=== PATIENT | male | born 1950 | race Caucasian/White ===

== ENCOUNTER 2023-04-26 09:21 | Outpatient (CLI) | payer MEDICARE, SELFPAY ==
--- NOTE | 2023-05-08 19:36 | WPDSLEEPSTUD ---
Sleep Study Date of Study: 04/26/23 Ordering Provider: Daisy Christine APRN Interpreting Physician: Treasure Bain DO Sleep Study Type: Split Polysomnogram Height: 1.7 m Weight: 102.058 kg Body Mass Index: 35.2 Neck Circumference (inches): 17 [place]: 4 Reason for Sleep Study Daytime hypersomnia Sleep History The patient is a 73-year-old male with anxiety, type 2 diabetes, hyperlipidemia, hypertension and history of tobacco use that had a sleep study by his primary care for evaluation sleep apnea. The patient denies awakening from sleep short of breath. He denies awakening at night with heartburn, belching or cough. He denies snoring. He occasionally has trouble sleeping when he has a cold. He occasionally wakes up gasping for air throughout the night. He denies having breathing problems at night observed by himself or others. He denies sweating excessively at night. He denies having heart palpitations or irregular heartbeats during the night. He occasionally falls asleep during the day but never while driving. He occasionally experiences loss of muscle tone when extremely emotional. He denies having trouble at school or work due to sleepiness. He denies sleep paralysis and hypnagogic/ hypnopompic hallucinations. He denies feeling afraid of going to sleep. He denies having nightmares. He occasionally remembers his dreams. He denies having thoughts racing through his mind. He denies feeling sad, depressed or anxious. He denies having muscular tension. He occasionally notices parts of his body jerk. He denies kicking during the night. He occasionally has crawling and aching feelings in his legs and occasionally has leg pain during the night. He occasionally grinds his teeth during sleep and occasionally awakens with morning jaw pain. He occasionally is bothered by pain during the day and occasionally awakened by pain during the night. He occasionally wakes up feeling stiff in morning. He occasionally wakes up with sore or achy muscles. He occasionally wakes up with pain in the neck, spine and other joints. He goes to bed at 9:00 p.m. on weekdays and at 10:00 p.m. on the weekends. He is able to fall asleep immediately. He wakes up 3-4 times throughout the night for unknown reasons. He wakes up at 7:00 a.m. on weekdays. He typically gets 8 hours of sleep per night. He will stay in bed for 5-10 minutes after waking up in the morning. He currently lives with his . He denies consuming caffeinated beverages within 2 hours of bedtime. He will engage in physical exercise before bedtime. He denies reading and watching television before falling asleep. He will take naps in the afternoon or the evening but they are not refreshing. He denies consuming caffeinated beverages throughout the day. He is a former smoker. He denies alcohol and recreational drug use. [facility] Past Medical History Medical History Anxiety disorder Diabetes mellitus type 2 in nonobese Hyperlipidemia Hypertension Impaired glucose tolerance (oral) Family History Family History Father Patient's father is in good health, Onset Age: 89 Mother Acute myocardial infarction, Onset Age: 67 Family history of diabetes mellitus in first degree relative Patient's mother is Other Family history of elevated blood lipids Social History Social History Smoking packs per day: 1.5 Smoking cigarettes per day: 30.0 Years smoked: 55 Smoking pack-years: 82.50 Smoking status: Former smoker Tobacco type: cigarettes Second hand tobacco smoke exposure: No Smoking end date: 04/03/10 Alcohol intake: current Alcohol use details: Social Substance use: never Substance use type: does not use Medications Home Medications Medication Instru
[2023-05-08 19:41] VITALS: BMI 35.2
== END 2023-04-27 07:06 | disposition home or self-care (01) ==
LOC: ANHCSM 09:22
PROVIDERS: PCP Nurse Practitioner Family; Visit Provider Nurse Practitioner Family
DX: G47.00 Insomnia, unspecified (principal); E66.9 Obesity, unspecified; G47.33 Obstructive sleep apnea (adult) (pediatric); G47.61 Periodic limb movement disorder
CPT/HCPCS: 95811

== ENCOUNTER 2023-11-22 01:28 | Day surgery (SDC) | payer MEDICARE, SELFPAY ==
[2023-11-01 14:59] VITALS: BMI 33.5
[2023-11-22 13:40] VITALS: BP 117/60; PULSE 83; RESP 14; TEMP 36.4; O2SAT 96; BMI 31.3
[2023-11-22 14:04] LABS: Glucose Point of Care 94 mg/dl (65-105)
--- NOTE | 2023-11-22 14:08 | WPDANESEPPF ---
Anes - Initial Pre Proc Eval Procedure: Operation Date: 11/22/23 15:00 Proposed Procedures p Esophagogastroduodenoscopy - Maxime Sandoval MD Date/Time: 11/22/23 14:08 Surgeon: Maxime Sandoval MD Pre Op Diagnosis: Other Dysphagia Patient Data Age: 73 Gender: M Height: 1.7 m Weight: 90.8 kg Last Vital Signs Temp 97.6 F 11/22/23 13:40 Pulse 83 11/22/23 13:40 Resp 14 11/22/23 13:40 BP 117/60 11/22/23 13:40 Pulse Ox 96 11/22/23 13:40 O2 Del Method Room Air 11/22/23 13:40 Allergies Allergy/AdvReac Type Severity Reaction Status Date / Time No Known Allergies Allergy Verified 11/22/23 13:47 Home Medications Medication Instructions Recorded Confirmed Type loratadine 10 mg tablet (Claritin) 10 mg PO DAILY 02/15/19 11/22/23 History lorazepam 0.5 mg tablet (Ativan) 0.5 mg PO BID PRN anxiety #90 tabs 05/20/22 11/22/23 Rx escitalopram oxalate 20 mg tablet See Rx Instructions .Route 01/16/23 11/22/23 Rx .COMPLEX #90 tabs carvedilol 6.25 mg tablet See Rx Instructions .Route 01/25/23 11/22/23 Rx .COMPLEX #180 tabs atorvastatin 40 mg tablet See Rx Instructions .Route 07/20/23 11/22/23 Rx .COMPLEX #90 tabs albuterol sulfate 90 mcg/actuation 2 inh inhalation Q4H PRN shortness 08/16/23 11/22/23 Rx aerosol inhaler (ProAir HFA) of breath or wheezing #8.5 grams valsartan 320 See Rx Instructions .Route 09/04/23 11/22/23 Rx mg-hydrochlorothiazide 12.5 mg .COMPLEX #90 tabs tablet ferrous sulfate 325 mg (65 mg 325 mg PO DAILY 10/09/23 11/22/23 History iron) tablet (Feosol) omeprazole 40 mg capsule,delayed 40 mg PO DAILY #90 caps 10/09/23 11/22/23 Rx release semaglutide 0.25 mg or 0.5 mg (2 0.5 mg (0.736 mL) subcut WEEKLY #9 10/12/23 11/22/23 Rx mg/3 mL) subcutaneous pen injector mL (Ozempic) Laboratory Tests 11/22/23 13:52 POC Capillary Glucose 94 mg/dl (65-105) Patient hx anesthesia problems: none Family hx anesthesia problems: none Results Review: All pre-operative results and documents have been reviewed as part of the pre-operative evaluation. [facility] Past Medical History Medical History Anxiety disorder Diabetes mellitus type 2 in nonobese Hyperlipidemia Hypertension Impaired glucose tolerance (oral) Family History Family History Father Patient's father is in good health, Onset Age: 89 Mother Acute myocardial infarction, Onset Age: 67 Family history of diabetes mellitus in first degree relative Patient's mother is Other Family history of elevated blood lipids Social History Social History Smoking packs per day: 1.5 Smoking cigarettes per day: 30.0 Years smoked: 55 Smoking pack-years: 82.50 Smoking status: Former smoker Tobacco type: cigarettes Second hand tobacco smoke exposure: No Smoking end date: 04/03/10 Alcohol intake: current Alcohol use details: Social Substance use: never Substance use type: does not use Living arrangements: with family Spiritual care concerns: No Anes - Eval Final PreProcedure Day of Procedure 11/22/23 14:08 Patient weight: obese Heart: regular rate and rhythm Lungs: clear to auscultation Airway: Mallampati scale class II Neurological: alert and oriented Last oral intake: >/= 8 hours ASA classification: III Emergent: no Anesthetic plan: proceed Anesthesia type and monitoring: general GIVS and standard monitoring Results Review: All pre-operative results and documents have been reviewed as part of the pre-operative evaluation. Informed Consent: The patient's anesthetic plan and its attendant risks and benefits were discussed with the patient/family/POA. Questions were solicited and answers provided to the satisfaction of the patient/family/POA.
[2023-11-22] MEDS: LACTATED RINGERS 1,000 ML 150 ML IV CONT (14:21)
--- NOTE | 2023-11-22 14:36 | PM.HPGS ---
History of Present Illness History of Present Illness Consent: Risks, benefits, and alternatives have been discussed and questions answered. Patient agrees to proceed with procedure. Chief complaint: Other Dysphagia Narrative: Karthik Ordonez is a 73 year old male here for first EGD, h/o gerd on omeprazole, also dysphagia Review of Systems Review of Systems: All systems reviewed & are unremarkable except as noted in HPI and below PMFSH Past Medical History Medical History (Updated 11/22/23 @ 14:37 by Maxime Sandoval MD) Anxiety disorder Diabetes mellitus type 2 in nonobese GERD (gastroesophageal reflux disease) Hyperlipidemia Hypertension Impaired glucose tolerance (oral) Family History Family History Father Patient's father is in good health, Onset Age: 89 Mother Acute myocardial infarction, Onset Age: 67 Family history of diabetes mellitus in first degree relative Patient's mother is Other Family history of elevated blood lipids Social History Social History Smoking packs per day: 1.5 Smoking cigarettes per day: 30.0 Years smoked: 55 Smoking pack-years: 82.50 Smoking status: Former smoker Tobacco type: cigarettes Second hand tobacco smoke exposure: No Smoking end date: 04/03/10 Alcohol intake: current Alcohol use details: Social Substance use: never Substance use type: does not use Living arrangements: with family Spiritual care concerns: No Meds Home Medications and Allergies Home Medications Medication Instructions Recorded Confirmed Type loratadine 10 mg tablet (Claritin) 10 mg PO DAILY 02/15/19 11/22/23 History lorazepam 0.5 mg tablet (Ativan) 0.5 mg PO BID PRN anxiety #90 tabs 05/20/22 11/22/23 Rx escitalopram oxalate 20 mg tablet See Rx Instructions .Route 01/16/23 11/22/23 Rx .COMPLEX #90 tabs carvedilol 6.25 mg tablet See Rx Instructions .Route 01/25/23 11/22/23 Rx .COMPLEX #180 tabs atorvastatin 40 mg tablet See Rx Instructions .Route 07/20/23 11/22/23 Rx .COMPLEX #90 tabs albuterol sulfate 90 mcg/actuation 2 inh inhalation Q4H PRN shortness 08/16/23 11/22/23 Rx aerosol inhaler (ProAir HFA) of breath or wheezing #8.5 grams valsartan 320 See Rx Instructions .Route 09/04/23 11/22/23 Rx mg-hydrochlorothiazide 12.5 mg .COMPLEX #90 tabs tablet ferrous sulfate 325 mg (65 mg 325 mg PO DAILY 10/09/23 11/22/23 History iron) tablet (Feosol) omeprazole 40 mg capsule,delayed 40 mg PO DAILY #90 caps 10/09/23 11/22/23 Rx release semaglutide 0.25 mg or 0.5 mg (2 0.5 mg (0.736 mL) subcut WEEKLY #9 10/12/23 11/22/23 Rx mg/3 mL) subcutaneous pen injector mL (Ozempic) Allergies Allergy/AdvReac Type Severity Reaction Status Date / Time No Known Allergies Allergy Verified 11/22/23 13:47 Vital Signs Vital Signs - 24 hr 11/22/23 13:40 Temperature 97.6 F Pulse Rate 83 Respiratory Rate 14 Blood Pressure 117/60 Pulse Oximetry 96 Oxygen Delivery Room Air Exam Const: General: comfortable and no acute distress HENMT: Face/Nose/Sinus: Normal nares present Eyes: General: appearance normal, both eyes and all related structures Neck: Neck: no JVD Resp: Auscultation: clear to auscultation bilaterally Cardio: Rate: regular rate Rhythm: regular rhythm GI: Inspection: non-distended GI Palp: Yes Soft to palpation Skin: General skin exam: normal color Neuro: General: gait normal Speech: normal speech Extrem: General: normal to inspection Psych: Mental Status: mental status grossly normal Assessment and Plan Assessment and plan (1) Esophageal dysphagia: Code(s): R13.19 - Other dysphagia Status: Acute Assessment and Plan: egd (2) GERD (gastroesophageal reflux disease): Code(s): K21.9 - Gastro-esophageal reflux disease without esophagiti
[2023-11-22 14:54] VITALS: BP 106/69; PULSE 83; RESP 18; O2SAT 98
[2023-11-22 15:04] VITALS: BP 102/60; PULSE 77; RESP 22; O2SAT 98
[2023-11-22 15:14] VITALS: BP 105/60; PULSE 72; RESP 17; O2SAT 98
== END 2023-11-22 15:41 | disposition home or self-care (01) ==
PROVIDERS: PCP Nurse Practitioner Family; Visit Provider Internal Medicine Gastroenterology
PROC: 0DJ08ZZ Inspection of Upper Intestinal Tract, Via Natural or Artificial Opening Endoscopic (ICD-10-PCS; CPT 43235; principal; 2023-11-22 15:00)
DX: C15.4 Malignant neoplasm of middle third of esophagus (principal); C15.5 Malignant neoplasm of lower third of esophagus; R13.19 Other dysphagia; K21.9 Gastro-esophageal reflux disease without esophagitis; I10 Essential (primary) hypertension; E78.5 Hyperlipidemia, unspecified; E11.9 Type 2 diabetes mellitus without complications; F41.9 Anxiety disorder, unspecified; E66.9 Obesity, unspecified; Z68.31 Body mass index [BMI] 31.0-31.9, adult; Z79.51 Long term (current) use of inhaled steroids; Z79.85 Long-term (current) use of injectable non-insulin antidiabetic drugs; Z87.891 Personal history of nicotine dependence; Z82.49 Family history of ischemic heart disease and other diseases of the circulatory system
CPT/HCPCS: 43239; 82948; 88305; 88342; J2704; J7120

== ENCOUNTER 2023-11-29 08:29 | Outpatient (CLI) | payer MEDICARE, SELFPAY ==
--- NOTE | ~2023-11-29 | CT_ITS ---
Clinical Indication: Dysphagia, other diseases of esophagus CT Scan of the Chest, Abdomen, and Pelvis with Contrast: Technique: Contiguous sections were acquired throughout the chest, abdomen, and pelvis after intraven ous administration of 100 cc of Omnipaque 350. Dose reduction technique was used on this scan by uti lizing automated exposure control and iterative reconstruction technique. The dose-length product (DL P) was 1086.47 mGy-cm. Findings: There is irregular masslike circumferential wall thickening of the distal soft tissues extending to t he GE junction region, with lesion measuring approximately 5.4 x 3.9 cm in transverse dimensions, and approximately at least 9 cm in craniocaudal extent. There is mild upstream distention of the esophag us. There are multiple mildly enlarged mediastinal lymph nodes, suspicious for za metastatic disea se, most notably along the right paratracheal stripe and in the AP window region (axial image 44 for example). Mildly enlarged subcarinal node also likely present. Mediastinal vascular structures are un remarkable. No pericardial effusion. Minimal pleural fluid present bilaterally. The lungs are clear. No pulmonary nodules or infiltrates are noted. Probable mild emphysema. There are several small hypodense hepatic lesions, largest measuring 13 mm (series 3 images 106, 108, 122, 130), which could represent metastatic lesions. There is metastatic lymphadenopathy versus poss ibly extension of the primary mass into the epigastric/gastrohepatic ligament region, with conglomera te presumed za metastatic disease in this region measuring 5.8 x 3.4 cm (series 3 image 29). There are additional enlarged periaortic/retroperitoneal lymph nodes, compatible with metastatic disease, several which are posterior to the aorta and lifting off the spine. The spleen, pancreas, gallbladder, adrenals and kidneys are within normal limits. There are atheroscl erotic calcifications of the aorta. No bowel obstruction or bowel wall thickening. There is no evidence to suggest acute appendicitis. Urinary bladder is unremarkable. No pelvic mass seen. No ascites. 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 Mild upstream distention of the esophagus. Metastatic lymphadenopathy, including mediastinal lymphadenopathy, metastatic epigastric/gastrohepati c ligament region lymphadenopathy, and additional retroperitoneal metastatic lymphadenopathy. Please see details above. Several hypodense hepatic lesions measure up to 13 mm, suspicious for metastatic disease unless prove n otherwise. Minimal pleural fluid bilaterally. Reviewed, dictated and finalized at location M. Impression: Findings consistent with primary esophageal carcinoma the distal third of the e sophagus, with lesion measuring approximately 5.4 x 3.9 x 9 cm in extent. Mild upstream distention of the esophagus. Metastatic lymphadenopathy, including mediastinal lymphadenopathy, metastatic e pigastric/gastrohepatic ligament region lymphadenopathy, and additional retrope ritoneal metastatic lymphadenopathy. Please see details above. Several hypodense hepatic lesions measure up to 13 mm, suspicious for metastati c disease unless proven otherwise. Minimal pleural fluid bilaterally.
[2023-11-29 09:17] LABS: Estimated Glomerular Filt Rate > 60
== END 2023-11-29 08:30 | disposition home or self-care (01) ==
LOC: ANHIMG 08:33
PROVIDERS: PCP Nurse Practitioner Family; Visit Provider Internal Medicine Gastroenterology
DX: C77.8 Secondary and unspecified malignant neoplasm of lymph nodes of multiple regions (principal); K76.9 Liver disease, unspecified; K22.89 Other specified disease of esophagus; R13.10 Dysphagia, unspecified
CPT/HCPCS: 71260; 74177; Q9967

== ENCOUNTER 2023-12-13 15:44 | Outpatient (CLI) | payer MEDICARE, SELFPAY ==
[2023-12-13 15:58] LABS: Basophils Absolute Auto 0.1 K/mm3 (0.0-0.1); Basophils Percent Auto 0.6 % (0.2-1.2); Eosinophils Absolute Auto 0.1 K/mm3 (0-0.3); Eosinophils Percent Auto 1.4 % (0-4.4); Hematocrit 32.4 % (42.0-52.0); Hemoglobin 10.3 g/dL (14.0-18.0); Immature Granulocyte Absolute 0.03 K/mm3 (0.00-0.031); Immature Granulocyte Percent A 0.3 % (0-0.5); Lymphocytes Absolute Auto 0.76 K/mm3 (0.9-3.2); Lymphocytes Percent Auto 8.2 % (18.3-44.2); Mean Corpuscular HGB Conc 31.8 g/dl (32-36); Mean Platelet Volume 8.3 fl (7.4-10.4); Monocytes Absolute Auto 0.8 K/mm3 (0.1-0.6); Monocytes Percent Auto 8.6 % (2.6-8.5); Neutrophils Absolute Auto 7.5 K/mm3 (1.3-6.7); Neutrophils Percent Auto 80.9 % (45.5-73.1); Platelet Count Result 334 k/mm3 (150-375); Red Blood Count 3.68 M/mm3 (4.6-6.20); Red Cell Distribution Width 14.1 % (11.5-14.5); White Blood Count 9.3 K/mm3 (4.5-10.0)
[2023-12-13 19:25] LABS: Alanine Aminotransferase 17 U/L (6-50); Albumin Level 3.9 g/dL (3.5-5.1); Alkaline Phosphatase 65 U/L (38-126); Anion Gap 13 mmol/L (4-12); Aspartate Amino Transferase 36 U/L (17-59); Bilirubin,Total 0.4 mg/dL (0.2-1.3); Blood Urea Nitrogen 16 mg/dL (9-20); Calcium 9.1 mg/dL (8.4-10.2); Carbon Dioxide 25 mmol/L (22-30); Chloride 96 mmol/L (98-107); Estimated Glomerular Filt Rate > 60; Glucose 110 mg/dL (65-110); Sodium 134 mmol/L (137-145)
[2023-12-13 19:26] LABS: Iron 34 ug/dL (49-181)
[2023-12-13 19:36] LABS: Percent Iron Saturation 13 % (20-50)
[2023-12-13 20:31] LABS: Folic Acid 9.2 ng/mL (2.76->20)
== END 2023-12-13 15:45 | disposition home or self-care (01) ==
LOC: ANHLAB 15:46
PROVIDERS: PCP Nurse Practitioner Family; Visit Provider Internal Medicine Hematology & Oncology
DX: D64.9 Anemia, unspecified (principal)
CPT/HCPCS: 36415; 80053; 82607; 82728; 82746; 83540; 83550; 85025

== ENCOUNTER 2023-12-22 10:07 | Outpatient (CLI) | payer MEDICARE, SELFPAY ==
--- NOTE | ~2023-12-22 | PE_ITS ---
EXAMINATION: PET skull to mid thigh DATE: 12/22/2023 12:28 INDICATION: Esophageal cancer TECHNIQUE: Blood glucose level was 89 mg/dL. 11.142 mCi of 18-fluorodeoxyglucose (18-FDG) was adminis tered i.v. Low dose computed tomography (CT) images were acquired from the base of the brain to the p roximal thighs for attenuation correction and anatomic localization. Positron emission tomography (PE T) images were acquired in the same distribution beginning 87 minutes after injection. Images includi ng fused PET/CT images were reconstructed in axial, coronal, and sagittal planes. Automated exposure control technique was employed. The dose-length product was 1144.06mGy-cm. COMPARISON: None FINDINGS: Head/neck: There is symmetric increased activity in the oral cavity, palatine and lingual tonsils, laryngeal mus cles and ocular muscles without CT correlate, likely physiologic. There are couple FDG avid, mildly p rominent but still normal-sized bilateral inferior jugular chain lymph nodes measuring 9 mm in short axis diameter with maximal severe 14 on the left and 8 mm with maximal SUV of 30.4 on the right. No o ther more cephalad pathologically enlarged or FDG avid cervical lymph nodes. Chest: Small bilateral pleural effusions with mild dependent atelectasis in bilateral lower lobes. Additiona l discoid atelectasis at the lingula and right middle lobe. Calcified lingular nodule along with calc ified left hilar lymph node consistent with old granulomatous disease. Heart size is normal. Atherosc lerotic coronary artery calcification is. No pericardial effusion. Thoracic aorta is normal in calibe r. Prominent wall thickening and FDG uptake in the distal third of the esophagus consistent with prov ided history of esophageal cancer. There are several enlarged and normal-sized FDG avid mediastinal l ymph nodes. This includes a 3.3 x 1.7 cm prevascular lymph node with maximal SUV of 34.5 and a 3.2 x 2.9 cm paraesophageal lymph node at the level of T9-T10 with maximal SUV of 13.7 Abdomen/pelvis/proximal thighs: There is conglomeration of FDG avid gastrohepatic lymph nodes many of which are difficult to distingu stanislaw from the adjacent proximal stomach stomach consistent with additional metastatic disease. Additio nal enlarged and FDG avid retroperitoneal lymph nodes around the pancreas and along the mid and upper abdominal aorta and inferior vena cava. There are 4 FDG avid hepatic masses concerning for metastati c disease which are nearly indiscernible on CT imaging was vague decreased attenuation in the region of the FDG uptake. The largest in segment IVb measures approximately 3 cm with maximal SUV of 28.3. G allbladder, spleen, pancreas and bilateral adrenal glands are normal. Physiologic renal accumulation and excretion of FDG activity in the kidneys, bladder and along portions of ureters. Mild uptake sca ttered throughout the bowels without radiologic correlate, also likely physiologic. Moderate scattere d diverticulosis without adjacent inflammatory stranding to suggest diverticulitis. Normal appendix. Musculoskeletal: There is diffuse mild marrow uptake throughout the bones without suspicious lytic or blastic bone les ions to suggest metastatic disease. There is severe cervical and lumbar and moderate intervening thor acic spondylosis. Mild uptake overlying the right greater trochanter consistent with trochanteric bur sitis. IMPRESSION: 1. Wall thickening and prominent increased FDG uptake at the distal third of the esophagus consistent with reported primary esophageal cancer with FDG avid metastatic lymphadenopathy at the lower neck, mediastinum and upper abdomen along with 4 FDG avid avid liver lesions also consistent with metastati c disease. Reviewed, dictated and finalized at location B. IMPRESSION
[2023-12-22 10:54] LABS: Glucose Point of Care 89 mg/dl (65-105)
== END 2023-12-22 10:08 | disposition home or self-care (01) ==
PROVIDERS: PCP Nurse Practitioner Family; Visit Provider Internal Medicine Hematology & Oncology
DX: C15.4 Malignant neoplasm of middle third of esophagus (principal)
CPT/HCPCS: 78815; A9552

== ENCOUNTER 2023-12-22 12:24 | Outpatient (CLI) | payer MEDICARE, SELFPAY ==
[2023-12-22 13:48] LABS: INR 1.1; Partial Thromboplastin Time 28.5 Seconds (22.3-36.8); Prothrombin Time 14.7 Seconds (11.1-14.7)
== END 2023-12-22 12:25 | disposition home or self-care (01) ==
LOC: ANHSURGERY 12:27
PROVIDERS: PCP Nurse Practitioner Family; Visit Provider Surgery
DX: C15.9 Malignant neoplasm of esophagus, unspecified (principal); Z01.818 Encounter for other preprocedural examination
CPT/HCPCS: 36415; 85610; 85730

== ENCOUNTER 2023-12-24 10:25 | Outpatient (CLI) | payer MEDICARE, SELFPAY ==
--- NOTE | ~2023-12-24 | MR_ITS ---
EXAMINATION: MR brain/brain stem wo/w con DATE: 12/24/2023 11:25 INDICATION: Cancer of middle third of the esophagus. TECHNIQUE: Magnetic resonance imaging (MRI) of the brain and brainstem was performed without and with 19 mL MultiHance intravenous contrast. COMPARISON: None. FINDINGS: There is an old microhemorrhage in right cerebellum. There are scattered areas of nonspecif ic increased T2-weighted signal intensity in the cerebral white matter, which is within normal limits for the patient's age. There is no acute ischemic infarct or abnormal mass lesion. The ventricles ar e normal in size. There are likely changes of ocular lens replacement surgeries. There is mild mucosa l thickening in the ethmoid sinuses. The mastoid air cells are normal. IMPRESSION: 1. No evidence of metastatic disease. Reviewed, dictated and finalized at location A.
== END 2023-12-24 10:26 | disposition home or self-care (01) ==
PROVIDERS: PCP Nurse Practitioner Family; Visit Provider Internal Medicine Hematology & Oncology
DX: C15.4 Malignant neoplasm of middle third of esophagus (principal)
CPT/HCPCS: 70553; A9577

== ENCOUNTER 2023-12-25 02:26 | Day surgery (SDC) | payer MEDICARE, SELFPAY ==
--- NOTE | 2023-12-21 13:04 | PC.NURSE ---
Report to the Outpatient Waiting Room, entrance under the green pavilion located off [facility], at time _06:00___on date _12/25/23 . Planned Procedure Time: _07:30am .? Time changes happen often and if your time is changed the preop area will call you the afternoon before. - You and your visitor will be asked to self-screen and do not enter if you have any COVID symptoms. Please call surgeon if you need to reschedule. - A mask is optional within the hospital at this time. Patients may have clear liquids (water, carbonated beverages, clear teas, apple juice) until 3 hours prior to surgery with a maximum of 20 ounces. - No food from midnight until time of surgery and no smoking Take only the following medications with a SIP of water on the morning of surgery: ___ Lorazepam if needed. . DO NOT STOP ANY OF YOUR OTHER PRESCRIPTION MEDICATIONS PRIOR TO SURGERY EXCEPT THE FOLLOWING Medications to discontinue per physician None ____ Date to take last dose None Please no make-up, nail belarusian, hairspray, perfume, deodorant, or body powder the day of surgery.? No jewelry (including any body piercings) or valuables the day of surgery, leave them at home.? Please take a shower or bath the night before, or the morning of, surgery with an antibacterial soap.? Wear comfortable, loose fitting clothing. - Jewelry must be removed prior to entering the operating room.? Rings and piercings that are not removed may be cut off. - The hospital will not accept responsibility for valuables.? - Please leave all valuables, including medications, at home the day of surgery. If you are going home after surgery, a licensed courier delivery driver must drive you home.? - NO public transportation without another adult if you receive anesthesia. - We recommend that an adult stay with you for 24 hours following discharge. - We also recommend that you do not drive, make important decision, drink alcoholic beverages, or take any drugs that were not prescribed by your health care provider for at least 24 hours after your discharge time. Follow any additional instructions given to you from your surgeon. Pt to get his labs done tomorrow after PET scan in main Lab. Telephone instructions given to _patient Arina and asked if any additional questions and then verbalized understanding. Patient advised to call surgeon office or pre surgery nurse liaison [phone] if any additional questions.
[2023-12-21 13:10] VITALS: BMI 30.4
--- NOTE | ~2023-12-25 | XR_ITS ---
EXAMINATION: XR fl guide central line place DATE: 12/25/2023 08:09 INDICATION: Port placement. TECHNIQUE: A single intraoperative fluoroscopic view of the chest was obtained. I was not present. Fl uoroscopy exposure time was 30 seconds. COMPARISON: Chest CT 11/29/2023 FINDINGS: There is a right subclavian port with tip in superior vena cava. IMPRESSION: 1. Right subclavian port with tip in superior vena cava. Reviewed, dictated and finalized at location A.
--- NOTE | ~2023-12-25 | XR_ITS ---
EXAMINATION: XR chest port-a-cath/central DATE: 12/25/2023 08:36 INDICATION: Port placement. TECHNIQUE: A single frontal view of the chest was obtained. COMPARISON: Chest CT 11/29/2023 FINDINGS: A calcified left lung nodule is consistent with old granulomatous disease. There are airspa ce opacities in the lower lung zones. No pleural effusion or pneumothorax. The heart size is normal. There is a right subclavian port with tip in superior vena cava. IMPRESSION: 1. Port tip in superior vena cava. 2. Airspace opacities in the lower lung zones, likely atelectasis. Reviewed, dictated and finalized at location A.
[2023-12-25 06:47] LABS: Glucose Point of Care 118 mg/dl (65-105)
[2023-12-25 07:00] VITALS: BP 176/86; PULSE 66; RESP 14; TEMP 36.2; O2SAT 98
[2023-12-25] MEDS: LACTATED RINGERS 1,000 ML 30 ML IV CONT (07:00)
--- NOTE | 2023-12-25 07:06 | WPDANESEPPF ---
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 Patient Data Age: 73 Gender: M Height: 1.7 m Weight: 88 kg Allergies Allergy/AdvReac Type Severity Reaction Status Date / Time No Known Allergies Allergy Verified 12/21/23 13:07 Home Medications Medication Instructions Recorded Confirmed Type loratadine 10 mg tablet (Claritin) 10 mg PO DAILY 02/15/19 12/21/23 History atorvastatin 40 mg tablet See Rx Instructions .Route 07/20/23 12/21/23 Rx .COMPLEX #90 tabs omeprazole 40 mg capsule,delayed 40 mg PO DAILY #90 caps 10/09/23 12/21/23 Rx release lorazepam 0.5 mg tablet (Ativan) 0.5 mg PO BID PRN anxiety #90 tabs 11/30/23 12/21/23 Rx Laboratory Tests 12/25/23 06:45 POC Capillary Glucose 118 H mg/dl (65-105) Patient hx anesthesia problems: none Family hx anesthesia problems: none Results Review: All pre-operative results and documents have been reviewed as part of the pre-operative evaluation. [facility] Past Medical History Medical History Anxiety disorder Diabetes mellitus type 2 in nonobese GERD (gastroesophageal reflux disease) Hyperlipidemia Hypertension Impaired glucose tolerance (oral) Mass of esophagus Family History Family History Father Patient's father is in good health, Onset Age: 89 Mother Acute myocardial infarction, Onset Age: 67 Family history of diabetes mellitus in first degree relative Patient's mother is Other Family history of elevated blood lipids Social History Social History Smoking packs per day: 1.5 Smoking cigarettes per day: 30.0 Years smoked: 40 Smoking pack-years: 60.00 Smoking status: Former smoker Tobacco type: cigarettes Second hand tobacco smoke exposure: No Smoking end date: 04/03/10 Alcohol intake: current Alcohol use details: Social Substance use: never Substance use type: does not use Living arrangements: with family Additional living arrangements comments: Spiritual care concerns: No Anes - Eval Final PreProcedure Day of Procedure 12/25/23 07:06 Patient weight: obese Heart: regular rate and rhythm Lungs: decreased breath sounds Airway: Mallampati scale class III Neurological: alert and oriented Last oral intake: >/= 8 hours ASA classification: IV Emergent: no Anesthetic plan: proceed Anesthesia type and monitoring: general GIVS and standard monitoring Results Review: All pre-operative results and documents have been reviewed as part of the pre-operative evaluation. Informed Consent: The patient's anesthetic plan and its attendant risks and benefits were discussed with the patient/family/POA. Questions were solicited and answers provided to the satisfaction of the patient/family/POA.
--- NOTE | 2023-12-25 07:21 | PM.IMHP ---
H&P: HPI History of Present Illness Date/Time: 12/25/23 07:21 Chief Complaint: Esophageal cancer Narrative: Pt has dx of esophageal CA and needs to have chemo tx. He presents for placement of port today. No prior hx of port or central lines. Review of Systems Review of Systems: The remainder of the review of systems to include constitutional, HEENT, cardiovascular, respiratory, GI, , integumentary, musculoskeletal, endocrine, immunologic, hematologic, psychiatric, and neurologic are all negative except for which is mentioned above in the HPI. [facility] Past Medical History Medical History Anxiety disorder Diabetes mellitus type 2 in nonobese GERD (gastroesophageal reflux disease) Hyperlipidemia Hypertension Impaired glucose tolerance (oral) Mass of esophagus Family History Family History Father Patient's father is in good health, Onset Age: 89 Mother Acute myocardial infarction, Onset Age: 67 Family history of diabetes mellitus in first degree relative Patient's mother is Other Family history of elevated blood lipids Social History Social History Smoking packs per day: 1.5 Smoking cigarettes per day: 30.0 Years smoked: 40 Smoking pack-years: 60.00 Smoking status: Former smoker Tobacco type: cigarettes Second hand tobacco smoke exposure: No Smoking end date: 04/03/10 Alcohol intake: current Alcohol use details: Social Substance use: never Substance use type: does not use Living arrangements: with family Additional living arrangements comments: Spiritual care concerns: No Meds Home Medications and Allergies Home Medications Medication Instructions Recorded Confirmed Type loratadine 10 mg tablet (Claritin) 10 mg PO DAILY 02/15/19 12/21/23 History atorvastatin 40 mg tablet See Rx Instructions .Route 07/20/23 12/21/23 Rx .COMPLEX #90 tabs omeprazole 40 mg capsule,delayed 40 mg PO DAILY #90 caps 10/09/23 12/21/23 Rx release lorazepam 0.5 mg tablet (Ativan) 0.5 mg PO BID PRN anxiety #90 tabs 11/30/23 12/21/23 Rx Allergies Allergy/AdvReac Type Severity Reaction Status Date / Time No Known Allergies Allergy Verified 09/19/24 13:07 Exam Const: General: comfortable and no acute distress HENMT: Ears: TM's normal bilaterally Face/Nose/Sinus: Normal nares present Mouth: Yes moist mucous membranes Eyes: General: appearance normal, both eyes and all related structures Sclera: sclerae normal Pupils: Equal, round and reactive pupils present EOM: EOMs intact bilaterally Neck: Neck: supple and no JVD Resp: Effort & Inspection: normal respiratory effort Auscultation: clear to auscultation bilaterally Cardio: Rate: regular rate Rhythm: regular rhythm GI: GI Palp: Yes Soft to palpation, No Firmness to palpation present (GI), No Tenderness to palpation present (GI), No Guarding due to palpation present (GI) and No Hernia present Skin: General skin exam: normal color and no rashes or lesions noted Neuro: General: gait normal Speech: normal speech Motor exam (neuro): 5/5 motor strength present throughout Sensory Exam: normal sensation Psych: Mental Status: mental status grossly normal Affect: normal affect Assessment and Plan Assessment and plan (1) Mass of esophagus: Code(s): K22.89 - Other specified disease of esophagus Status: Acute Assessment and Plan: Pt has esophageal CA. Will proceed with placement of portacatheter today. Risks, benefits, indications, and expected outcomes were discussed in detail with the patient and/or family. They understand and I have answered all other questions. They wished to proceed with surgery as outlined above. Risk of iatrogenic pneumothorax and bleeding needing blood transfusion or chest tube discussed
--- NOTE | 2023-12-25 07:25 | WPDHPUPDATE1 ---
History and Physical Update Update Date/Time: 12/25/23 07:25 History and Physical has been reviewed, including an updated exam of the patient. There are NO changes in the patient's condition. Risks, benefits, and alternatives have been discussed and questions answered. Patient agrees to proceed with procedure.
[2023-12-25] MEDS: LIDO 1%/EPINEPHRINE 1:100,000 50 ML VIAL 20 ML INFILTRATE (07:29)
[2023-12-25] MEDS: HEPARIN SODIUM 5,000 UNITS/ML VIAL 5000 UNITS IRRIGATION (07:29)
[2023-12-25] MEDS: BUPivacaine HCL 0.5% 10 ML AMP 20 ML INFILTRATE (07:29)
[2023-12-25] MEDS: HEPARIN SODIUM 1,000 UNITS/ML VIAL 1000 UNITS IV PUSH (07:29)
[2023-12-25] MEDS: ceFAZolin 2 GM/D5W 50 ML 2 GM/50 ML BAG IVPB (07:30)
[2023-12-25 08:21] VITALS: BP 97/54; PULSE 91; RESP 12; O2SAT 97
--- NOTE | 2023-12-25 08:23 | W.PM.PROC2 ---
Procedure Note - Detailed Date of Procedure 12/25/23 Pre-op Diagnosis Cancer of middle 3rd of esophagus Post-op Diagnosis Same Procedure Performed Placement of right subclavian vein single-lumen port a catheter with intraoperative fluoroscopy Surgeon Av Cui MD Anesthesia MAC Indications Patient is 71-year-old gentleman who has esophageal carcinoma. He is in a chemotherapy treatments. He presents now for placement of a greer catheter. Findings None significant Description of Procedure After informed consent was obtained patient brought to the operating room was placed supine position and then IV sedation was administered by anesthesia. The bilateral upper anterior neck and chest was then prepped and draped usual sterile fashion. A time-out was then performed correctly identifying the patient as well as procedure to be performed he was given perioperative IV antibiotics. I then anesthetized an area just below the medial 3rd of the right clavicle with 1% lidocaine mixed with 0.5% Marcaine. I then made a transverse incision is area the scalpel and dissected down through the dermis of the skin. Electrocautery was then used to dissect down through the subcu tissues to the anterior pectoralis fascia. With a combination of blunt finger electrocautery dissection and created a subcutaneous port pocket just below the incision. The patient was then placed head-down Trendelenburg position and then long 18gauge spinal needle was then used to cannulate the right subclavian vein without any difficulty. There was prompt return of dark venous appearing blood. A guidewire was advanced down through the needle into the right subclavian vein then to the superior vena cava. Intraoperative fluoroscopy was then used to visualize the tip of the guidewire which was in the proper position in the superior vena cava. A dilator breakaway sheath was then advanced over the guidewire. A dilator and guidewire were removed and the sheath was left in place. A 9.6 [place] silastic single-lumen catheter was advanced through the sheath into the right subclavian vein subcu down into the right atrium of the heart. The sheath was then torn away leaving the catheter in place. Intraoperative fluoroscopy was then used again to visualize the tip of the catheter and then with traction on the catheter externals the chest wall I pulled back into the tip of the catheter was in the distal superior vena cava on fluoroscopy. The catheter was then cut to appropriate length at the skin level and attached to the Smart Port. The Smart port was then secured in subcu port pocket on 3 sides utilizing 3-0 Prolene suture. The subcutaneous port pocket was then irrigated sterile saline solution hemostasis was good. I then accessed the port with the Gaona needle and it aspirated blood easily and then it was flushed with heparinized saline solution. The incision was then closed utilizing interrupted 3-0 Vicryl sutures in the subcutaneous tissues. The skin edges were then approximated utilizing a running subcuticular 4 Monocryl suture. I then accessed the port percutaneously and again it aspirated blood easily and was flushed with 5000units of IV heparin. Incision was then cleaned the skin glue was applied. The patient tolerated the procedure well no complications. All sponges, needles, and instrument counts were correct at the end procedure. EBL was _5__cc. The patient was awakened and taken to recovery in stable and satisfactory condition. Implants 9.6 [place] single-lumen catheter attached to titanium Smart Port right subclavian vein. Estimated Blood Loss 5 Drains No Packing No Pathology None sent Complications No immediate complications Condition Stable Disposition PACU [facility] Billing Surgery - Charge Forward: Surgery Billing
[2023-12-25 08:50] VITALS: BP 108/52; PULSE 88; RESP 12
[2023-12-25 09:20] VITALS: BP 108/60; PULSE 80; RESP 20
== END 2023-12-25 09:28 | disposition home or self-care (01) ==
PROVIDERS: PCP Nurse Practitioner Family; Visit Provider Surgery
PROC: (CPT 36561; principal; 2023-12-25 07:30)
DX: C15.4 Malignant neoplasm of middle third of esophagus (principal); I10 Essential (primary) hypertension; E78.5 Hyperlipidemia, unspecified; E11.9 Type 2 diabetes mellitus without complications; K21.9 Gastro-esophageal reflux disease without esophagitis; F41.9 Anxiety disorder, unspecified; E66.9 Obesity, unspecified; Z68.29 Body mass index [BMI] 29.0-29.9, adult; Z87.891 Personal history of nicotine dependence; Z82.49 Family history of ischemic heart disease and other diseases of the circulatory system
CPT/HCPCS: 36561; 36415; 77001; 82948; 85610; 85730; C1788; J0690; J1644; J2405; J2704; J3010; J7030; J7120

== ENCOUNTER 2024-02-03 09:43 | Inpatient (IN) | payer MEDICARE, SELFPAY ==
[2024-02-03] VITALS (34 sets, daily range): BP systolic 107–136; BP diastolic 47–71; PULSE 62–90; RESP 11–28; TEMP 37.2–37.6; O2SAT 95–100; BMI 27.5
--- NOTE | ~2024-02-03 | XR_ITS ---
EXAMINATION: XR chest 2V DATE: 02/03/2024 10:10 INDICATION: Syncope. TECHNIQUE: frontal and lateral views of the chest were obtained. COMPARISON: Chest radiograph dated 12/25/2023 FINDINGS: Right subclavian central venous port catheter with distal tip at the caudal superior vena cava. A few opacities at the left lower lung zone consistent with a small posterior layering pleural effusion an d associated atelectasis versus less likely pneumonia. Calcified nodules in the left midlung zone con sistent with old granulomatous disease. No pulmonary edema, pneumothorax or right-sided pleural effus ion. The cardiomediastinal silhouette is normal. Moderate thoracic spondylosis. IMPRESSION: 1. Small left pleural effusion with associated atelectasis versus less likely pneumonia. Reviewed, dictated and finalized at location A. IMPRESSION: 1. Small left pleural effusion with associated atelectasis versus less likely p neumonia.
--- NOTE | ~2024-02-03 | CT_ITS ---
Clinical Indication: Syncope CT Scan of the Chest with Contrast: Technique: Contiguous sections were acquired throughout the chest after intravenous administration of 75 cc of Omnipaque 350. Dose reduction technique was used on this scan by utilizing automated exposu re control and iterative reconstruction technique. The dose-length product (DLP) was 201.58 mGy-cm. COMPARISON: 11/29/2023 Findings: Stable prominent subcarinal lymph nodes. Mildly prominent prevascular lymph nodes are present, minima lly decreased from prior exam. There is no filling defect in the pulmonary arterial tree to suggest p ulmonary embolus. There is no evidence of aortic dissection or aneurysm. No pericardial effusion. The re is probable wall thickening of the distal esophagus. Moderate left pleural effusion present. No right pleural effusion.. There is mild emphysema. Calcified lingular granuloma present. There is left basilar atelectatic arizmendi ge. Images through the upper abdomen reveal [id number] hiatal hernia. Impression: Wall thickening of the distal esophagus, compatible with esophageal carcinoma. Degree of wall thicken ing is probably minimally improved from prior exam. Moderate left pleural effusion with left basilar atelectatic change. Mild emphysema. [id number] hiatal hernia. Mild mediastinal lymphadenopathy, as noted above, probably minimally improved in some areas as compar ed to prior exam. Reviewed, dictated and finalized at location M. [employer] Impression: Wall thickening of the distal esophagus, compatible with esophageal carcinoma. Degree of wall thickening is probably minimally improved from prior exam. Moderate left pleural effusion with left basilar atelectatic change. Mild emphysema. [id number] hiatal hernia. Mild mediastinal lymphadenopathy, as noted above, probably minimally improved i n some areas as compared to prior exam.
--- NOTE | ~2024-02-03 | US_ITS ---
EXAMINATION: US thoracentesis DATE: 02/06/2024 15:41 INDICATION: pleural effusion TECHNIQUE: The procedure and its risks, benefits, and alternatives were discussed with the patient. P otential risks discussed included bleeding, infection, and pneumothorax. The patient understood the r isks and agreed to proceed. The skin was prepped and draped in sterile fashion. 1% lidocaine was used for local anesthesia. Under ultrasound guidance, a 5 Fr catheter with trochar was advanced into the left pleural effusion. Fluid was aspirated. The catheter was removed, and a dressing was applied. The re were no immediate complications. FINDINGS: Ultrasound images demonstrate a left pleural effusion and the catheter within the fluid. IMPRESSION: 1. Successful ultrasound-guided thoracentesis yielding 700 mL of dudley-colored fluid. Reviewed, dictated and finalized at location A. IER
--- NOTE | ~2024-02-03 | XR_ITS ---
EXAMINATION: [id number] DATE: 02/06/2024 15:36 INDICATION: Left pleural effusion status post thoracentesis. TECHNIQUE: Frontal and lateral views of the chest were obtained. COMPARISON: Chest 2 views 02/03/2024 FINDINGS: A calcified left lung nodule is consistent with old granulomatous disease. No pleural effus ion or pneumothorax. The heart size is normal. There is a right subclavian port with tip in superior vena cava. IMPRESSION: 1. No acute cardiopulmonary disease. Reviewed, dictated and finalized at location A. [employer] DESK MANAGER
--- NOTE | ~2024-02-03 | CT_ITS ---
EXAMINATION: CT brain wo con DATE: 02/03/2024 10:35 INDICATION: Syncope TECHNIQUE: Computed tomography (CT) of the head was performed without intravenous contrast. Sagittal and coronal reconstructions were performed. The mA was adjusted according to patient size. Iterative reconstruction technique was employed. The dose-length product was 605.33 mGy-cm. COMPARISON: head CT dated 11/21/2006 and brain MR dated 12/24/2023 FINDINGS: No acute intracranial hemorrhage, acute infarction or abnormal extra axial fluid collection. There is mild scattered white matter hypoattenuation consistent with chronic small vessel ischemic disease. V entricles are normal and symmetric. No mass/mass effect. Changes of bilateral intraocular lens replac ement. The orbits and mastoid air cells are normal. Dependently layering fluid/mucus nearly filling t he right sphenoid sinus which can be seen with acute sinusitis. IMPRESSION: 1. Normal aging brain. No acute intracranial process. 2. Fluid/mucus nearly filling the right sphenoid sinus which can be seen with acute sinusitis Reviewed, dictated and finalized at location A. IMPRESSION: 1. Normal aging brain. No acute intracranial process. 2. Fluid/mucus nearly filling the right sphenoid sinus which can be seen with a cute sinusitis
--- NOTE | 2024-02-03 10:02 | ECG_ITS ---
Test Date: 2024-02-03 09:48:40 Measurements Intervals [place] Rate: 63 P: 58 NM: 148 QRS: 25 QRSD: 94 T: 59 QT: 404 QTc: 414 Interpretive Statements SINUS RHYTHM BASELINE ARTIFACT- II, III, AVR, AVL, AVF, V3 NORMAL ECG No previous ECG available for comparison Electronically Signed On 02-03-2024 11:08:08 CDT by Mannie Gandhi D.O.
--- NOTE | 2024-02-03 10:16 | ED_ITS ---
HPI - Syncope General Chief Complaint: Syncope Stated Complaint: syncope Time Seen by Provider: 02/03/24 10:10 Source: patient, family and EMS Mode of arrival: EMS History of Present Illness HPI narrative: 73 years old white male came to the ED by ambulance because of syncope. Patient was standing brushing his teeth, developed dizziness and end up going down to the floor. His heard a thud, found him unresponsive for roughly 15 seconds then started coming back to normal. Ambulance arrived, tried to stand up got dizzy again. EMT told him that his blood pressure was low. Currently patient is asymptomatic as long as lying down bed. He denies any fever, chills, nausea, vomiting, headache, neck pain, back pain, abdominal pain or chest pain or shortness of breath. 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 Currently on chemotherapy. Have iron infusion recently because of severe anem ia. Related Data Home Medications Medication Instructions Recorded Confirmed loratadine 10 mg tablet (Claritin) 10 mg PO DAILY 02/15/19 01/24/24 potassium chloride 20 mEq 20 meq PO DAILY 01/22/24 01/24/24 tablet,extended release Allergies Allergy/AdvReac Type Severity Reaction Status Date / Time No Known Allergies Allergy Verified 02/03/24 09:50 Review of Systems Review of Systems: All systems reviewed & are unremarkable except as noted in HPI and below PMFSH Past Medical History Medical History Anxiety disorder Diabetes mellitus type 2 in nonobese GERD (gastroesophageal reflux disease) Hyperlipidemia Hypertension Impaired glucose tolerance (oral) Mass of esophagus Surgical History Surgical History (Updated 02/03/24 @ 13:23 by Adele Castillo APRN) History of cataract extraction Family History Family History Father Patient's father is in good health, Onset Age: 89 Mother Acute myocardial infarction, Onset Age: 67 Family history of diabetes mellitus in first degree relative Patient's mother is Other Family history of elevated blood lipids Social History Social History Smoking packs per day: 1.5 Smoking cigarettes per day: 30.0 Years smoked: 45 Smoking pack-years: 67.50 Smoking status: Former smoker Tobacco type: cigarettes Second hand tobacco smoke exposure: No Smoking end date: 04/03/10 Alcohol intake: current Alcohol use details: Social Substance use: never Substance use type: does not use Living arrangements: with family Additional living arrangements comments: Spiritual care concerns: No Exam Narrative: General appearance: Well-developed, well-nourished Skin: Pale Head: Normocephalic, nontraumatic Eyes: Clear conjunctiva ENT: Oropharynx normal, ears normal, nose normal Neck: Supple, nontender Chest and respiratory: Airway patent, no respiratory distress, no accessory muscle use Heart: Regular rate/rhythm Abdomen: Soft, nontender, no organomegaly, quiet bowel sounds Vascular: Normal peripheral pulses, normal capillary refill. Musculoskeletal: Normal range of motion, nontender back Neurologic: Alert and oriented ?3, [employer] is normal as tested, no gross motor deficit Course Consultations Consultation #1: DR ASHWIN CRUZ Date: 02/03/24 Time: 13:23 Vital Signs Vital signs: Vital Signs Temperature 37.4 C 02/03/24 09:44 Pulse Rate 64 02/03/24 09:44 Respiratory Rate 18 02/03/24 09:44 Blood Pressure 121/61 02/03/24 09:44 Pulse Oximetry 100 02/03/24 09:44 Oxygen Delivery Room Air 02/03/24 09:44 Temperature 37.4 C 02/03/24 09:44 Pulse Rate 89 02/03/24 12:03 Respiratory Rate 14 02/03/24 11:01 Blood Pressure 112/65 02/03/24 12:03 Pulse Oximetry 100 02/03/24 11:01 Oxygen Delivery Room Air 02/03/24 09:44 MDM - Syncope MDM Narrative Medical decision making narrative: patient presents with syncope while standing Vital signs are stable Physical examination showing ill looking patient, pale skin, Differential diagnosis include orthostatic hypotension, electrolyte imbalance, dehydration, urinary tract infection, pneumonia, brain Mets. Blood workup today showed WBC of 0.5, hemoglobin 7.8, platelet 111, sodium 133, Patient tested negative for COVID, flu and RSV, CT head without contrast showed no acute abnormalities Chest x-ray showed no acute abnormalities Vancomycin and cefepime in IV 1 does given, discussed with the oncologist Admit observation to hospitalist, diagnosis neutropenia, anemia, thrombocytopenia, syncope Differential Diagnosis Differential diagnosis: Likely other (As above) Medical Records Attestation: I reviewed the patient's medical records. Lab Data Attestation: I reviewed the patient's lab results. 02/03/24 10:37 02/03/24 10:37 Labs: Lab Results 02/03/24 02/03/24 02/03/24 Range/Units 10:37 11:11 12:18 WBC 0.5 L* (4.5-10.0) K/mm3 RBC 2.77 L (4.6-6.20) M/mm3 Hgb 7.8 L (14.0-18.0) g/dL Hct 24.5 L (42.0-52.0) % MCV 88.4 (80-100) fl MCH 28.2 (26-34) pg MCHC 31.8 L (32-36) g/dl RDW 14.3 (11.5-14.5) % Plt Count 111 L D (150-375) k/mm3 MPV 8.8 (7.4-10.4) fl Immature Gran % (Auto) 0.0 (0-0.5) % Neut % (Auto) 13.1 L (45.5-73.1) % Lymph % (Auto) 65.2 H (18.3-44.2) % [place] % (Auto) 15.2 H (2.6-8.5) % Eos % (Auto) 4.3 (0-4.4) % Baso % (Auto) 2.2 H (0.2-1.2) % Lymph # (Auto) 0.30 L (0.9-3.2) K/mm3 [place] # (Auto) 0.1 (0.1-0.6) K/mm3 Eos # (Auto) 0.0 (0-0.3) K/mm3 Baso # (Auto) 0.0 (0.0-0.1) K/mm3 Abs Immat Gran (auto) 0.00 (0.00-0.031) K/mm3 Absolute Neuts (auto) 0.1 L (1.3-6.7) K/mm3 Absolute Nucleated RBC 0.000 (0.0-0.012) K/mm3 Nucleated RBC % 0.0 (0.0-0.2) % % Immature Plt Fraction 0.9 (0.9-11.2) % PT 14.2 (11.1-14.7) Seconds INR 1.1 APTT 29.5 (22.3-36.8) Seconds Sodium 133 L (137-145) mmol/L Potassium 3.4 (3.4-5.0) mmol/L Chloride 100 (98-107) mmol/L Carbon Dioxide 26 (22-30) mmol/L Anion Gap 7 (4-12) mmol/L BUN 8 L (9-20) mg/dL Creatinine 0.70 (0.7-1.3) mg/dL Estim Creat Clear Calc 77 ml/min Estimated GFR > 60 (59 - ) Glucose 108 (65-110) mg/dL Lactic Acid 1.3 (0.7-2.0) mmol/L Calcium 8.4 (8.4-10.2) mg/dL Total Bilirubin 0.4 (0.2-1.3) mg/dL AST 21 (17-59) U/L ALT 20 (6-50) U/L Alkaline Phosphatase 68 (38-126) U/L Total Creatine Kinase < 20 L (55-170) U/L Total Protein 7.0 (6.3-8.2) g/dL Albumin 3.3 L (3.5-5.1) g/dL Urine Color Yellow (Yellow) Urine Appearance Clear (Clear) Urine pH 7.0 (5.0-9.0) Ur Specific [place] 1.014 (1.001-1.035) Urine Protein Trace (Negative) mg/dL Urine Glucose (UA) Negative (Negative) mg/dL Urine Ketones Negative (Negative) mg/dL Ur Blood (Man) Negative (Negative) Urine Nitrate Negative (Negative) Urine Bilirubin Negative (Negative) Urine Urobilinogen 1.0 (<2.0) mg/dL Leukocyte Esterase Rfl Negative (Negative) ARIANA/UL Urine RBC 3-5 H (0-2) /hpf Urine WBC 0-5 (0-3) /hpf Ur Squamous Epith Cells None seen (Few) /hpf Urine Bacteria None seen /hpf Urine Casts 0-2 Influenza A (RT-PCR) Negative (Negative) Influenza B (RT-PCR) Negative (Negative) RSV (RT-PCR) Negative (Negative) SARS-CoV-2 RNA (RT-PCR) Negative (Negative) Imaging Data Radiologist's impression: Impressions Chest X-Ray 02/03/24 10:11 IMPRESSION: 1. Small left pleural effusion with associated atelectasis versus less likely pneumonia. Head CT 02/03/24 11:06 IMPRESSION: 1. Normal aging brain. No acute intracranial process. 2. Fluid/mucus nearly filling the right sphenoid sinus which can be seen with acute sinusitis ECG Data EKG #1: Attestation: I personally reviewed and interpreted this ECG as follows: ECG completion date: 02/03/24 Interpretation: normal sinus rhythm at 63 beats per minute, normal EKG, no previous EKG available for comparison Discharge Plan Discharge Clinical Impression: Syncope, Anemia, Neutropenia, Thrombocytopenia Patient Disposition: Still a Patient Condition: Stable Additional Instructions: admit to hospitalist Prescriptions: No Action potassium chloride 20 mEq Tablet Extended Release 20 meq PO DAILY omeprazole 40 mg capsule,delayed release(DR/EC) 40 mg PO DAILY Qty: 90 0RF loratadine [Claritin] 10 mg tablet 10 mg PO DAILY atorvastatin 40 mg tablet See Rx Instructions .ROUTE .COMPLEX Qty: 90 0RF Dose Instruction: TAKE 1 TABLET BY MOUTH DAILY Rx Instructions: TAKE 1 TABLET BY MOUTH DAILY pantoprazole 40 mg tablet,delayed release (DR/EC) See Rx Instructions .ROUTE .COMPLEX Qty: 180 1RF Dose Instruction: TAKE 1 TABLET BY MOUTH TWICE DAILY Rx Instructions: TAKE 1 TABLET BY MOUTH TWICE DAILY lorazepam [Ativan] 0.5 mg tablet 0.5 mg PO BID PRN (Reason: anxiety) Qty: 90 0RF Follow-up/Referrals: Daisy Christine APRN [Primary Care Provider] -
[2024-02-03 10:45] LABS: Basophils Percent Auto 2.2 % (0.2-1.2); Eosinophils Percent Auto 4.3 % (0-4.4); Hematocrit 24.5 % (42.0-52.0); Hemoglobin 7.8 g/dL (14.0-18.0); Immature Platelet Fraction Pct 0.9 % (0.9-11.2); Lymphocytes Percent Auto 65.2 % (18.3-44.2); Mean Corpuscular HGB Conc 31.8 g/dl (32-36); Mean Corpuscular Hemoglobin 28.2 pg (26-34); Mean Corpuscular Volume 88.4 fl (80-100); Mean Platelet Volume 8.8 fl (7.4-10.4); Monocytes Absolute Auto 0.1 K/mm3 (0.1-0.6); Monocytes Percent Auto 15.2 % (2.6-8.5); Neutrophils Absolute Auto 0.1 K/mm3 (1.3-6.7); Neutrophils Percent Auto 13.1 % (45.5-73.1); Platelet Count Result 111 k/mm3 (150-375); Red Blood Count 2.77 M/mm3 (4.6-6.20); Red Cell Distribution Width 14.3 % (11.5-14.5)
[2024-02-03 10:56] LABS: Creatine Kinase < 20 U/L (55-170)
[2024-02-03 10:57] LABS: INR 1.1; Lactic Acid Reflex 1.3 mmol/L (0.7-2.0); Partial Thromboplastin Time 29.5 Seconds (22.3-36.8); Prothrombin Time 14.2 Seconds (11.1-14.7)
[2024-02-03 11:05] LABS: White Blood Count 0.5 K/mm3 (4.5-10.0)
[2024-02-03 11:08] LABS: Alanine Aminotransferase 20 U/L (6-50); Albumin Level 3.3 g/dL (3.5-5.1); Alkaline Phosphatase 68 U/L (38-126); Anion Gap 7 mmol/L (4-12); Aspartate Amino Transferase 21 U/L (17-59); Bilirubin,Total 0.4 mg/dL (0.2-1.3); Blood Urea Nitrogen 8 mg/dL (9-20); Calcium 8.4 mg/dL (8.4-10.2); Carbon Dioxide 26 mmol/L (22-30); Chloride 100 mmol/L (98-107); Estimated CRCL calculation 77 ml/min; Estimated Glomerular Filt Rate > 60; Glucose 108 mg/dL (65-110); Potassium 3.4 mmol/L (3.4-5.0); Sodium 133 mmol/L (137-145)
[2024-02-03 11:19] LABS: Add Urine Microscopic? YES; Appearance Urine Clear (Clear); Bacteria Urine None Seen /hpf; Bilirubin Urine Negative (Negative); Blood Urine Negative (Negative); Color Urine Yellow (Yellow); Glucose Urine UA Negative (Negative); Ketones Urine Negative (Negative); Leukocyte Esterase Ur Negative LEU/UL (Negative); Nitrate Urine Negative (Negative); Non Pathogenic Casts 0-2; Protein Urine Trace mg/dL (Negative); Specific Grav Ur 1.014 (1.001-1.035); Squamous Epithelial Cell Urine None Seen /hpf (Few); WBC Urine 0-5 /hpf (0-3)
[2024-02-03] MEDS: SODIUM CHLORIDE 0.9% IV 1,000 ML 999 ML IV CONT (12:36)
[2024-02-03 13:04] LABS: Influenza A QL RT-PCR Negative (Negative); Influenza B QL RT-PCR Negative (Negative); RSV RNA, RT-PCR Negative (Negative); SARS-CoV-2 RNA PCR Negative (Negative)
--- NOTE | 2024-02-03 13:16 | PM.IMHP ---
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 The patient presents here from home via EMS for further evaluation post-syncopal event. The patient reports he had a syncopal event this morning at 09:00 while he was brushing his teeth. He reports he had mild dizziness prior to event. No previous episodes of dizziness prior to today. Reporting he was asymptomatic post-event. This prompted the patient to call 911. Upon EMS arrival the patient was found to be orthostatic positive and had a near-syncopal event after he stood up with EMS but did not lose consciousness. The patient was administered fluids by EMS and arrived 121/61. The patient was administered a 1L bolus and orthostatics were negative when it was checked later in his ED assessment and he denied dizziness during the VS. 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 He also had several liver lesions measuring up to 13 mm in size and has previously had a minimal bilateral pleural effusion. He is currently undergoing treatment (chemotherapy only with last tx on 01/23) and sees Halie ARNOLD for his Oncology care. Last PET scan on 12/22/2023 which showed wall thickening and prominent increased FDG uptake at the distal third of the esophagus consistent with reported primary esophageal cancer with FDG avid metastatic lymphadenopathy at the lower neck, mediastinum and upper abdomen along with 4 FDG avid avid liver lesions also consistent with metastatic disease. Brain MRI on 12/24/2023 showed no evidence of metastatic disease. Initial VS at presentation: 99.4? F, HR 64, R 18, 121/61, and 100% on RA. ED workup showed: WBC 0.5, hemoglobin 7.8 (previously 9.6 on 01/22/2024), platelet count 111, normal coags, sodium 133, creatinine 0.7 and GFR >60, negative CK, and UA showed 3-5 RBC. Viral PCR negative. CXR showed small left pleural effusion with associated atelectasis versus less likely pneumonia. CT head showed normal aging brain, no acute intracranial process, and fluid/mucus nearly filling the right sphenoid sinus which can be seen with acute sinusitis. Review of Systems Review of Systems: All systems reviewed & are unremarkable except as noted in HPI and below PMFSH Past Medical History Medical History Anxiety disorder Arthritis BPH (benign prostatic hyperplasia) Diabetes type 2, controlled Esophageal dysphagia GERD (gastroesophageal reflux disease) Hypertension HUGO (iron deficiency anemia) Impaired glucose tolerance (oral) Mass of esophagus DORIS (obstructive sleep apnea) on CPAP Shingles Small cell lung cancer Surgical History Surgical History History of cataract extraction Family History Family History Father Patient's father is in good health, Onset Age: 89 Mother Acute myocardial infarction, Onset Age: 67 Family history of diabetes mellitus in first degree relative Patient's mother is Other Family history of elevated blood lipids Social History Social History Smoking packs per day: 1.5 Smoking cigarettes per day: 30.0 Years smoked: 45 Smoking pack-years: 67.50 Smoking status: Former smoker Tobacco type: cigarettes Second hand tobacco smoke exposure: No Smoking end date: 04/03/10 Alcohol intake: current Alcohol use details: Social Substance use: never Substance use type: does not use Living arrangements: with family Additional living arrangements comments: Spiritual care concerns: No Meds Home Medications and Allergies Home Medications Medication Instructions Recorded Confirmed Type potassium chloride 20 mEq 10 meq PO BID 01/22/24 02/03/24 History tablet,extended release lorazepam 0.5 mg tablet (Ativan) 0.5 mg PO BID PRN anxiety #90 tabs 01/30/24 02/03/24 Rx pantoprazole 40 mg tablet,delayed 40 mg PO BID 02/03/24 02/03/24 History release Allergies Allergy/AdvReac Type Severity Reaction Status Date / Time No Known Allergies Allergy Verified 02/03/24 09:50 Vital Signs Vital Signs - 24 hr 02/03/24 09:44 02/03/24 09:55 02/03/24 10:26 Temperature 99.4 F Pulse Rate 64 65 66 Respiratory Rate 18 11 L 12 Blood Pressure 121/61 Pulse Oximetry 100 100 100 Oxygen Delivery Room Air 02/03/24 10:36 02/03/24 10:40 02/03/24 10:45 Temperature Pulse Rate 71 66 Respiratory Rate 21 H 12 Blood Pressure 114/60 Pulse Oximetry 98 100 99 Oxygen Delivery 02/03/24 10:46 02/03/24 11:00 02/03/24 11:01 Temperature Pulse Rate 66 65 64 Respiratory Rate 13 14 14 Blood Pressure 118/47 L 128/57 L Pulse Oximetry 100 100 100 Oxygen Delivery 02/03/24 12:01 02/03/24 12:01 02/03/24 12:03 Temperature Pulse Rate 66 78 89 Respiratory Rate Blood Pressure 118/66 118/67 112/65 Pulse Oximetry Oxygen Delivery Exam Const: General: comfortable and no acute distress Other: , male, elderly, nontoxic appearance HENMT: Face/Nose/Sinus: Normal nares present Mouth: Yes moist mucous membranes Eyes: General: appearance normal, both eyes and all related structures Sclera: sclerae normal Pupils: Equal, round and reactive pupils present EOM: EOMs intact bilaterally Chest: Other: port 2 right-side of chest, accessed. Resp: Effort & Inspection: normal respiratory effort Auscultation: clear to auscultation bilaterally Cardio: Rate: regular rate Rhythm: regular rhythm Other: S1-S2 present without murmur, rub, ectopy Skin: General skin exam: normal color and no rashes or lesions noted Wounds: no wounds Neuro: Speech: normal speech Motor exam (neuro): 5/5 motor strength present throughout Sensory Exam: normal sensation Other: A&O x4 Extrem: General: normal to inspection Psych: Mental Status: mental status grossly normal Affect: normal affect Other: good insight and judgment, pleasant H&P: Results Labs Labs: Short CBC 02/03/24 Range/Units 10:37 WBC 0.5 L* (4.5-10.0) K/mm3 Hgb 7.8 L (14.0-18.0) g/dL Hct 24.5 L (42.0-52.0) % Plt Count 111 L D (150-375) k/mm3 BMP 02/03/24 10:37 Sodium 133 L Potassium 3.4 Chloride 100 Carbon Dioxide 26 BUN 8 L Creatinine 0.70 Glucose 108 Calcium 8.4 Cardiac Enzymes 11/02/24 Range/Units 10:37 Total Creatine Kinase < 20 L (55-170) U/L Liver Function 02/03/24 Range/Units 10:37 Total Bilirubin 0.4 (0.2-1.3) mg/dL AST 21 (17-59) U/L ALT 20 (6-50) U/L Alkaline Phosphatase 68 (38-126) U/L Albumin 3.3 L (3.5-5.1) g/dL Urine 02/03/24 Range/Units 11:11 Urine Color Yellow (Yellow) Urine Appearance Clear (Clear) Urine pH 7.0 (5.0-9.0) Ur Specific [place] 1.014 (1.001-1.035) Urine Protein Trace (Negative) mg/dL Urine Glucose (UA) Negative (Negative) mg/dL Assessment and Plan Assessment and plan (1) Syncope: Qualifiers: Syncope type: unspecified Qualified Code(s): R55 - Syncope and collapse Code(s): R55 - Syncope and collapse Status: Acute Assessment and Plan: - EKG, initial: Sinus rhythm, baseline artifact, normal EKG. - CXR: Small left pleural effusion with associated atelectasis versus less likely pneumonia. - Troponin x2 ordered - UA negative for infection, viral PCR negative - orthostatic vital signs negative post IV fluids, trend Q shift - suspect dehydration causing orthostatic hypotension, continue IV fluids - consider brain MRI if change in patient condition, will defer further imaging to Oncology team given recent PET scan and brain MRI which showed no evidence of brain mets. (2) Neutropenia: Qualifiers: Neutropenia type: secondary to cancer chemotherapy Qualified Code(s): D70.1 - Agranulocytosis secondary to cancer chemotherapy; T45.1X5A - Adverse effect of antineoplastic and immunosuppressive drugs, initial encounter Code(s): D70.9 - Neutropenia, unspecified Status: Acute Assessment and Plan: - WBC 0.5, HGB 7.8, platelet count 111. Absolute neutrophils 0.1. - currently undergoing treatment for small cell lung cancer metastasis to the esophagus - reverse isolation - oncology consulted, awaiting formal recs. Per discussion between the ED provider and on-call oncologist, administer 1 dose of vancomycin and cefepime and observe overnight. Monitor blood pressure. - blood cultures obtained, follow - MRSA pending - monitor temp in BP (3) Anemia: Qualifiers: Anemia type: unspecified type Qualified Code(s): D64.9 - Anemia, unspecified Code(s): D64.9 - Anemia, unspecified Status: Chronic Assessment and Plan: - Hgb 7.8, previously 9.6 on 01/22/2024 - previous history of HUGO, currently undergoing chemotherapy with subsequent pancytopenia/neutropenia - transfuse if less than 7 - monitor (4) Diabetes type 2, controlled: Qualifiers: Diabetes mellitus complication status: without complication Diabetes mellitus computer terminal operator insulin use: without computer terminal operator use Qualified Code(s): E11.9 - Type 2 diabetes mellitus without complications Code(s): E11.9 - Type 2 diabetes mellitus without complications Status: Chronic Assessment and Plan: - hypoglycemia protocol - POC blood glucose ACHS - no home medications - correct regimen ordered - low dose TIDWM, based off TDD - A1C 6.4% on 09/06/2023, update (5) DORIS (obstructive sleep apnea): Code(s): G47.33 - Obstructive sleep apnea (adult) (pediatric) Status: Acute Assessment and Plan: - continue CPAP Plan Diet: Regular GI Prophylaxis: Not currently indicated DVT Prophylaxis: SCDs Lines: Peripheral Code Status: Full code Quality VTE Prophylaxis VTE prophylaxis: mechanical ordered Hospitalist MIPS Advance Care Plan I have confirmed that the patient's Advanced Care Plan is present, code status is documented, or surrogate decision maker is listed in patient medical record.: Yes Medication Reconciliation I have utilized all available resources to obtain, update and review the patients current medications (includes all prescriptions, OTC, herbals, cannabis, and nutritional supplements).: Yes
[2024-02-03] MEDS: CEFEPIME 2 GM/NS 50 ML 2 GM/50 ML BAG IVPB (13:34)
[2024-02-03] MEDS: VANCOMYCIN 2,000 MG/NS 500 ML 2,000 MG/500 ML BAG 250 MG IVPB (14:05)
[2024-02-03 14:08] LABS: Troponin I < 0.012 ng/mL (0.000-0.034)
[2024-02-03 14:45] LABS: MRSA (PCR) NOT DETECTED (NOT DETECTE)
--- NOTE | 2024-02-03 16:20 | PC.NURSE ---
This patient, Karthik Ordonez, was admitted to Medical Room 249-01. Patient/family oriented to hospital policies and general routines including ID bracelet, bed and alarms, visiting hours, pain management, procedures, bathroom and other care routines, personal items, smoking policy, room service/diet, and visiting hours. Information on how to activate the Rapid Response Team has been discussed. Patient/Family are encouraged to report perceived risks to care and to ask questions if they do not understand what they are told or what they should do.
[2024-02-03] MEDS: CENTRAL LINE FLUSH 10 ML IV PUSH ×2 (16:26→20:41)
[2024-02-03 17:18] LABS: Glucose Point of Care 116 mg/dl (65-105)
[2024-02-03 19:04] LABS: Troponin I < 0.012 ng/mL (0.000-0.034)
[2024-02-03 20:23] LABS: Glucose Point of Care 111 mg/dl (65-105)
[2024-02-03] MEDS: PANTOPRAZOLE 40 MG TABLET PO (20:41)
[2024-02-04] VITALS (8 sets, daily range): BP systolic 100–148; BP diastolic 56–72; PULSE 67–78; RESP 16–18; TEMP 36.6–37.7; O2SAT 97–99
--- NOTE | 2024-02-04 01:01 | PC.NURSE ---
Daylight Savings Time For Daylight Savings Time Ending in the Fall - Clocks are moved back. For Daylight Savings Time Beginning in the Spring - Clocks are moved ahead. For [facility], the time of change occurs at 0200 hrs. Time is taken from the dining room server. This entry on the patient's chart recognizes the change in time reflected during documentation. Example: 2 entries for vital signs may be charted for 0200 hrs.
[2024-02-04] MEDS: CENTRAL LINE FLUSH 10 ML IV PUSH ×3 (05:28→21:25)
[2024-02-04 05:58] LABS: Basophils Percent Auto 3.1 % (0.2-1.2); Eosinophils Percent Auto 4.6 % (0-4.4); Hematocrit 22.7 % (42.0-52.0); Hemoglobin 7.1 g/dL (14.0-18.0); Immature Platelet Fraction Pct 0.9 % (0.9-11.2); Lymphocytes Percent Auto 61.5 % (18.3-44.2); Mean Corpuscular HGB Conc 31.3 g/dl (32-36); Mean Corpuscular Hemoglobin 27.5 pg (26-34); Mean Platelet Volume 8.9 fl (7.4-10.4); Monocytes Absolute Auto 0.2 K/mm3 (0.1-0.6); Monocytes Percent Auto 24.6 % (2.6-8.5); Neutrophils Percent Auto 6.2 % (45.5-73.1); Platelet Count Result 114 k/mm3 (150-375); Red Blood Count 2.58 M/mm3 (4.6-6.20); Red Cell Distribution Width 14.2 % (11.5-14.5)
[2024-02-04 06:03] LABS: Hemoglobin A1C 5.8 % (<5.7); White Blood Count 0.7 K/mm3 (4.5-10.0)
[2024-02-04 06:06] LABS: Anion Gap 6 mmol/L (4-12); Blood Urea Nitrogen 7 mg/dL (9-20); Calcium 7.9 mg/dL (8.4-10.2); Carbon Dioxide 27 mmol/L (22-30); Chloride 103 mmol/L (98-107); Estimated CRCL calculation 77 ml/min; Estimated Glomerular Filt Rate > 60; Glucose 102 mg/dL (65-110); Potassium 3.2 mmol/L (3.4-5.0); Sodium 136 mmol/L (137-145)
[2024-02-04 06:34] LABS: Platelet Estimate Slightly Decreased (Adequate)
[2024-02-04 06:35] LABS: Hypochromasia 1+; Schistocytes None Seen
--- NOTE | 2024-02-04 07:45 | PM.IMPN ---
Progress Note: A&P Assessment and Plan (1) Syncope: Qualifiers: Syncope type: unspecified Qualified Code(s): R55 - Syncope and collapse Code(s): R55 - Syncope and collapse Status: Acute Assessment and Plan: Possible etiology dehydration causing orthostatic hypotension vs anemia vs infection vs other - Hgb 7.1 on am labs, given epogen 10,000 units subq x1 - EKG, initial: Sinus rhythm, baseline artifact, normal EKG. - CXR: Small left pleural effusion with associated atelectasis versus less likely pneumonia. - Chest CT ordered to further rule out an underlying pneumonia - Troponin x2 negative - UA negative for infection - Viral PCR negative - orthostatic vital signs remain positive post IV fluid bolus in the ED, started on maintenance fluids. Will trend Q shift. May need midodrine. (2) Neutropenia: Qualifiers: Neutropenia type: secondary to cancer chemotherapy Qualified Code(s): D70.1 - Agranulocytosis secondary to cancer chemotherapy; T45.1X5A - Adverse effect of antineoplastic and immunosuppressive drugs, initial encounter Code(s): D70.9 - Neutropenia, unspecified Status: Acute Assessment and Plan: WBC 0.5, HGB 7.8, platelet count 111. 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 - Chest CT ordered to further rule out an underlying pneumonia - monitor temp in BP - reverse isolation - oncology consulted, awaiting formal recs. Per discussion between the ED provider and on-call oncologist, administer 1 dose of vancomycin and cefepime and observe overnight. Monitor blood pressure. (3) Anemia: Qualifiers: Anemia type: unspecified type Qualified Code(s): D64.9 - Anemia, unspecified Code(s): D64.9 - Anemia, unspecified Status: Chronic Assessment and Plan: Hgb 7.8 on admission , previously 9.6 on 01/22/2024. Denies hematuria, hematemesis, hematochezia, melena. No signs of active bleeding. - Hgb 7.1 on am labs, possible dilution however given epogen 10,000 units subq x1 due to known pancytopenia - previous history of HUGO, currently undergoing chemotherapy with subsequent pancytopenia/neutropenia - transfuse if less than 7 - monitor (4) Diabetes type 2, controlled: Qualifiers: Diabetes mellitus complication status: without complication Diabetes mellitus termite control service representative insulin use: without termite control service representative use Qualified Code(s): E11.9 - Type 2 diabetes mellitus without complications Code(s): E11.9 - Type 2 diabetes mellitus without complications Status: Chronic Assessment and Plan: - hypoglycemia protocol - POC blood glucose ACHS - no home medications - correct regimen ordered - low dose TIDWM, based off TDD - A1C 6.4% on 09/06/2023, update (5) DORIS (obstructive sleep apnea): Code(s): G47.33 - Obstructive sleep apnea (adult) (pediatric) Status: Acute Assessment and Plan: - continue CPAP Plan Diet: Regular GI Prophylaxis: Not currently indicated DVT Prophylaxis: SCDs Lines: Peripheral Code Status: Full code Time Spent With Patient Time with patient: 25 - 35 minutes Subjective Date/time seen: 02/04/24 07:45 Interval history: 73 y/o M presents here with syncope with PMH of diabetes, GERD, HLD, HTN, and lung cancer with metastasis to the esophagus (currently undergoing treatment). Patient is pleasant sitting up comfortably in his bed with at bedside. He has no complaints at this time denying chest pain, shortness a breath, palpitations, nausea / vomiting and abdominal pain. He states that he has not been around any sick contacts. He endorses occasional cough, however notes that this regularly happens with the weather change. Review of Systems Review of Systems: All systems reviewed & are unremarkable except as noted in HPI and below Exam Narrative: AF HR 67 RR 16 SPO2 99 BP 111/61 General: male in no acute respiratory distress who is nontoxic appearing, lying semi recumbent in bed. HEENT: Normocephalic. Atraumatic. Extraocular movement intact. Sclera clear and anicteric. No facial asymmetry. Chest: Lungs are clear but diminished to auscultation bilaterally. No wheezes or crackles. CV: Heart was regular rate and rhythm. S1/S2. No murmurs, gallops, or rubs. Abd: Abdomen was soft. Nontender. Nondistended. Positive bowel sounds. No organomegaly or masses. Ext: No clubbing, cyanosis, or edema. 2+ DP pulses bilaterally. Neuro: Patient is alert and oriented x4. Cranial nerves 2-12 are intact. Speech is clear. Objective Data Vital Signs Vital Signs: Vital Signs - 24 hr 02/03/24 09:44 02/03/24 09:55 02/03/24 10:26 Temperature 99.4 F Pulse Rate 64 65 66 Respiratory Rate 18 11 L 12 Blood Pressure 121/61 Pulse Oximetry 100 100 100 Oxygen Delivery Room Air 02/03/24 10:36 02/03/24 10:40 02/03/24 10:45 Temperature Pulse Rate 71 66 Respiratory Rate 21 H 12 Blood Pressure 114/60 Pulse Oximetry 98 100 99 Oxygen Delivery 02/03/24 10:46 02/03/24 11:00 02/03/24 11:01 Temperature Pulse Rate 66 65 64 Respiratory Rate 13 14 14 Blood Pressure 118/47 L 128/57 L Pulse Oximetry 100 100 100 Oxygen Delivery 02/03/24 12:01 02/03/24 12:01 02/03/24 12:03 Temperature Pulse Rate 66 78 89 Respiratory Rate Blood Pressure 118/66 118/67 112/65 Pulse Oximetry Oxygen Delivery 02/03/24 14:12 02/03/24 11:02 02/03/24 11:15 Temperature Pulse Rate 68 62 63 Respiratory Rate 16 17 13 Blood Pressure 134/68 Pulse Oximetry 100 100 Oxygen Delivery 02/03/24 11:16 02/03/24 11:30 02/03/24 11:31 Temperature Pulse Rate 63 64 63 Respiratory Rate 14 15 13 Blood Pressure 128/61 116/63 Pulse Oximetry 100 Oxygen Delivery 02/03/24 11:52 02/03/24 12:00 02/03/24 12:01 Temperature Pulse Rate 66 86 66 Respiratory Rate 14 21 H 15 Blood Pressure 118/66 Pulse Oximetry Oxygen Delivery 02/03/24 12:03 02/03/24 12:04 02/03/24 12:32 Temperature Pulse Rate 81 90 67 Respiratory Rate 18 28 H 14 Blood Pressure 118/67 112/65 Pulse Oximetry 98 Oxygen Delivery 02/03/24 12:48 02/03/24 13:15 02/03/24 13:16 Temperature Pulse Rate 67 68 66 Respiratory Rate 19 15 14 Blood Pressure 118/71 Pulse Oximetry 99 99 100 Oxygen Delivery 02/03/24 13:44 02/03/24 13:45 02/03/24 13:46 Temperature Pulse Rate 69 68 66 Respiratory Rate 13 13 13 Blood Pressure 136/57 L Pulse Oximetry 99 98 95 Oxygen Delivery 02/03/24 14:00 02/03/24 14:01 02/03/24 14:30 Temperature 98.9 F Pulse Rate 71 68 66 Respiratory Rate 15 15 16 Blood Pressure 134/68 126/55 L Pulse Oximetry 96 98 100 Oxygen Delivery 02/03/24 20:00 02/03/24 20:00 02/03/24 22:00 Temperature 98.9 F 99.6 F Pulse Rate 66 66 78 Respiratory Rate 16 16 18 Blood Pressure 126/55 L 136/60 Pulse Oximetry 100 100 96 Oxygen Delivery Room Air 02/03/24 22:05 02/03/24 22:10 02/04/24 00:00 Temperature 98.3 F Pulse Rate 68 Respiratory Rate 18 Blood Pressure 127/58 L 107/48 L 124/58 L Pulse Oximetry 98 Oxygen Delivery 02/04/24 06:00 Temperature 98.7 F Pulse Rate 69 Respiratory Rate 18 Blood Pressure 135/62 Pulse Oximetry 98 Oxygen Delivery Intake/Output Intake/Output: Intake & Output 02/01/24 02/02/24 02/03/24 02/04/24 23:59 23:59 23:59 22:59 Intake Total 1550 475 Output Total 600 Balance 1550 -125 Meds/Results Medications: Active Medications Generic Name Dose Route Start Last Admin Trade Name Freq PRN Reason Stop Dose Admin Acetaminophen 650 mg 02/03/24 13:12 Acetaminophen 325 Mg Tablet PO Q4H PRN Mild Pain (1-3) or Fever Dextrose 12.5 gm 02/03/24 13:29 Dextrose 50% 25 Gm/50 Ml Syringe IV PUSH PRN PRN Hypoglycemia Protocol Glucagon 1 mg 02/03/24 13:29 Glucagon For Inj 1 Mg Vial IM PRN PRN Hypoglycemia Protocol Glucose 15 gm 02/03/24 13:29 Glucose Oral Gel 15 Gm Of Glucse In 37.5 Gm Tube PO PRN PRN Hypoglycemia Protocol Heparin Sodium (Beef Lung) 50 units 02/04/24 09:00 Heparin Flush 50 Units/5 Ml Syringe IV PUSH [facility] Heparin Sodium (Beef Lung) 50 units 02/03/24 11:04 Heparin Flush 50 Units/5 Ml Syringe IV PUSH PRN PRN after intermittent infusion Heparin Sodium (Beef Lung) 50 units 02/03/24 11:04 02/04/24 05:29 Heparin Flush 50 Units/5 Ml Syringe IV PUSH 50 units PRN PRN Administration after blood draws Heparin Sodium (Porcine) 500 units 02/03/24 11:04 Heparin Sodium Lock Flush 500 Units/5 Ml Syringe IV PUSH PRN PRN see comments below Vancomycin HCl 1,500 mg in 500 mls @ 250 mls/hr 02/04/24 08:00 Vancomycin 1,500 Mg/Ns 500 Ml IVPB Q18H ROXANN Dextrose 1,000 mls @ 100 mls/hr 02/03/24 13:29 Dextrose 5% 1,000 Ml IVPB PRN PRN Hypoglycemia Protocol Insulin Aspart 2 - 5 units 02/03/24 17:00 02/03/24 17:38 Insulin Aspart (*Bkc) 100 Units/Ml SUB-Q Not Given TIDWM ROXANN Protocol Lorazepam 0.5 mg 02/03/24 16:18 Lorazepam (*Crx) 0.5 Mg Tablet PO BID PRN anxiety Pantoprazole Sodium 40 mg 02/03/24 21:00 02/03/24 20:41 Pantoprazole 40 Mg Tablet PO 40 mg Q12HR ROXANN Administration Polyethylene Glycol 17 gm 02/03/24 15:33 Polyethylene Glycol 3350 17 Gm Powd.Pack PO QAM PRN Constipation Potassium Chloride 10 meq 02/03/24 17:00 02/03/24 17:42 Potassium Chloride 10 Meq Er Tablet PO Not Given BIDWM ROXANN Sodium Chloride 10 ml 02/03/24 14:00 02/04/24 05:28 Central Line Flush IV PUSH 10 ml Q8HR ROXANN Administration Radiology Results: ITS Impressions Chest X-Ray 02/03/24 10:11 IMPRESSION: 1. Small left pleural effusion with associated atelectasis versus less likely pneumonia. Head CT 02/03/24 11:06 IMPRESSION: 1. Normal aging brain. No acute intracranial process. 2. Fluid/mucus nearly filling the right sphenoid sinus which can be seen with acute sinusitis Labs Labs: Laboratory Results - last 24 hr 02/03/24 02/03/24 02/03/24 10:31 10:37 11:11 WBC 0.5 L* RBC 2.77 L Hgb 7.8 L Hct 24.5 L MCV 88.4 MCH 28.2 MCHC 31.8 L RDW 14.3 Plt Count 111 L D MPV 8.8 Immature Gran % (Auto) 0.0 Neut % (Auto) 13.1 L Lymph % (Auto) 65.2 H [place] % (Auto) 15.2 H Eos % (Auto) 4.3 Baso % (Auto) 2.2 H Lymph # (Auto) 0.30 L [place] # (Auto) 0.1 Eos # (Auto) 0.0 Baso # (Auto) 0.0 Abs Immat Gran (auto) 0.00 Absolute Neuts (auto) 0.1 L Absolute Nucleated RBC 0.000 Nucleated RBC % 0.0 Platelet Estimate % Immature Plt Fraction 0.9 Hypochromasia Schistocytes PT 14.2 INR 1.1 APTT 29.5 Sodium 133 L Potassium 3.4 Chloride 100 Carbon Dioxide 26 Anion Gap 7 BUN 8 L Creatinine 0.70 Estim Creat Clear Calc 77 Estimated GFR > 60 Glucose 108 POC Capillary Glucose Hemoglobin A1c Lactic Acid 1.3 Calcium 8.4 Total Bilirubin 0.4 AST 21 ALT 20 Alkaline Phosphatase 68 Total Creatine Kinase < 20 L Troponin I < 0.012 Total Protein 7.0 Albumin 3.3 L Urine Color Yellow Urine Appearance Clear Urine pH 7.0 Ur Specific [place] 1.014 Urine Protein Trace Urine Glucose (UA) Negative Urine Ketones Negative Ur Blood (Man) Negative Urine Nitrate Negative Urine Bilirubin Negative Urine Urobilinogen 1.0 Leukocyte Esterase Rfl Negative Urine RBC 3-5 H Urine WBC 0-5 Ur Squamous Epith Cells None seen Urine Bacteria None seen Urine Casts 0-2 Nasal MRSA (PCR) Influenza A (RT-PCR) Influenza B (RT-PCR) RSV (RT-PCR) SARS-CoV-2 RNA (RT-PCR) 02/03/24 02/03/24 02/03/24 12:18 13:32 17:16 WBC RBC Hgb Hct MCV MCH MCHC RDW Plt Count MPV Immature Gran % (Auto) Neut % (Auto) Lymph % (Auto) [place] % (Auto) Eos % (Auto) Baso % (Auto) Lymph # (Auto) [place] # (Auto) Eos # (Auto) Baso # (Auto) Abs Immat Gran (auto) Absolute Neuts (auto) Absolute Nucleated RBC Nucleated RBC % Platelet Estimate % Immature Plt Fraction Hypochromasia Schistocytes PT INR APTT Sodium Potassium Chloride Carbon Dioxide Anion Gap BUN Creatinine Estim Creat Clear Calc Estimated GFR Glucose POC Capillary Glucose 116 H Hemoglobin A1c Lactic Acid Calcium Total Bilirubin AST ALT Alkaline Phosphatase Total Creatine Kinase Troponin I Total Protein Albumin Urine Color Urine Appearance Urine pH Ur Specific [place] Urine Protein Urine Glucose (UA) Urine Ketones Ur Blood (Man) Urine Nitrate Urine Bilirubin Urine Urobilinogen Leukocyte Esterase Rfl Urine RBC Urine WBC Ur Squamous Epith Cells Urine Bacteria Urine Casts Nasal MRSA (PCR) Not detected Influenza A (RT-PCR) Negative Influenza B (RT-PCR) Negative RSV (RT-PCR) Negative SARS-CoV-2 RNA (RT-PCR) Negative 02/03/24 02/03/24 02/04/24 18:27 20:06 05:27 WBC 0.7 L* RBC 2.58 L Hgb 7.1 L Hct 22.7 L MCV 88.0 MCH 27.5 MCHC 31.3 L RDW 14.2 Plt Count 114 L MPV 8.9 Immature Gran % (Auto) 0.0 Neut % (Auto) 6.2 L Lymph % (Auto) 61.5 H [place] % (Auto) 24.6 H Eos % (Auto) 4.6 H Baso % (Auto) 3.1 H Lymph # (Auto) 0.40 L [place] # (Auto) 0.2 Eos # (Auto) 0.0 Baso # (Auto) 0.0 Abs Immat Gran (auto) 0.00 Absolute Neuts (auto) 0.0 L Absolute Nucleated RBC 0.000 Nucleated RBC % 0.0 Platelet Estimate Slightly decreased % Immature Plt Fraction 0.9 Hypochromasia 1+ Schistocytes None seen PT INR APTT Sodium 136 L Potassium 3.2 L Chloride 103 Carbon Dioxide 27 Anion Gap 6 BUN 7 L Creatinine 0.70 Estim Creat Clear Calc 77 Estimated GFR > 60 Glucose 102 POC Capillary Glucose 111 H Hemoglobin A1c 5.8 H Lactic Acid Calcium 7.9 L Total Bilirubin AST ALT Alkaline Phosphatase Total Creatine Kinase Troponin I < 0.012 Total Protein Albumin Urine Color Urine Appearance Urine pH Ur Specific [place] Urine Protein Urine Glucose (UA) Urine Ketones Ur Blood (Man) Urine Nitrate Urine Bilirubin Urine Urobilinogen Leukocyte Esterase Rfl Urine RBC Urine WBC Ur Squamous Epith Cells Urine Bacteria Urine Casts Nasal MRSA (PCR) Influenza A (RT-PCR) Influenza B (RT-PCR) RSV (RT-PCR) SARS-CoV-2 RNA (RT-PCR) Quality VTE Prophylaxis VTE prophylaxis: mechanical ordered
[2024-02-04 08:18] LABS: Glucose Point of Care 108 mg/dl (65-105)
[2024-02-04] MEDS: PANTOPRAZOLE 40 MG TABLET PO ×2 (08:38→21:24)
[2024-02-04] MEDS: EPOETIN ALFA-EPBX 10,000 UNITS/ML VIAL 10000 UNITS SUB-Q (08:39)
[2024-02-04] MEDS: FILGRASTIM-SNDZ 300 MCG/0.5 ML SYRINGE SUB-Q (10:40)
[2024-02-04] MEDS: POTASSIUM CHLORIDE 20 MEQ PACKET (FOR LIQUID) 40 MEQ PO (10:41)
--- NOTE | 2024-02-04 11:44 | P.CONONC_ITS ---
Recommendations The patient was diagnosed with small cell carcinoma. Patient was having dysphagia since summer 2023 and underwent EGD on 11/22/23 as outpatient. A large friable mass was seen in mid and distal esophagus measuring 9cm in length. Biopsy pathology was consistent with small cell carcinoma. A staging CT chest/abd/pelvis done 11/24/23 showed a mass in the mid and distal esophagus with metastatic lymphadenopathy including mediastinal lymphadenopathy, metastatic epigastric and gastrohepatic lymphadenopathy, and retroperitoneal lymphadenopathy. He also had several liver lesions measuring up to 13 mm in size and has previously had a minimal bilateral pleural effusion. PET scan on 12/22/2023 which showed wall thickening and prominent increased FDG uptake at the distal third of the esophagus consistent with reported primary esophageal cancer with FDG avid metastatic lymphadenopathy at the lower neck, mediastinum and upper abdomen along with 4 FDG avid avid liver lesions also consistent with metastatic disease. Brain MRI on 12/24/2023 showed no evidence of metastatic disease. Patient was seen by Dr. Ambrose and was started on Carboplatin, Etoposide and Atezolizumab 01/22/24-01/24/24. Patient is now hospitalized for orthostasis and syncopal episode. Admission CBC shows WBC of 0.5 and Hemoglobin 7.8g/dL. Blood cultures are pending. Entered orders for 3 days of filgastrim. First dose today 02/04/24. Will continue to monitor WBC and follow. Impression This is a 73 y/o male with- Syncope with Neutropenia [facility] - Date/Time Seen 02/04/24 11:44 - History of Present Illness Mr. 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 Ambrose in [facility]. The patient presented to [facility] from home via EMS for further evaluation post-syncopal event. Patient had a syncopal event at 09:00am on the morning of admission while he was brushing his teeth. He felt mild dizziness prior to event. There was no seizure like activity noted. This prompted the patient to call 911. Upon EMS arrival the patient was found to be orthostatic positive and had a near-syncopal event after he stood up with EMS but did not lose consciousness. The patient was administered fluids by EMS and arrived 121/61. Work up in showed: WBC 0.5, hemoglobin 7.8 (previously 9.6 on 01/22/2024), platelet count 111, normal coags, sodium 133, creatinine 0.7 and GFR >60, negative CK, and UA showed 3-5 RBC. Viral PCR was negative. chest xray showed small left pleural effusion with associated atelectasis versus less likely pneumonia. CT head done 02/03/24 in ER showed normal aging brain, no acute intracranial process, and fluid/mucus nearly filling the right sphenoid sinus which can be seen with acute sinusitis. The patient was diagnosed with small cell carcinoma. Patient was having dysphagia since summer 2023 and underwent EGD on 11/22/23 as outpatient. A large friable mass was seen in mid and distal esophagus measuring 9cm in length. Biopsy pathology was consistent with small cell carcinoma. A staging CT chest/abd/pelvis done 11/24/23 showed a mass in the mid and distal esophagus with metastatic lymphadenopathy including mediastinal lymphadenopathy, metastatic epigastric and gastrohepatic lymphadenopathy, and retroperitoneal lymphadenopathy. He also had several liver lesions measuring up to 13 mm in size and has previously had a minimal bilateral pleural effusion. PET scan on 12/22/2023 which showed wall thickening and prominent increased FDG uptake at the distal third of the esophagus consistent with reported primary esophageal cancer with FDG avid metastatic lymphadenopathy at the lower neck, mediastinum and upper abdomen along with 4 FDG avid avid liver lesions also consistent with metastatic disease. Brain MRI on 12/24/2023 showed no evidence of metastatic disease. Patient was seen by Dr. Ambrose and was started on Carboplatin, Etoposide and Atezolizumab 01/22/24-01/24/24. Patient is now hospitalized for orthostasis and syncopal episode. Admission CBC shows WBC of 0.5 and Hemoglobin 7.8g/dL. Oncology is consulted for neutropenia in the setting of the small cell carcinoma treatment. - Medical History Medical History (Last Reviewed 02/03/24 @ 13:23 by Adele Castillo, ARABELLA) Anxiety disorder Arthritis BPH (benign prostatic hyperplasia) Diabetes type 2, controlled Esophageal dysphagia GERD (gastroesophageal reflux disease) Hypertension HUGO (iron deficiency anemia) Impaired glucose tolerance (oral) Mass of esophagus DORIS (obstructive sleep apnea) on CPAP Shingles Small cell lung cancer - Surgical History Surgical History (Last Reviewed 02/03/24 @ 13:23 by Adele Castillo APRN) History of cataract extraction - Family History Family History (Last Reviewed 02/03/24 @ 13:23 by Adele Castillo APRN) Father Patient's father is in good health, Onset Age: 89 Mother Acute myocardial infarction, Onset Age: 67 Family history of diabetes mellitus in first degree relative Patient's mother is Other Family history of elevated blood lipids - Social History Social History (Last Reviewed 02/03/24 @ 13:23 by Adele Castillo APRN) Alcohol Use: Alcohol intake: former Alcohol use details: Social Substance Use: Substance use: never Substance use type: does not use Others: Spiritual care concerns: No Living Arrangements: Living arrangements: with family Smoking Status: Smoking status: Former smoker Tobacco type: cigarettes Second hand tobacco smoke exposure: No Smoking end date: 04/03/10 Smoking Pack-years: Smoking packs per day: 1.5 Smoking cigarettes per day: 30.0 Years smoked: 45 Smoking pack-years: 67.50 Social Determinants of Health: Do You Feel Safe in your Home?: Yes Has the Lack of Transportation Kept You From Medical Appointments or From Getting Medications?: No Within the Past 12 Months, Were You Worried Whether Your Food Would Run Out Before You Got Money to Buy More?: Never True What is Your Housing Situation Today?: I Have Housing Are You Worried That in the Next 2 Months, You May Not Have Your Own Housing to Live In?: No Do You Have Trouble Paying Your Heating Or Electricity Bill?: No Do You Have Trouble Paying For Medicines?: No Are You Currently Unemployed and Looking for Work?: No Highest Level of Education Completed: High School Diploma/GED Do You Have Trouble With Childcare or the Care of a Family Member?: No - Medications Active Medications Generic Name Dose Route Start Last Admin Trade Name Freq PRN Reason Stop Dose Admin Acetaminophen 650 mg 02/03/24 13:12 Acetaminophen 325 Mg Tablet PO Q4H PRN Mild Pain (1-3) or Fever Dextrose 12.5 gm 02/03/24 13:29 Dextrose 50% 25 Gm/50 Ml Syringe IV PUSH PRN PRN Hypoglycemia Protocol Filgrastim-Sndz 300 mcg 02/04/24 11:00 02/04/24 10:40 Filgrastim-Sndz 300 Mcg/0.5 Ml Syringe SUB-Q 02/07/24 23:59 300 mcg DAILY ROXANN Administration Glucagon 1 mg 02/03/24 13:29 Glucagon For Inj 1 Mg Vial IM PRN PRN Hypoglycemia Protocol Glucose 15 gm 02/03/24 13:29 Glucose Oral Gel 15 Gm Of Glucse In 37.5 Gm Tube PO PRN PRN Hypoglycemia Protocol Heparin Sodium (Beef Lung) 50 units 02/04/24 09:00 02/04/24 08:34 Heparin Flush 50 Units/5 Ml Syringe IV PUSH Not Given QAM ROXANN Heparin Sodium (Beef Lung) 50 units 02/03/24 11:04 Heparin Flush 50 Units/5 Ml Syringe IV PUSH PRN PRN after intermittent infusion Heparin Sodium (Beef Lung) 50 units 02/03/24 11:04 02/04/24 05:29 Heparin Flush 50 Units/5 Ml Syringe IV PUSH 50 units PRN PRN Administration after blood draws Heparin Sodium (Porcine) 500 units 02/03/24 11:04 Heparin Sodium Lock Flush 500 Units/5 Ml Syringe IV PUSH PRN PRN see comments below Dextrose 1,000 mls @ 100 mls/hr 02/03/24 13:29 Dextrose 5% 1,000 Ml IVPB PRN PRN Hypoglycemia Protocol Insulin Aspart 2 - 5 units 02/03/24 17:00 02/04/24 08:33 Insulin Aspart (*Bkc) 100 Units/Ml SUB-Q Not Given TIDWM ROXANN Protocol Lorazepam 0.5 mg 02/03/24 16:18 Lorazepam (*Crx) 0.5 Mg Tablet PO BID PRN anxiety Pantoprazole Sodium 40 mg 02/03/24 21:00 02/04/24 08:38 Pantoprazole 40 Mg Tablet PO 40 mg Q12HR ROXANN Administration Polyethylene Glycol 17 gm 02/03/24 15:33 Polyethylene Glycol 3350 17 Gm Powd.Pack PO QAM PRN Constipation Potassium Chloride 10 meq 02/03/24 17:00 02/04/24 10:07 Potassium Chloride 10 Meq Er Tablet PO Not Given BIDWM ROXANN Sodium Chloride 10 ml 02/03/24 14:00 02/04/24 05:28 Central Line Flush IV PUSH 10 ml Q8HR ROXANN Administration - Allergies Allergies Allergy/AdvReac Type Severity Reaction Status Date / Time No Known Allergies Allergy Verified 02/03/24 16:22 Review of Systems - Constitutional Reports lack of energy, Reports weakness, Reports weight loss - Eyes Comments: normal - ENT Comments: normal - Cardiovascular Comments: no chest pain, dyspnea. - Respiratory Comments: no dyspnea on exertion - Gastrointestinal Comments: No abdominal pain, nausea, vomiting, diarrhea. - Genitourinary Comments: no dysuria - Neurologic Comments: syncope, dizziness Exam - Vital Signs Vital Signs - 24 hr 02/03/24 14:12 02/03/24 12:48 02/03/24 13:15 Temperature Pulse Rate 68 67 68 Respiratory Rate 16 19 15 Blood Pressure 134/68 Pulse Oximetry 100 99 99 Oxygen Delivery 02/03/24 13:16 02/03/24 13:44 02/03/24 13:45 Temperature Pulse Rate 66 69 68 Respiratory Rate 14 13 13 Blood Pressure 118/71 Pulse Oximetry 100 99 98 Oxygen Delivery 02/03/24 13:46 02/03/24 14:00 02/03/24 14:01 Temperature Pulse Rate 66 71 68 Respiratory Rate 13 15 15 Blood Pressure 136/57 L 134/68 Pulse Oximetry 95 96 98 Oxygen Delivery 02/03/24 14:30 02/03/24 20:00 02/03/24 20:00 Temperature 37.2 C 37.2 C Pulse Rate 66 66 66 Respiratory Rate 16 16 16 Blood Pressure 126/55 L 126/55 L Pulse Oximetry 100 100 100 Oxygen Delivery Room Air 02/03/24 22:00 02/03/24 22:05 02/03/24 22:10 Temperature 37.6 C Pulse Rate 78 Respiratory Rate 18 Blood Pressure 136/60 127/58 L 107/48 L Pulse Oximetry 96 Oxygen Delivery 02/04/24 00:00 02/04/24 06:00 02/04/24 08:00 Temperature 36.8 C 37.1 C 36.6 C Pulse Rate 68 69 67 Respiratory Rate 18 18 16 Blood Pressure 124/58 L 135/62 127/61 Pulse Oximetry 98 98 99 Oxygen Delivery 02/04/24 08:15 02/04/24 08:15 02/04/24 08:15 Temperature Pulse Rate 67 67 78 Respiratory Rate Blood Pressure 127/61 111/61 100/56 L Pulse Oximetry Oxygen Delivery - Exam HEENT: EOMI, PERRLA Lungs: clear to auscultation, normal air movement Heart: regular rhythm, regular rate Abdomen: abdomen soft, non-distended, normal bowel sounds Extremities: normal pulses Integumentary: no abnormalities Neurological: normal speech, normal muscle tone, generalized weakness - Lab Results Laboratory Last Values WBC 0.7 K/mm3 (4.5-10.0) L* 02/04/24 05:27 RBC 2.58 M/mm3 (4.6-6.20) L 02/04/24 05:27 Hgb 7.1 g/dL (14.0-18.0) L 02/04/24 05:27 Hct 22.7 % (42.0-52.0) L 02/04/24 05:27 MCV 88.0 fl (80-100) 02/04/24 05:27 MCH 27.5 pg (26-34) 02/04/24 05:27 MCHC 31.3 g/dl (32-36) L 02/04/24 05:27 RDW 14.2 % (11.5-14.5) 02/04/24 05:27 Plt Count 114 k/mm3 (150-375) L 02/04/24 05:27 MPV 8.9 fl (7.4-10.4) 02/04/24 05:27 Immature Gran % (Auto) 0.0 % (0-0.5) 02/04/24 05:27 Neut % (Auto) 6.2 % (45.5-73.1) L 02/04/24 05:27 Lymph % (Auto) 61.5 % (18.3-44.2) H 02/04/24 05:27 [place] % (Auto) 24.6 % (2.6-8.5) H 02/04/24 05:27 Eos % (Auto) 4.6 % (0-4.4) H 02/04/24 05:27 Baso % (Auto) 3.1 % (0.2-1.2) H 02/04/24 05:27 Lymph # (Auto) 0.40 K/mm3 (0.9-3.2) L 02/04/24 05:27 [place] # (Auto) 0.2 K/mm3 (0.1-0.6) 02/04/24 05:27 Eos # (Auto) 0.0 K/mm3 (0-0.3) 02/04/24 05:27 Baso # (Auto) 0.0 K/mm3 (0.0-0.1) 02/04/24 05:27 Abs Immat Gran (auto) 0.00 K/mm3 (0.00-0.031) 02/04/24 05:27 Absolute Neuts (auto) 0.0 K/mm3 (1.3-6.7) L 02/04/24 05:27 Absolute Nucleated RBC 0.000 K/mm3 (0.0-0.012) 02/04/24 05:27 Nucleated RBC % 0.0 % (0.0-0.2) 02/04/24 05:27 Platelet Estimate Slightly decreased (Adequate) 02/04/24 05:27 % Immature Plt Fraction 0.9 % (0.9-11.2) 02/04/24 05:27 Hypochromasia 1+ 02/04/24 05:27 Schistocytes None seen 02/04/24 05:27 PT 14.2 Seconds (11.1-14.7) 02/03/24 10:37 INR 1.1 02/03/24 10:37 APTT 29.5 Seconds (22.3-36.8) 02/03/24 10:37 Sodium 136 mmol/L (137-145) L 02/04/24 05:27 Potassium 3.2 mmol/L (3.4-5.0) L 02/04/24 05:27 Chloride 103 mmol/L (98-107) 02/04/24 05:27 Carbon Dioxide 27 mmol/L (22-30) 02/04/24 05:27 Anion Gap 6 mmol/L (4-12) 02/04/24 05:27 BUN 7 mg/dL (9-20) L 02/04/24 05:27 Creatinine 0.70 mg/dL (0.7-1.3) 02/04/24 05:27 Estim Creat Clear Calc 77 ml/min 02/04/24 05:27 Estimated GFR > 60 (59-) 02/04/24 05:27 Glucose 102 mg/dL (65-110) 02/04/24 05:27 POC Capillary Glucose 108 mg/dl (65-105) H 02/04/24 08:10 Hemoglobin A1c 5.8 % (<5.7) H 02/04/24 05:27 Lactic Acid 1.3 mmol/L (0.7-2.0) 02/03/24 10:37 Calcium 7.9 mg/dL (8.4-10.2) L 02/04/24 05:27 Total Bilirubin 0.4 mg/dL (0.2-1.3) 02/03/24 10:37 AST 21 U/L (17-59) 02/03/24 10:37 ALT 20 U/L (6-50) 02/03/24 10:37 Alkaline Phosphatase 68 U/L (38-126) 02/03/24 10:37 Total Creatine Kinase < 20 U/L (55-170) L 02/03/24 10:37 Troponin I < 0.012 ng/mL (0.000-0.034) 02/03/24 18:27 Total Protein 7.0 g/dL (6.3-8.2) 02/03/24 10:37 Albumin 3.3 g/dL (3.5-5.1) L 02/03/24 10:37 Urine Color Yellow (Yellow) 02/03/24 11:11 Urine Appearance Clear (Clear) 02/03/24 11:11 Urine pH 7.0 (5.0-9.0) 02/03/24 11:11 Ur Specific [place] 1.014 (1.001-1.035) 02/03/24 11:11 Urine Protein Trace mg/dL (Negative) 02/03/24 11:11 Urine Glucose (UA) Negative mg/dL (Negative) 02/03/24 11:11 Urine Ketones Negative mg/dL (Negative) 02/03/24 11:11 Ur Blood (Man) Negative (Negative) 02/03/24 11:11 Urine Nitrate Negative (Negative) 02/03/24 11:11 Urine Bilirubin Negative (Negative) 02/03/24 11:11 Urine Urobilinogen 1.0 mg/dL (<2.0) 02/03/24 11:11 Leukocyte Esterase Rfl Negative ARIANA/UL (Negative) 02/03/24 11:11 Urine RBC 3-5 /hpf (0-2) H 02/03/24 11:11 Urine WBC 0-5 /hpf (0-3) 02/03/24 11:11 Ur Squamous Epith Cells None seen /hpf (Few) 02/03/24 11:11 Urine Bacteria None seen /hpf 02/03/24 11:11 Urine Casts 0-2 02/03/24 11:11 Nasal MRSA (PCR) Not detected (NOT DETECTE) 02/03/24 13:32 Influenza A (RT-PCR) Negative (Negative) 02/03/24 12:18 Influenza B (RT-PCR) Negative (Negative) 02/03/24 12:18 RSV (RT-PCR) Negative (Negative) 02/03/24 12:18 SARS-CoV-2 RNA (RT-PCR) Negative (Negative) 02/03/24 12:18
[2024-02-04 12:16] LABS: Glucose Point of Care 124 mg/dl (65-105)
[2024-02-04] MEDS: SODIUM CHLORIDE 0.9% IV 1,000 ML 75 ML IV CONT (14:21)
[2024-02-04 16:51] LABS: Glucose Point of Care 104 mg/dl (65-105)
[2024-02-04] MEDS: POTASSIUM CHLORIDE 10 MEQ ER TABLET PO (17:22)
[2024-02-04 17:43] LABS: Hematocrit 23.7 % (42.0-52.0); Hemoglobin 7.6 g/dL (14.0-18.0); Mean Corpuscular HGB Conc 32.1 g/dl (32-36); Mean Corpuscular Hemoglobin 27.7 pg (26-34); Mean Corpuscular Volume 86.5 fl (80-100); Mean Platelet Volume 8.2 fl (7.4-10.4); Platelet Count Result 105 k/mm3 (150-375); Red Blood Count 2.74 M/mm3 (4.6-6.20); Red Cell Distribution Width 14.4 % (11.5-14.5)
[2024-02-04 17:48] LABS: White Blood Count 0.8 K/mm3 (4.5-10.0)
[2024-02-04] MEDS: LORazepam (*CRX) 0.5 MG TABLET PO (21:24)
--- NOTE | 2024-02-04 22:12 | PC.NURSE ---
Pt is aware of needing a stool sample. Pt has felt the need to strain, while hospitalized, and has been using Preparation H. Stool sample will be contaminated and inaccurate.
[2024-02-04 22:17] LABS: Glucose Point of Care 106 mg/dl (65-105)
[2024-02-05] VITALS (9 sets, daily range): BP systolic 93–151; BP diastolic 53–64; PULSE 69–84; RESP 18; TEMP 36.4–38; O2SAT 97–99; BMI 27.5
[2024-02-05] MEDS: SODIUM CHLORIDE 0.9% IV 1,000 ML 75 ML IV CONT ×2 (03:14→16:42)
[2024-02-05] MEDS: CENTRAL LINE FLUSH 10 ML IV PUSH ×2 (06:20→20:49)
[2024-02-05 06:45] LABS: Hematocrit 22.3 % (42.0-52.0); Hemoglobin 7.2 g/dL (14.0-18.0); Mean Corpuscular HGB Conc 32.3 g/dl (32-36); Mean Corpuscular Hemoglobin 28.6 pg (26-34); Mean Corpuscular Volume 88.5 fl (80-100); Mean Platelet Volume 8.3 fl (7.4-10.4); Platelet Count Result 112 k/mm3 (150-375); Red Blood Count 2.52 M/mm3 (4.6-6.20); Red Cell Distribution Width 14.4 % (11.5-14.5)
[2024-02-05 06:59] LABS: Alanine Aminotransferase 17 U/L (6-50); Albumin Level 2.9 g/dL (3.5-5.1); Alkaline Phosphatase 60 U/L (38-126); Anion Gap 7 mmol/L (4-12); Aspartate Amino Transferase 23 U/L (17-59); Bilirubin,Total 0.4 mg/dL (0.2-1.3); Blood Urea Nitrogen 5 mg/dL (9-20); Calcium 7.9 mg/dL (8.4-10.2); Carbon Dioxide 27 mmol/L (22-30); Chloride 103 mmol/L (98-107); Estimated CRCL calculation 77 ml/min; Estimated Glomerular Filt Rate > 60; Glucose 94 mg/dL (65-110); Potassium 3.3 mmol/L (3.4-5.0); Sodium 137 mmol/L (137-145)
[2024-02-05 07:30] LABS: Band Neutrophils Percent 7 % (0-6); Basophils Absolute Manual 0.04 K/mm3 (0.0-0.1); Basophils Percent Manual 4 % (0-1); Eosinophils Absolute Manual 0.01 K/mm3 (0.02-0.50); Eosinophils Percent Manual 1 % (0-4); Lymphocytes Absolute Manual 0.49 K/mm3 (1.1-4.5); Monocytes Percent Manual 20 % (3-9); Neutrophils Absolute Manual 0.26 K/mm3 (1.3-6.7); Neutrophils Percent Manual 19 % (46-73); Nucleated Red Blood Cells 2 %; Platelet Estimate Decreased (Adequate); Total Cells Counted 100
[2024-02-05 07:31] LABS: Schistocytes None Seen
--- NOTE | 2024-02-05 07:40 | PM.IMPN ---
Progress Note: A&P Assessment and Plan (1) Syncope: Qualifiers: Syncope type: unspecified Qualified Code(s): R55 - Syncope and collapse Code(s): R55 - Syncope and collapse Status: Acute Assessment and Plan: Possible etiology dehydration causing orthostatic hypotension vs anemia vs infection vs other - Hgb 7.2 on am labs - EKG, initial: Sinus rhythm, baseline artifact, normal EKG. - CXR: Small left pleural effusion with associated atelectasis versus less likely pneumonia. - Chest CT: Wall thickening of the distal esophagus, compatible with esophageal carcinoma. Degree of wall thickening is probably minimally improved from prior exam Moderate left pleural effusion with left basilar atelectatic change. Mild emphysema. Oqrmk-[id number]-mysciuwz hiatal hernia. Mild mediastinal lymphadenopathy, as noted above, probably minimally improved in some areas as compared to prior exam. - Troponin x2 negative - UA negative for infection - Viral PCR negative - Orthostatic vital signs remain positive post IV fluid bolus in the ED, started on maintenance fluids. Started on midodrine 5 mg TID. (2) Pleural effusion: Code(s): J90 - Pleural effusion, not elsewhere classified Status: Acute Assessment and Plan: - WBC has improved to 1.0 on am labs - Blood cultures 02/02: NGTD - CXR: Small left pleural effusion with associated atelectasis versus less likely pneumonia. - Chest CT: Wall thickening of the distal esophagus, compatible with esophageal carcinoma. Degree of wall thickening is probably minimally improved from prior exam Moderate left pleural effusion with left basilar atelectatic change. Mild emphysema. Vayul-[id number] hiatal hernia. Mild mediastinal lymphadenopathy, as noted above, probably minimally improved in some areas as compared to prior exam. - oncology consulted, awaiting formal recs. Per discussion between the ED provider and on-call oncologist, administer 1 dose of vancomycin and cefepime and observe overnight. 02/04: Discussed patient with oncology, Dr. Neal Douglas. Due to patients pleural effusion, neutropenia, and low grade fever will continue the vanc and cefe at this time. If blood cultures remain NGTD may be able to transition to orals tomorrow for continued treatment. (3) Neutropenia: Qualifiers: Neutropenia type: secondary to cancer chemotherapy Qualified Code(s): D70.1 - Agranulocytosis secondary to cancer chemotherapy; T45.1X5A - Adverse effect of antineoplastic and immunosuppressive drugs, initial encounter Code(s): D70.9 - Neutropenia, unspecified Status: Acute Assessment and Plan: WBC 0.5, HGB 7.8, platelet count 111. 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 - Chest CT ordered to further rule out an underlying pneumonia - monitor temp in BP - reverse isolation - oncology consulted, awaiting formal recs. Per discussion between the ED provider and on-call oncologist, administer 1 dose of vancomycin and cefepime and observe overnight. Monitor blood pressure. Entered orders for 3 days of filgrastim. 02/04: Discussed patient with oncology, Dr. Neal Douglas. Due to patients pleural effusion, neutropenia, and low grade fever will continue the vanc and cefe at this time. If blood cultures remain NGTD may be able to transition to orals tomorrow for continued treatment. (4) Anemia: Qualifiers: Anemia type: unspecified type Qualified Code(s): D64.9 - Anemia, unspecified Code(s): D64.9 - Anemia, unspecified Status: Chronic Assessment and Plan: Hgb 7.8 on admission , previously 9.6 on 01/22/2024. Denies hematuria, hematemesis, hematochezia, melena. No signs of active bleeding. 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 Qualified Code(s): E11.9 - Type 2 diabetes mellitus without complications Code(s): E11.9 - Type 2 diabetes mellitus without complications Status: Chronic Assessment and Plan: - hypoglycemia protocol - POC blood glucose ACHS - no home medications - correct regimen ordered - low dose TIDWM, based off TDD - A1C 6.4% on 09/06/2023, update (6) DORIS (obstructive sleep apnea): Code(s): G47.33 - Obstructive sleep apnea (adult) (pediatric) Status: Acute Assessment and Plan: - continue CPAP Plan Diet: Regular GI Prophylaxis: Not currently indicated DVT Prophylaxis: SCDs Lines: Peripheral Code Status: Full code Time Spent With Patient Time with patient: 25 - 35 minutes Subjective Date/time seen: 02/05/24 07:40 Interval history: 73 y/o M presents here with syncope with PMH of diabetes, GERD, HLD, HTN, and lung cancer with metastasis to the esophagus (currently undergoing treatment). Patient is pleasant lying comfortably in bed with at bedside. He has no complaints at this time denying chest pain, shortness of breath, nausea/vomiting and abdominal pain. Discussed patient with oncology, Dr. Neal Douglas. Due to patients pleural effusion, neutropenia, and low grade fever will continue the vanc and cefe at this time. If blood cultures remain NGTD may be able to transition to orals tomorrow for continued treatment. Review of Systems Review of Systems: All systems reviewed & are unremarkable except as noted in HPI and below Exam Narrative: AF HR 80 RR 16 SpO2 97 BP 144/68 General: male in no acute respiratory distress who is nontoxic appearing, lying semi recumbent in bed. HEENT: Normocephalic. Atraumatic. Extraocular movement intact. Sclera clear and anicteric. No facial asymmetry. Chest: Lungs are clear but diminished to auscultation bilaterally. No wheezes or crackles. CV: Heart was regular rate and rhythm. S1/S2. No murmurs, gallops, or rubs. Abd: Abdomen was soft. Nontender. Nondistended. Positive bowel sounds. No organomegaly or masses. Ext: No clubbing, cyanosis, or edema. 2+ DP pulses bilaterally. Neuro: Patient is alert and oriented x4. Cranial nerves 2-12 are intact. Speech is clear. Objective Data Vital Signs Vital Signs: Vital Signs - 24 hr 02/04/24 08:00 02/04/24 08:15 02/04/24 08:15 Temperature 97.8 F Pulse Rate 67 67 67 Respiratory Rate 16 Blood Pressure 127/61 127/61 111/61 Pulse Oximetry 99 Oxygen Delivery 02/04/24 08:15 02/04/24 08:36 02/04/24 16:00 Temperature 99.8 F H Pulse Rate 78 71 Respiratory Rate 18 Blood Pressure 100/56 L 148/72 H Pulse Oximetry 98 Oxygen Delivery Room Air 02/04/24 21:37 02/04/24 20:00 02/04/24 21:41 Temperature 99.5 F Pulse Rate 69 69 77 Respiratory Rate 16 Blood Pressure 144/68 H 131/62 108/57 L Pulse Oximetry 97 Oxygen Delivery 02/04/24 20:00 Temperature Pulse Rate 77 Respiratory Rate 16 Blood Pressure Pulse Oximetry 97 Oxygen Delivery Room Air Intake/Output Intake/Output: Intake & Output 02/03/24 02/04/24 02/04/24 02/05/24 00:59 00:59 23:59 23:59 Intake Total 1166.2 Output Total Balance 1166.2 Meds/Results Medications: Active Medications Generic Name Dose Route Start Last Admin Trade Name Freq PRN Reason Stop Dose Admin Acetaminophen 650 mg 02/03/24 13:12 Acetaminophen 325 Mg Tablet PO Q4H PRN Mild Pain (1-3) or Fever Dextrose 12.5 gm 02/03/24 13:29 Dextrose 50% 25 Gm/50 Ml Syringe IV PUSH PRN PRN Hypoglycemia Protocol Filgrastim-Sndz 300 mcg 02/04/24 11:00 02/04/24 10:40 Filgrastim-Sndz 300 Mcg/0.5 Ml Syringe SUB-Q 02/07/24 23:59 300 mcg DAILY ROXANN Administration Glucagon 1 mg 02/03/24 13:29 Glucagon For Inj 1 Mg Vial IM PRN PRN Hypoglycemia Protocol Glucose 15 gm 02/03/24 13:29 Glucose Oral Gel 15 Gm Of Glucse In 37.5 Gm Tube PO PRN PRN Hypoglycemia Protocol Heparin Sodium (Beef Lung) 50 units 02/04/24 09:00 02/04/24 08:34 Heparin Flush 50 Units/5 Ml Syringe IV PUSH Not Given QAM ROXANN Heparin Sodium (Beef Lung) 50 units 02/03/24 11:04 Heparin Flush 50 Units/5 Ml Syringe IV PUSH PRN PRN after intermittent infusion Heparin Sodium (Beef Lung) 50 units 02/03/24 11:04 02/05/24 06:20 Heparin Flush 50 Units/5 Ml Syringe IV PUSH 50 units PRN PRN Administration after blood draws Heparin Sodium (Porcine) 500 units 02/03/24 11:04 Heparin Sodium Lock Flush 500 Units/5 Ml Syringe IV PUSH PRN PRN see comments below Dextrose 1,000 mls @ 100 mls/hr 02/03/24 13:29 Dextrose 5% 1,000 Ml IVPB PRN PRN Hypoglycemia Protocol Sodium Chloride 1,000 mls @ 75 mls/hr 02/04/24 13:55 02/05/24 03:14 Normal Saline Iv IV CONT 75 mls/hr .[id number] ROXANN Administration Insulin Aspart 2 - 5 units 02/03/24 17:00 02/04/24 17:05 Insulin Aspart (*Bkc) 100 Units/Ml SUB-Q Not Given TIDWM ROXANN Protocol Lorazepam 0.5 mg 02/03/24 16:18 02/04/24 21:24 Lorazepam (*Crx) 0.5 Mg Tablet PO 0.5 mg BID PRN Administration anxiety Pantoprazole Sodium 40 mg 02/03/24 21:00 02/04/24 21:24 Pantoprazole 40 Mg Tablet PO 40 mg Q12HR ROXANN Administration Polyethylene Glycol 17 gm 02/03/24 15:33 Polyethylene Glycol 3350 17 Gm Powd.Pack PO QAM PRN Constipation Potassium Chloride 10 meq 02/03/24 17:00 02/04/24 17:22 Potassium Chloride 10 Meq Er Tablet PO 10 meq BIDWM ROXANN Administration Sodium Chloride 10 ml 02/03/24 14:00 02/05/24 06:20 Central Line Flush IV PUSH 10 ml Q8HR ROXANN Administration Radiology Results: ITS Impressions Chest X-Ray 02/03/24 10:11 IMPRESSION: 1. Small left pleural effusion with associated atelectasis versus less likely pneumonia. Head CT 02/03/24 11:06 IMPRESSION: 1. Normal aging brain. No acute intracranial process. 2. Fluid/mucus nearly filling the right sphenoid sinus which can be seen with acute sinusitis Chest CT 02/05/24 06:50 Impression: Wall thickening of the distal esophagus, compatible with esophageal carcinoma. Degree of wall thickening is probably minimally improved from prior exam. Moderate left pleural effusion with left basilar atelectatic change. Mild emphysema. [id number] hiatal hernia. Mild mediastinal lymphadenopathy, as noted above, probably minimally improved in some areas as compared to prior exam. Labs Labs: Laboratory Results - last 24 hr 02/04/24 02/04/24 02/04/24 08:10 12:12 16:48 WBC RBC Hgb Hct MCV MCH MCHC RDW Plt Count MPV Immature Gran % (Auto) Neut % (Auto) Lymph % (Auto) Amelia % (Auto) Eos % (Auto) Baso % (Auto) Lymph # (Auto) Amelia # (Auto) Eos # (Auto) Baso # (Auto) Abs Immat Gran (auto) Absolute Neuts (auto) Absolute Nucleated RBC Total Counted Neutrophils % (Manual) Band Neutrophils % Lymphocytes % (Manual) Monocytes % (Manual) Eosinophils % (Manual) Basophils % (Manual) Nucleated RBC % Abs Neuts (Manual) Abs Lymphs (Manual) Abs Monocytes (Manual) Absolute Eos (Manual) Abs Basophils (Manual) Nucleated RBCs Platelet Estimate Schistocytes Sodium Potassium Chloride Carbon Dioxide Anion Gap BUN Creatinine Estim Creat Clear Calc Estimated GFR Glucose POC Capillary Glucose 108 H 124 H 104 Lactic Acid Calcium Total Bilirubin AST ALT Alkaline Phosphatase Total Protein Albumin 02/04/24 02/04/24 02/05/24 17:23 21:34 06:19 WBC 0.8 L* 1.0 L* RBC 2.74 L 2.52 L Hgb 7.6 L 7.2 L Hct 23.7 L 22.3 L MCV 86.5 88.5 MCH 27.7 28.6 MCHC 32.1 32.3 RDW 14.4 14.4 Plt Count 105 L 112 L MPV 8.2 8.3 Immature Gran % (Auto) Not Reportable Neut % (Auto) Not Reportable Lymph % (Auto) Not Reportable Amelia % (Auto) Not Reportable Eos % (Auto) Not Reportable Baso % (Auto) Not Reportable Lymph # (Auto) Not Reportable Amelia # (Auto) Not Reportable Eos # (Auto) Not Reportable Baso # (Auto) Not Reportable Abs Immat Gran (auto) Not Reportable Absolute Neuts (auto) Not Reportable Absolute Nucleated RBC Not Reportable Total Counted 100 Neutrophils % (Manual) 19 L Band Neutrophils % 7 H Lymphocytes % (Manual) 49.0 H Monocytes % (Manual) 20 H Eosinophils % (Manual) 1 Basophils % (Manual) 4 H Nucleated RBC % Not Reportable Abs Neuts (Manual) 0.26 L Abs Lymphs (Manual) 0.49 L Abs Monocytes (Manual) 0.20 Absolute Eos (Manual) 0.01 L Abs Basophils (Manual) 0.04 Nucleated RBCs 2 Platelet Estimate Decreased Schistocytes None seen Sodium 137 Potassium 3.3 L Chloride 103 Carbon Dioxide 27 Anion Gap 7 BUN 5 L Creatinine 0.70 Estim Creat Clear Calc 77 Estimated GFR > 60 Glucose 94 POC Capillary Glucose 106 H Lactic Acid 1.0 Calcium 7.9 L Total Bilirubin 0.4 AST 23 ALT 17 Alkaline Phosphatase 60 Total Protein 7.0 Albumin 2.9 L Quality VTE Prophylaxis VTE prophylaxis: mechanical ordered
[2024-02-05 08:08] LABS: Glucose Point of Care 98 mg/dl (65-105)
[2024-02-05] MEDS: PANTOPRAZOLE 40 MG TABLET PO ×2 (09:56→20:46)
[2024-02-05] MEDS: POTASSIUM CHLORIDE 10 MEQ ER TABLET PO ×2 (09:56→16:41)
[2024-02-05] MEDS: CEFEPIME 2 GM/NS 50 ML 2 GM/50 ML BAG IVPB ×3 (09:56→20:49)
[2024-02-05] MEDS: FILGRASTIM-SNDZ 300 MCG/0.5 ML SYRINGE SUB-Q (09:57)
[2024-02-05] MEDS: VANCOMYCIN 2,000 MG/NS 500 ML 2,000 MG/500 ML BAG 250 MG IVPB (10:51)
[2024-02-05 12:04] LABS: Glucose Point of Care 119 mg/dl (65-105)
[2024-02-05] MEDS: MIDODRINE HCL 2.5 MG TABLET 5 MG PO ×2 (13:31→16:41)
[2024-02-05 17:16] LABS: Glucose Point of Care 103 mg/dl (65-105)
--- NOTE | 2024-02-05 19:59 | P.PNONC_ITS ---
Progress Note: A/P (1) Small cell lung cancer Code(s): C34.90 - Malignant neoplasm of unspecified part of unspecified bronchus or lung Status: Acute - Additional Plan This is a 73-year-old male with- Metastatic small cell cancer- The patient was diagnosed with metastatic small cell carcinoma. Patient was having dysphagia since summer 2023 and underwent EGD on 11/22/23 as outpatient. A large friable mass was seen in mid and distal esophagus measuring 9cm in length. Biopsy pathology was consistent with small cell carcinoma. A staging CT chest/abd/pelvis done 11/24/23 showed a mass in the mid and distal esophagus with metastatic lymphadenopathy including mediastinal lymphadenopathy, metastatic epigastric and gastrohepatic lymphadenopathy, and retroperitoneal lymphadenopathy. He also had several liver lesions measuring up to 13 mm in size and has previously had a minimal bilateral pleural effusion. PET scan on 12/22/2023 which showed wall thickening and prominent increased FDG uptake at the distal third of the esophagus consistent with reported primary esophageal cancer with FDG avid metastatic lymphadenopathy at the lower neck, mediastinum and upper abdomen along with 4 FDG avid avid liver lesions also consistent with metastatic disease. Brain MRI on 12/24/2023 showed no evidence of metastatic disease. Patient was seen by Dr. Ambrose and was started on Carboplatin, Etoposide and Atezolizumab 01/22/24-01/24/24. Patient is now hospitalized for orthostasis and syncopal episode. Admission CBC shows WBC of 0.5 and Hemoglobin 7.8g/dL. Blood cultures preliminary with no growth. Started on filgastrim and received 300mcg SC dose on 02/04/24 and 02/05/24. WBC is 1.0 today with ANC 0.2. He will get another dose on 02/06/24. Will await final culture report at 48 hrs. If no growth in cultures at 48 hrs, patient can be discharged. - Time Spent With Patient Total time spent is greater than 50% in coordination of care (as documented) at patient's floor/unit and/or counseling patient: 25 - 35 minutes Subjective Interval history: Patient seen at bedside resting well. Patient states that he is feeling better since the time of admission. There has been no syncopal episode during hospital ization. He is eating better and remains afebrile Review of Systems - Constitutional Comments: Denies fever chills night sweats weight loss - Eyes Comments: Normal - ENT Comments: Normal. - Cardiovascular Comments: Normal - Respiratory Comments: No cough or phlegm production - Gastrointestinal Reports belching, Reports feeling full early, Reports dyspepsia - Neurologic Reports weakness Exam Vital signs: Temp Pulse Resp BP Pulse Ox O2 Del Method 38.0 C H 84 18 100/53 L 99 Room Air 02/05/24 19:45 02/05/24 19:45 02/05/24 19:45 02/05/24 19:45 02/05/24 19:45 02/05/24 10:09 - Constitutional no acute distress - Routine HEENT Exam Head: Present: atraumatic Eye: Present: EOMI, normal appearance - Routine Neck Exam Present: full ROM - Routine Respiratory Exam Present: CTAB - Routine Cardiovascular Exam Cardiovascular: Present: RRR, S1, S2 - Routine Abdominal Exam Present: normal bowel sounds - Routine Extremities Exam Present: full ROM PN: Objective Data - Labs CBC & Chem 7: 02/05/24 06:19 02/05/24 06:19 Labs: Laboratory Results - last 24 hr 02/04/24 02/05/24 02/05/24 21:34 06:19 07:55 WBC 1.0 L* RBC 2.52 L Hgb 7.2 L Hct 22.3 L MCV 88.5 MCH 28.6 MCHC 32.3 RDW 14.4 Plt Count 112 L MPV 8.3 Immature Gran % (Auto) Not Reportable Neut % (Auto) Not Reportable Lymph % (Auto) Not Reportable [place] % (Auto) Not Reportable Eos % (Auto) Not Reportable Baso % (Auto) Not Reportable Lymph # (Auto) Not Reportable [place] # (Auto) Not Reportable Eos # (Auto) Not Reportable Baso # (Auto) Not Reportable Abs Immat Gran (auto) Not Reportable Absolute Neuts (auto) Not Reportable Absolute Nucleated RBC Not Reportable Total Counted 100 Neutrophils % (Manual) 19 L Band Neutrophils % 7 H Lymphocytes % (Manual) 49.0 H Monocytes % (Manual) 20 H Eosinophils % (Manual) 1 Basophils % (Manual) 4 H Nucleated RBC % Not Reportable Abs Neuts (Manual) 0.26 L Abs Lymphs (Manual) 0.49 L Abs Monocytes (Manual) 0.20 Absolute Eos (Manual) 0.01 L Abs Basophils (Manual) 0.04 Nucleated RBCs 2 Platelet Estimate Decreased Schistocytes None seen Sodium 137 Potassium 3.3 L Chloride 103 Carbon Dioxide 27 Anion Gap 7 BUN 5 L Creatinine 0.70 Estim Creat Clear Calc 77 Estimated GFR > 60 Glucose 94 POC Capillary Glucose 106 H 98 Calcium 7.9 L Total Bilirubin 0.4 AST 23 ALT 17 Alkaline Phosphatase 60 Total Protein 7.0 Albumin 2.9 L 02/05/24 02/05/24 11:48 17:14 WBC RBC Hgb Hct MCV MCH MCHC RDW Plt Count MPV Immature Gran % (Auto) Neut % (Auto) Lymph % (Auto) [place] % (Auto) Eos % (Auto) Baso % (Auto) Lymph # (Auto) [place] # (Auto) Eos # (Auto) Baso # (Auto) Abs Immat Gran (auto) Absolute Neuts (auto) Absolute Nucleated RBC Total Counted Neutrophils % (Manual) Band Neutrophils % Lymphocytes % (Manual) Monocytes % (Manual) Eosinophils % (Manual) Basophils % (Manual) Nucleated RBC % Abs Neuts (Manual) Abs Lymphs (Manual) Abs Monocytes (Manual) Absolute Eos (Manual) Abs Basophils (Manual) Nucleated RBCs Platelet Estimate Schistocytes Sodium Potassium Chloride Carbon Dioxide Anion Gap BUN Creatinine Estim Creat Clear Calc Estimated GFR Glucose POC Capillary Glucose 119 H 103 Calcium Total Bilirubin AST ALT Alkaline Phosphatase Total Protein Albumin
[2024-02-05] MEDS: LORazepam (*CRX) 0.5 MG TABLET PO (20:46)
[2024-02-05 23:28] LABS: Glucose Point of Care 120 mg/dl (65-105)
[2024-02-06] VITALS (15 sets, daily range): BP systolic 103–168; BP diastolic 55–79; PULSE 63–81; RESP 16–18; TEMP 36.4–37.4; O2SAT 96–98
[2024-02-06] MEDS: VANCOMYCIN 1,500 MG/NS 500 ML 1,500 MG/500 ML BAG 125 MG IVPB (02:07)
[2024-02-06] MEDS: CEFEPIME 2 GM/NS 50 ML 2 GM/50 ML BAG IVPB ×3 (06:30→22:12)
[2024-02-06] MEDS: CENTRAL LINE FLUSH 10 ML IV PUSH ×2 (06:30→22:12)
[2024-02-06 06:36] LABS: Basophils Percent Auto 0.9 % (0.2-1.2); Eosinophils Absolute Auto 0.1 K/mm3 (0-0.3); Eosinophils Percent Auto 1.5 % (0-4.4); Hematocrit 22.1 % (42.0-52.0); Immature Granulocyte Absolute 0.28 K/mm3 (0.00-0.031); Immature Granulocyte Percent A 8.4 % (0-0.5); Lymphocytes Absolute Auto 0.64 K/mm3 (0.9-3.2); Lymphocytes Percent Auto 19.2 % (18.3-44.2); Mean Corpuscular HGB Conc 31.7 g/dl (32-36); Mean Corpuscular Hemoglobin 28.2 pg (26-34); Mean Corpuscular Volume 89.1 fl (80-100); Monocytes Absolute Auto 0.6 K/mm3 (0.1-0.6); Monocytes Percent Auto 17.7 % (2.6-8.5); Neutrophils Absolute Auto 1.8 K/mm3 (1.3-6.7); Neutrophils Percent Auto 52.3 % (45.5-73.1); Nucleated Red Blood Cells Perc 0.6 % (0.0-0.2); Platelet Count Result 151 k/mm3 (150-375); Red Blood Count 2.48 M/mm3 (4.6-6.20); Red Cell Distribution Width 14.6 % (11.5-14.5); White Blood Count 3.3 K/mm3 (4.5-10.0)
[2024-02-06 06:47] LABS: Alanine Aminotransferase 17 U/L (6-50); Albumin Level 2.8 g/dL (3.5-5.1); Alkaline Phosphatase 61 U/L (38-126); Anion Gap 6 mmol/L (4-12); Aspartate Amino Transferase 23 U/L (17-59); Bilirubin,Total 0.3 mg/dL (0.2-1.3); Blood Urea Nitrogen 5 mg/dL (9-20); Calcium 7.9 mg/dL (8.4-10.2); Carbon Dioxide 25 mmol/L (22-30); Chloride 106 mmol/L (98-107); Estimated CRCL calculation 77 ml/min; Estimated Glomerular Filt Rate > 60; Glucose 94 mg/dL (65-110); Potassium 3.2 mmol/L (3.4-5.0); Sodium 137 mmol/L (137-145)
--- NOTE | 2024-02-06 07:05 | PM.IMPN ---
Progress Note: A&P Assessment and Plan (1) Syncope: Qualifiers: Syncope type: unspecified Qualified Code(s): R55 - Syncope and collapse Code(s): R55 - Syncope and collapse Status: Acute Assessment and Plan: Possible etiology dehydration causing orthostatic hypotension vs anemia vs infection vs other - Hgb 7.0 on am labs - EKG, initial: Sinus rhythm, baseline artifact, normal EKG. - CXR: Small left pleural effusion with associated atelectasis versus less likely pneumonia. - Chest CT: Wall thickening of the distal esophagus, compatible with esophageal carcinoma. Degree of wall thickening is probably minimally improved from prior exam Moderate left pleural effusion with left basilar atelectatic change. Mild emphysema. [id number] hiatal hernia. Mild mediastinal lymphadenopathy, as noted above, probably minimally improved in some areas as compared to prior exam. - Troponin x2 negative - UA negative for infection - Viral PCR negative - Orthostatic vital signs remain positive post IV fluid bolus in the ED, started on maintenance fluids. Started on midodrine 5 mg TID. Patient denies dizziness/lightheadedness with position changes. Educated on making slow position changes. (2) Pleural effusion: Code(s): J90 - Pleural effusion, not elsewhere classified Status: Acute Assessment and Plan: - WBC has improved to 1.0 on am labs - Blood cultures 02/02: NGTD - CXR: Small left pleural effusion with associated atelectasis versus less likely pneumonia. - Chest CT: Wall thickening of the distal esophagus, compatible with esophageal carcinoma. Degree of wall thickening is probably minimally improved from prior exam Moderate left pleural effusion with left basilar atelectatic change. Mild emphysema. [id number] hiatal hernia. Mild mediastinal lymphadenopathy, as noted above, probably minimally improved in some areas as compared to prior exam. - oncology consulted, awaiting formal recs. Per discussion between the ED provider and on-call oncologist, administer 1 dose of vancomycin and cefepime and observe overnight. 02/04: Discussed patient with oncology, Dr. Neal Douglas. Due to patients pleural effusion, neutropenia, and low grade fever will continue the vanc and cefe at this time. If blood cultures remain NGTD may be able to transition to orals tomorrow for continued treatment. 02/05: Patient developed a true fever of 100.4 overnight. New blood cultures drawn. Prior blood cultures remain NGTD. Diagnostic thoracentesis ordered. Remains on vanc and cefe. (3) Neutropenia: Qualifiers: Neutropenia type: secondary to cancer chemotherapy Qualified Code(s): D70.1 - Agranulocytosis secondary to cancer chemotherapy; T45.1X5A - Adverse effect of antineoplastic and immunosuppressive drugs, initial encounter Code(s): D70.9 - Neutropenia, unspecified Status: Acute Assessment and Plan: WBC 0.5, HGB 7.8, platelet count 111. 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 - Chest CT ordered to further rule out an underlying pneumonia - monitor temp in BP - reverse isolation - oncology consulted, awaiting formal recs. Per discussion between the ED provider and on-call oncologist, administer 1 dose of vancomycin and cefepime and observe overnight. Monitor blood pressure. Entered orders for 3 days of filgrastim. (4) Anemia: Qualifiers: Anemia type: unspecified type Qualified Code(s): D64.9 - Anemia, unspecified Code(s): D64.9 - Anemia, unspecified Status: Chronic Assessment and Plan: Hgb 7.8 on admission , previously 9.6 on 01/22/2024. Denies hematuria, hematemesis, hematochezia, melena. No signs of active bleeding. - Hgb 7.0 on am labs - Given epogen 10,000 units subq x1 due to known pancytopenia on 02/03 - discussed with oncology and they want patient to recieve a unit of pRBC for the current hgb. pRBC x1 ordered. - previous history of HUGO, currently undergoing chemotherapy with subsequent pancytopenia/neutropenia - transfuse if less than 7 - monitor (5) Diabetes type 2, controlled: Qualifiers: Diabetes mellitus complication status: without complication Diabetes mellitus halfway insulin use: without halfway use Qualified Code(s): E11.9 - Type 2 diabetes mellitus without complications Code(s): E11.9 - Type 2 diabetes mellitus without complications Status: Chronic Assessment and Plan: - hypoglycemia protocol - POC blood glucose ACHS - no home medications - correct regimen ordered - low dose TIDWM, based off TDD - A1C 5.8 (6) DORIS (obstructive sleep apnea): Code(s): G47.33 - Obstructive sleep apnea (adult) (pediatric) Status: Acute Assessment and Plan: - continue CPAP Plan Diet: Regular GI Prophylaxis: Not currently indicated DVT Prophylaxis: SCDs Lines: Peripheral Code Status: Full code Time Spent With Patient Time with patient: 25 - 35 minutes Subjective Date/time seen: 02/06/24 07:05 Interval history: 73 y/o M presents here with syncope with PMH of diabetes, GERD, HLD, HTN, and lung cancer with metastasis to the esophagus (currently undergoing treatment). Patient is lying comfortably in bed with at bedside. He has no complaints, denying chest pain, shortness of breath, nausea/vomiting and abdominal pain. He developed a true neutropenic fever overnight of 100.4. Remains on vancomycin and cefepime at this time. Will obtain a diagnostic thoracentesis given the worsening fevers during admission. New blood cultures ordered. Prior showing NGTD. Discussed patient with oncology and they also recommend giving patient a unit of pRBC given his hgb of 7. pRBC ordered. Review of Systems Review of Systems: All systems reviewed & are unremarkable except as noted in HPI and below Exam Narrative: Febrile overnight 100.4 HR 76 RR 17 SpO2 97 BP 138/68 General: male in no acute respiratory distress who is nontoxic appearing, lying semi recumbent in bed. HEENT: Normocephalic. Atraumatic. Extraocular movement intact. Sclera clear and anicteric. No facial asymmetry. Chest: Lungs are clear but diminished to auscultation bilaterally. No wheezes or crackles. CV: Heart was regular rate and rhythm. S1/S2. No murmurs, gallops, or rubs. Abd: Abdomen was soft. Nontender. Nondistended. Positive bowel sounds. No organomegaly or masses. Ext: No clubbing, cyanosis, or edema. 2+ DP pulses bilaterally. Neuro: Patient is alert and oriented x4. Cranial nerves 2-12 are intact. Speech is clear. Objective Data Vital Signs Vital Signs: Vital Signs - 24 hr 02/05/24 10:01 02/05/24 10:09 02/05/24 10:02 Temperature Pulse Rate 69 72 Respiratory Rate Blood Pressure 121/61 110/55 L Pulse Oximetry Oxygen Delivery Room Air 02/05/24 10:05 02/05/24 13:59 02/05/24 14:01 Temperature 97.5 F L Pulse Rate 80 69 69 Respiratory Rate 18 Blood Pressure 93/54 L 137/63 137/63 Pulse Oximetry 97 97 Oxygen Delivery 02/05/24 14:00 02/05/24 14:00 02/05/24 19:37 Temperature 99.8 F H Pulse Rate 74 74 72 Respiratory Rate 18 Blood Pressure 123/57 L 128/56 L 151/61 H Pulse Oximetry 98 99 99 Oxygen Delivery 02/05/24 19:45 02/05/24 19:45 02/05/24 20:00 Temperature 100.2 F H 100.4 F H Pulse Rate 80 84 84 Respiratory Rate 18 18 18 Blood Pressure 145/64 H 100/53 L Pulse Oximetry 99 99 99 Oxygen Delivery Room Air 02/06/24 00:00 02/06/24 06:18 Temperature 98.4 F 98.1 F Pulse Rate 75 72 Respiratory Rate 18 18 Blood Pressure 134/60 142/73 H Pulse Oximetry 97 97 Oxygen Delivery Intake/Output Intake/Output: Intake & Output 02/04/24 02/04/24 02/05/24 02/06/24 00:59 23:59 23:59 23:59 Intake Total 3736.2 500 Output Total Balance 3736.2 500 Meds/Results Medications: Active Medications Generic Name Dose Route Start Last Admin Trade Name Freq PRN Reason Stop Dose Admin Acetaminophen 650 mg 02/03/24 13:12 Acetaminophen 325 Mg Tablet PO Q4H PRN Mild Pain (1-3) or Fever Dextrose 12.5 gm 02/03/24 13:29 Dextrose 50% 25 Gm/50 Ml Syringe IV PUSH PRN PRN Hypoglycemia Protocol Filgrastim-Sndz 300 mcg 02/04/24 11:00 02/05/24 09:57 Filgrastim-Sndz 300 Mcg/0.5 Ml Syringe SUB-Q 02/07/24 23:59 300 mcg DAILY ROXANN Administration Glucagon 1 mg 02/03/24 13:29 Glucagon For Inj 1 Mg Vial IM PRN PRN Hypoglycemia Protocol Glucose 15 gm 02/03/24 13:29 Glucose Oral Gel 15 Gm Of Glucse In 37.5 Gm Tube PO PRN PRN Hypoglycemia Protocol Heparin Sodium (Beef Lung) 50 units 02/04/24 09:00 02/05/24 09:52 Heparin Flush 50 Units/5 Ml Syringe IV PUSH Not Given QAM ROXANN Heparin Sodium (Beef Lung) 50 units 02/03/24 11:04 Heparin Flush 50 Units/5 Ml Syringe IV PUSH PRN PRN after intermittent infusion Heparin Sodium (Beef Lung) 50 units 02/03/24 11:04 02/06/24 06:30 Heparin Flush 50 Units/5 Ml Syringe IV PUSH 50 units PRN PRN Administration after blood draws Heparin Sodium (Porcine) 500 units 02/03/24 11:04 Heparin Sodium Lock Flush 500 Units/5 Ml Syringe IV PUSH PRN PRN see comments below Dextrose 1,000 mls @ 100 mls/hr 02/03/24 13:29 Dextrose 5% 1,000 Ml IVPB PRN PRN Hypoglycemia Protocol Sodium Chloride 1,000 mls @ 75 mls/hr 02/04/24 13:55 02/05/24 16:42 Normal Saline Iv IV CONT 75 mls/hr .[id number] ROXANN Administration Cefepime HCl 2 gm in 50 mls @ 100 mls/hr 02/05/24 08:20 02/06/24 06:30 Maxipime 2 Gm/Ns 50 Ml IVPB 100 mls/hr Q8HR ROXANN Administration Vancomycin HCl 1,500 mg in 500 mls @ 250 mls/hr 02/06/24 03:00 02/06/24 06:07 Vancomycin 1,500 Mg/Ns 500 Ml IVPB Infused Q18H ROXANN Infusion Insulin Aspart 2 - 5 units 02/03/24 17:00 02/05/24 19:30 Insulin Aspart (*Bkc) 100 Units/Ml SUB-Q Not Given TIDWM ROXANN Protocol Lorazepam 0.5 mg 02/03/24 16:18 02/05/24 20:46 Lorazepam (*Crx) 0.5 Mg Tablet PO 0.5 mg BID PRN Administration anxiety Midodrine 5 mg 02/05/24 13:00 02/05/24 16:41 Midodrine Hcl 2.5 Mg Tablet PO 5 mg TID ROXANN Administration Pantoprazole Sodium 40 mg 02/03/24 21:00 02/05/24 20:46 Pantoprazole 40 Mg Tablet PO 40 mg Q12HR ROXANN Administration Polyethylene Glycol 17 gm 02/03/24 15:33 Polyethylene Glycol 3350 17 Gm Powd.Pack PO QAM PRN Constipation Potassium Chloride 10 meq 02/03/24 17:00 02/05/24 16:41 Potassium Chloride 10 Meq Er Tablet PO 10 meq BIDWM ROXANN Administration Potassium Chloride 40 meq 02/06/24 07:03 Potassium Chloride 20 Meq Er Tablet PO 02/06/24 07:04 ONCE ONE Sodium Chloride 10 ml 02/03/24 14:00 02/06/24 06:30 Central Line Flush IV PUSH 10 ml Q8HR ROXANN Administration Radiology Results: ITS Impressions Chest X-Ray 02/03/24 10:11 IMPRESSION: 1. Small left pleural effusion with associated atelectasis versus less likely pneumonia. Head CT 02/03/24 11:06 IMPRESSION: 1. Normal aging brain. No acute intracranial process. 2. Fluid/mucus nearly filling the right sphenoid sinus which can be seen with acute sinusitis Chest CT 02/05/24 06:50 Impression: Wall thickening of the distal esophagus, compatible with esophageal carcinoma. Degree of wall thickening is probably minimally improved from prior exam. Moderate left pleural effusion with left basilar atelectatic change. Mild emphysema. [id number] hiatal hernia. Mild mediastinal lymphadenopathy, as noted above, probably minimally improved in some areas as compared to prior exam. Labs Labs: Laboratory Results - last 24 hr 02/05/24 02/05/24 02/05/24 06:19 07:55 11:48 WBC 1.0 L* RBC 2.52 L Hgb 7.2 L Hct 22.3 L MCV 88.5 MCH 28.6 MCHC 32.3 RDW 14.4 Plt Count 112 L MPV 8.3 Immature Gran % (Auto) Not Reportable Neut % (Auto) Not Reportable Lymph % (Auto) Not Reportable [place] % (Auto) Not Reportable Eos % (Auto) Not Reportable Baso % (Auto) Not Reportable Lymph # (Auto) Not Reportable [place] # (Auto) Not Reportable Eos # (Auto) Not Reportable Baso # (Auto) Not Reportable Abs Immat Gran (auto) Not Reportable Absolute Neuts (auto) Not Reportable Absolute Nucleated RBC Not Reportable Total Counted 100 Neutrophils % (Manual) 19 L Band Neutrophils % 7 H Lymphocytes % (Manual) 49.0 H Monocytes % (Manual) 20 H Eosinophils % (Manual) 1 Basophils % (Manual) 4 H Nucleated RBC % Not Reportable Abs Neuts (Manual) 0.26 L Abs Lymphs (Manual) 0.49 L Abs Monocytes (Manual) 0.20 Absolute Eos (Manual) 0.01 L Abs Basophils (Manual) 0.04 Nucleated RBCs 2 Platelet Estimate Decreased Schistocytes None seen Sodium Potassium Chloride Carbon Dioxide Anion Gap BUN Creatinine Estim Creat Clear Calc Estimated GFR Glucose POC Capillary Glucose 98 119 H Calcium Total Bilirubin AST ALT Alkaline Phosphatase Total Protein Albumin 02/05/24 02/05/24 02/06/24 17:14 21:06 06:28 WBC RBC Hgb Hct MCV MCH MCHC RDW Plt Count MPV Immature Gran % (Auto) Neut % (Auto) Lymph % (Auto) [place] % (Auto) Eos % (Auto) Baso % (Auto) Lymph # (Auto) [place] # (Auto) Eos # (Auto) Baso # (Auto) Abs Immat Gran (auto) Absolute Neuts (auto) Absolute Nucleated RBC Total Counted Neutrophils % (Manual) Band Neutrophils % Lymphocytes % (Manual) Monocytes % (Manual) Eosinophils % (Manual) Basophils % (Manual) Nucleated RBC % Abs Neuts (Manual) Abs Lymphs (Manual) Abs Monocytes (Manual) Absolute Eos (Manual) Abs Basophils (Manual) Nucleated RBCs Platelet Estimate Schistocytes Sodium 137 Potassium 3.2 L Chloride 106 Carbon Dioxide 25 Anion Gap 6 BUN 5 L Creatinine 0.70 Estim Creat Clear Calc 77 Estimated GFR > 60 Glucose 94 POC Capillary Glucose 103 120 H Calcium 7.9 L Total Bilirubin 0.3 AST 23 ALT 17 Alkaline Phosphatase 61 Total Protein 6.0 L Albumin 2.8 L Quality VTE Prophylaxis VTE prophylaxis: mechanical ordered
[2024-02-06 08:11] LABS: Glucose Point of Care 116 mg/dl (65-105)
[2024-02-06] MEDS: POTASSIUM CHLORIDE 10 MEQ ER TABLET PO ×2 (08:20→18:00)
[2024-02-06] MEDS: FILGRASTIM-SNDZ 300 MCG/0.5 ML SYRINGE SUB-Q (08:21)
[2024-02-06] MEDS: MIDODRINE HCL 2.5 MG TABLET 5 MG PO ×3 (08:21→18:00)
[2024-02-06] MEDS: PANTOPRAZOLE 40 MG TABLET PO ×2 (08:21→21:28)
[2024-02-06] MEDS: POTASSIUM CHLORIDE 20 MEQ PACKET (FOR LIQUID) 40 MEQ PO (09:15)
[2024-02-06 09:58] LABS: Band Neutrophils Percent 9 % (0-6); Basophils Percent Manual 0 % (0-1); Eosinophils Absolute Manual 0.03 K/mm3 (0.02-0.50); Eosinophils Percent Manual 1 % (0-4); Large Platelets Present; Lymphocytes Absolute Manual 0.95 K/mm3 (1.1-4.5); Lymphocytes Percent Manual 29 % (18-44); Monocytes Absolute Manual 0.59 K/mm3 (0.1-0.90); Monocytes Percent Manual 18 % (3-9); Neutrophils Absolute Manual 1.71 K/mm3 (1.3-6.7); Neutrophils Percent Manual 43 % (46-73); Total Cells Counted 100
[2024-02-06 10:02] LABS: Anisocytosis 1+; Hypochromasia 1+
[2024-02-06 10:04] LABS: Poikilocytosis 1+; Schistocytes None Seen
[2024-02-06 10:05] LABS: Platelet Estimate Slightly Decreased (Adequate)
[2024-02-06 11:06] LABS: INR 1.1; Prothrombin Time 14.4 Seconds (11.1-14.7)
[2024-02-06 11:15] LABS: IFOB Positive Control Positive; Immunochemical Fecal Occult Bl Negative (N)
[2024-02-06 12:33] LABS: Glucose Point of Care 105 mg/dl (65-105)
[2024-02-06] MEDS: ALTEPLASE 2 MG VIAL (CATHFLO) IV PUSH (14:36)
[2024-02-06 16:25] LABS: Pleural fluid source Pleural fluid; pH Pleural Fluid > 7.500 (7.210-7.500)
[2024-02-06 16:26] LABS: Color Pleural Fluid Yellow (Colorless)
[2024-02-06 16:27] LABS: Appearance Pleural Fluid Hazy (Clear); Nucleated Cell Pleural Fluid 782 /uL (0-1000); RBC Pleural Fluid 5000 /uL (0-10000)
[2024-02-06 16:43] LABS: Lymphocytes Pleural Fluid 39 %; Macrophages Pleural Fluid 28 %; Mesothelial Cells Pleural Flui 18 %; Neutrophils Pleural Fluid 15 % (0-25)
[2024-02-06 17:22] LABS: Glucose Point of Care 86 mg/dl (65-105)
[2024-02-06] MEDS: TUBING, BLOOD PLUM PUMP TUBING 1 EACH XX (18:03)
[2024-02-06] MEDS: SODIUM CHLORIDE 0.9% IV 250 ML 30 ML IV CONT (18:03)
[2024-02-06 20:27] LABS: Glucose Point of Care 118 mg/dl (65-105)
[2024-02-06 21:03] LABS: Vancomycin Trough 11.3 ug/mL (10.0-20.0)
[2024-02-06] MEDS: SODIUM CHLORIDE 0.9% IV 1,000 ML 75 ML IV CONT (22:12)
[2024-02-06] MEDS: VANCOMYCIN 1,500 MG/NS 500 ML 1,500 MG/500 ML BAG 250 MG IVPB (22:12)
[2024-02-07] VITALS (11 sets, daily range): BP systolic 111–151; BP diastolic 55–69; PULSE 64–84; RESP 14–19; TEMP 36.4–37.3; O2SAT 93–99
[2024-02-07] MEDS: SODIUM CHLOR 3% 15 ML NEB (RESPIRATORY THERAPY) 6 ML INHALATION (05:14)
[2024-02-07] MEDS: CENTRAL LINE FLUSH 10 ML IV PUSH ×3 (05:15→21:54)
[2024-02-07 05:52] LABS: Basophils Absolute Auto 0.1 K/mm3 (0.0-0.1); Basophils Percent Auto 0.9 % (0.2-1.2); Eosinophils Absolute Auto 0.1 K/mm3 (0-0.3); Eosinophils Percent Auto 0.9 % (0-4.4); Hematocrit 27.8 % (42.0-52.0); Hemoglobin 8.7 g/dL (14.0-18.0); Immature Granulocyte Absolute 0.78 K/mm3 (0.00-0.031); Immature Granulocyte Percent A 8.1 % (0-0.5); Lymphocytes Absolute Auto 0.75 K/mm3 (0.9-3.2); Lymphocytes Percent Auto 7.8 % (18.3-44.2); Mean Corpuscular HGB Conc 31.3 g/dl (32-36); Mean Corpuscular Hemoglobin 28.1 pg (26-34); Mean Corpuscular Volume 89.7 fl (80-100); Mean Platelet Volume 8.5 fl (7.4-10.4); Monocytes Absolute Auto 1.1 K/mm3 (0.1-0.6); Monocytes Percent Auto 11.6 % (2.6-8.5); Neutrophils Absolute Auto 6.8 K/mm3 (1.3-6.7); Neutrophils Percent Auto 70.7 % (45.5-73.1); Nucleated Red Blood Cells Perc 0.5 % (0.0-0.2); Platelet Count Result 225 k/mm3 (150-375); Red Cell Distribution Width 14.7 % (11.5-14.5); White Blood Count 9.7 K/mm3 (4.5-10.0)
[2024-02-07 05:57] LABS: Alanine Aminotransferase 16 U/L (6-50); Albumin Level 2.9 g/dL (3.5-5.1); Alkaline Phosphatase 82 U/L (38-126); Anion Gap 6 mmol/L (4-12); Aspartate Amino Transferase 23 U/L (17-59); Bilirubin,Total 0.4 mg/dL (0.2-1.3); Blood Urea Nitrogen 3 mg/dL (9-20); Calcium 8.2 mg/dL (8.4-10.2); Carbon Dioxide 26 mmol/L (22-30); Chloride 105 mmol/L (98-107); Estimated CRCL calculation 77 ml/min; Estimated Glomerular Filt Rate > 60; Glucose 94 mg/dL (65-110); Potassium 3.2 mmol/L (3.4-5.0); Sodium 137 mmol/L (137-145)
[2024-02-07 05:59] LABS: Anisocytosis 1+; Hypochromasia 1+; Platelet Estimate Adequate (Adequate); Poikilocytosis 1+
[2024-02-07 06:00] LABS: Burr Cells 1+; Ovalocytes 1+; Schistocytes None Seen
[2024-02-07] MEDS: CEFEPIME 2 GM/NS 50 ML 2 GM/50 ML BAG IVPB ×3 (06:23→21:48)
[2024-02-07 08:06] LABS: Glucose Point of Care 100 mg/dl (65-105)
[2024-02-07] MEDS: POTASSIUM CHLORIDE 20 MEQ PACKET (FOR LIQUID) 40 MEQ PO (09:12)
[2024-02-07] MEDS: POTASSIUM CHLORIDE 10 MEQ ER TABLET PO ×2 (09:13→16:56)
[2024-02-07] MEDS: FILGRASTIM-SNDZ 300 MCG/0.5 ML SYRINGE SUB-Q (09:13)
[2024-02-07] MEDS: MIDODRINE HCL 2.5 MG TABLET 5 MG PO ×3 (09:14→16:56)
[2024-02-07] MEDS: PANTOPRAZOLE 40 MG TABLET PO ×2 (09:14→21:48)
[2024-02-07] MEDS: VANCOMYCIN 1,500 MG/NS 500 ML 1,500 MG/500 ML BAG 250 MG IVPB (09:14)
--- NOTE | 2024-02-07 09:36 | PM.IMPN ---
Progress Note: A&P Assessment and Plan (1) Syncope: Qualifiers: Syncope type: unspecified Qualified Code(s): R55 - Syncope and collapse Code(s): R55 - Syncope and collapse Status: Acute Assessment and Plan: Possible etiology dehydration causing orthostatic hypotension vs anemia vs infection vs other - Hgb 7.0 on am labs - EKG, initial: Sinus rhythm, baseline artifact, normal EKG. - CXR: Small left pleural effusion with associated atelectasis versus less likely pneumonia. - Chest CT: Wall thickening of the distal esophagus, compatible with esophageal carcinoma. Degree of wall thickening is probably minimally improved from prior exam Moderate left pleural effusion with left basilar atelectatic change. Mild emphysema. Focci-ur-mrzatucu hiatal hernia. Mild mediastinal lymphadenopathy, as noted above, probably minimally improved in some areas as compared to prior exam. - Troponin x2 negative - UA negative for infection - Viral PCR negative - Orthostatic vital signs remain positive post IV fluid bolus in the ED, started on maintenance fluids. Started on midodrine 5 mg TID. Patient denies dizziness/lightheadedness with position changes. Educated on making slow position changes. - Orthostatic vital signs: Sitting BP 134/64 HR 64, Standing BP 117/57 HR 69, Supine BP 129/67 HR 77. (2) Pleural effusion: Code(s): J90 - Pleural effusion, not elsewhere classified Status: Acute Assessment and Plan: - WBC has improved to 9.7 on am labs - Blood cultures 02/02: NGTD - CXR: Small left pleural effusion with associated atelectasis versus less likely pneumonia. - Chest CT: Wall thickening of the distal esophagus, compatible with esophageal carcinoma. Degree of wall thickening is probably minimally improved from prior exam Moderate left pleural effusion with left basilar atelectatic change. Mild emphysema. Toxfy-ze-bswkkfir hiatal hernia. Mild mediastinal lymphadenopathy, as noted above, probably minimally improved in some areas as compared to prior exam. - oncology consulted, awaiting formal recs. Per discussion between the ED provider and on-call oncologist, administer 1 dose of vancomycin and cefepime and observe overnight. 02/04: Discussed patient with oncology, Dr. Neal Douglas. Due to patients pleural effusion, neutropenia, and low grade fever will continue the vanc and cefe at this time. If blood cultures remain NGTD may be able to transition to orals tomorrow for continued treatment. 02/05: Patient developed a true fever of 100.4 overnight. New blood cultures drawn. Prior blood cultures remain NGTD. Diagnostic thoracentesis ordered. Remains on vanc and cefe. 02/06: WBC 9.7. Continue Cefepime 2 gm IVPB q 8. Stop Vancomycin. Blood cultures no growth to date. Pleural fluid gram stain moderate WBC's and no organisms seen. Afebrile. (3) Neutropenia: Qualifiers: Neutropenia type: secondary to cancer chemotherapy Qualified Code(s): D70.1 - Agranulocytosis secondary to cancer chemotherapy; T45.1X5A - Adverse effect of antineoplastic and immunosuppressive drugs, initial encounter Code(s): D70.9 - Neutropenia, unspecified Status: Acute Assessment and Plan: WBC 0.5, HGB 7.8, platelet count 111. 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 - Chest CT ordered to further rule out an underlying pneumonia - monitor temp in BP, afebrile today-97.7F. - reverse isolation - oncology consulted, awaiting formal recs. Per discussion between the ED provider and on-call oncologist, administer 1 dose of vancomycin and cefepime and observe overnight. Monitor blood pressure. Entered orders for 3 days of filgrastim. (4) Anemia: Qualifiers: Anemia type: unspecified type Qualified Code(s): D64.9 - Anemia, unspecified Code(s): D64.9 - Anemia, unspecified Status: Chronic Assessment and Plan: Hgb 7.8 on admission , previously 9.6 on 01/22/2024. Denies hematuria, hematemesis, hematochezia, melena. No signs of active bleeding. - Hgb 8.7 on am labs. Patient received 1 unit of PRBC's yesterday. - Given epogen 10,000 units subq x1 due to known pancytopenia on 02/03 - discussed with oncology and they want patient to recieve a unit of pRBC for the current hgb. pRBC x1 ordered. - previous history of HUGO, currently undergoing chemotherapy with subsequent pancytopenia/neutropenia - transfuse if less than 7 - monitor (5) Diabetes type 2, controlled: Qualifiers: Diabetes mellitus complication status: without complication Diabetes mellitus snf insulin use: without intermediate project manager use Qualified Code(s): E11.9 - Type 2 diabetes mellitus without complications Code(s): E11.9 - Type 2 diabetes mellitus without complications Status: Chronic Assessment and Plan: - hypoglycemia protocol - POC blood glucose ACHS - no home medications - correct regimen ordered - low dose TIDWM, based off TDD - A1C 5.8 (6) Hypokalemia: Code(s): E87.6 - Hypokalemia Status: Acute Assessment and Plan: - Potassium 3.2. - Potassium Chloride 40 meq PO x1 given. - Monitor labs. (7) Nausea: Code(s): R11.0 - Nausea Status: Acute Assessment and Plan: - Added Ondansetron 4 mg ivp q 6 PRN. (8) DORIS (obstructive sleep apnea): Code(s): G47.33 - Obstructive sleep apnea (adult) (pediatric) Status: Acute Assessment and Plan: - continue CPAP Plan Diet: Regular GI Prophylaxis: Not currently indicated DVT Prophylaxis: SCDs Lines: Peripheral Code Status: Full code Subjective Date/time seen: 02/07/24 09:36 Interval history: Patient denies chest pain, palpitations, shortness of breath, headache, or dizziness. Patient reports nausea intermittent. Review of Systems Review of Systems: All systems reviewed & are unremarkable except as noted in HPI and below Exam Const: General: comfortable and no acute distress Resp: Effort & Inspection: normal respiratory effort Auscultation: clear to auscultation bilaterally Cardio: Rate: regular rate Rhythm: regular rhythm GI: GI Palp: Yes Soft to palpation Auscultation: normal bowel sounds Skin: General skin exam: no rashes or lesions noted Neuro: Speech: normal speech Extrem: General: normal to inspection Psych: Mental Status: mental status grossly normal Affect: normal affect Objective Data Vital Signs Vital Signs: Vital Signs - 24 hr 02/06/24 16:00 02/06/24 18:10 02/06/24 18:25 Temperature 98 F 97.7 F 97.6 F Pulse Rate 74 74 72 Respiratory Rate 17 16 16 Blood Pressure 136/72 133/64 125/56 L Pulse Oximetry 96 96 97 Oxygen Delivery 02/06/24 19:25 02/06/24 19:38 02/06/24 19:40 Temperature 98.6 F 98.6 F 98.7 F Pulse Rate 75 75 77 Respiratory Rate 18 18 18 Blood Pressure 150/72 H 150/72 H 153/71 H Pulse Oximetry 97 97 98 Oxygen Delivery 02/06/24 19:42 02/06/24 20:25 02/06/24 21:46 Temperature 98.8 F 99.3 F 98.7 F Pulse Rate 81 68 73 Respiratory Rate 18 18 18 Blood Pressure 136/68 168/79 H 154/66 H Pulse Oximetry 98 97 96 Oxygen Delivery 02/06/24 20:00 02/07/24 00:00 02/07/24 05:19 Temperature 99.0 F Pulse Rate 73 69 Respiratory Rate 18 19 Blood Pressure 145/55 H Pulse Oximetry 97 Oxygen Delivery Room Air 02/07/24 05:28 02/07/24 06:11 Temperature 97.6 F Pulse Rate 75 78 Respiratory Rate 19 18 Blood Pressure 111/65 Pulse Oximetry 93 Oxygen Delivery Intake/Output Intake/Output: Intake & Output 02/04/24 02/05/24 02/06/24 02/07/24 23:59 23:59 23:59 23:59 Intake Total 3736.2 2702 615 Output Total 700 Balance 3736.2 2002 615 Meds/Results Medications: Active Medications Generic Name Dose Route Start Last Admin Trade Name Freq PRN Reason Stop Dose Admin Acetaminophen 650 mg 02/03/24 13:12 Acetaminophen 325 Mg Tablet PO Q4H PRN Mild Pain (1-3) or Fever Alteplase, Recombinant 2 mg 02/06/24 13:29 02/06/24 14:36 Alteplase 2 Mg Vial (Cathflo) IV PUSH 2 mg ONCE PRN Administration Line Occlusion Dextrose 12.5 gm 02/03/24 13:29 Dextrose 50% 25 Gm/50 Ml Syringe IV PUSH PRN PRN Hypoglycemia Protocol Filgrastim-Sndz 300 mcg 02/04/24 11:00 02/07/24 09:13 Filgrastim-Sndz 300 Mcg/0.5 Ml Syringe SUB-Q 02/07/24 23:59 300 mcg DAILY ROXANN Administration Glucagon 1 mg 02/03/24 13:29 Glucagon For Inj 1 Mg Vial IM PRN PRN Hypoglycemia Protocol Glucose 15 gm 02/03/24 13:29 Glucose Oral Gel 15 Gm Of Glucse In 37.5 Gm Tube PO PRN PRN Hypoglycemia Protocol Heparin Sodium (Beef Lung) 50 units 02/04/24 09:00 02/07/24 09:14 Heparin Flush 50 Units/5 Ml Syringe IV PUSH 50 units QAM ROXANN Administration Heparin Sodium (Beef Lung) 50 units 02/03/24 11:04 Heparin Flush 50 Units/5 Ml Syringe IV PUSH PRN PRN after intermittent infusion Heparin Sodium (Beef Lung) 50 units 02/03/24 11:04 02/07/24 06:00 Heparin Flush 50 Units/5 Ml Syringe IV PUSH 50 units PRN PRN Administration after blood draws Heparin Sodium (Porcine) 500 units 02/03/24 11:04 Heparin Sodium Lock Flush 500 Units/5 Ml Syringe IV PUSH PRN PRN see comments below Dextrose 1,000 mls @ 100 mls/hr 02/03/24 13:29 Dextrose 5% 1,000 Ml IVPB PRN PRN Hypoglycemia Protocol Sodium Chloride 1,000 mls @ 75 mls/hr 02/04/24 13:55 02/06/24 23:24 Normal Saline Iv IV CONT Not Given .[id number] ROXANN Cefepime HCl 2 gm in 50 mls @ 100 mls/hr 02/05/24 08:20 02/07/24 06:23 Maxipime 2 Gm/Ns 50 Ml IVPB 100 mls/hr Q8HR ROXANN Administration Vancomycin HCl 1,500 mg in 500 mls @ 250 mls/hr 02/06/24 22:00 02/07/24 09:14 Vancomycin 1,500 Mg/Ns 500 Ml IVPB 250 mls/hr Q12H ROXANN Administration Insulin Aspart 2 - 5 units 02/03/24 17:00 02/07/24 08:08 Insulin Aspart (*Bkc) 100 Units/Ml SUB-Q Not Given TIDWM ROXANN Protocol Lorazepam 0.5 mg 02/03/24 16:18 02/05/24 20:46 Lorazepam (*Crx) 0.5 Mg Tablet PO 0.5 mg BID PRN Administration anxiety Midodrine 5 mg 02/05/24 13:00 02/07/24 09:14 Midodrine Hcl 2.5 Mg Tablet PO 5 mg TID ROXANN Administration Pantoprazole Sodium 40 mg 02/03/24 21:00 02/07/24 09:14 Pantoprazole 40 Mg Tablet PO 40 mg Q12HR ROXANN Administration Polyethylene Glycol 17 gm 02/03/24 15:33 Polyethylene Glycol 3350 17 Gm Powd.Pack PO QAM PRN Constipation Potassium Chloride 10 meq 02/03/24 17:00 02/07/24 09:13 Potassium Chloride 10 Meq Er Tablet PO 10 meq BIDWM ROXANN Administration Sodium Chloride 10 ml 02/03/24 14:00 02/07/24 05:15 Central Line Flush IV PUSH 10 ml Q8HR ROXANN Administration Sodium Chloride 6 ml 02/07/24 05:00 02/07/24 05:14 Sodium Chlor 3% 15 Ml Neb (Respiratory Therapy) INHALATION 02/09/24 05:01 6 ml DAILY@0500 ROXANN Administration Radiology Results: ITS Impressions Head CT 02/03/24 11:06 IMPRESSION: 1. Normal aging brain. No acute intracranial process. 2. Fluid/mucus nearly filling the right sphenoid sinus which can be seen with acute sinusitis Chest CT 02/05/24 06:50 Impression: Wall thickening of the distal esophagus, compatible with esophageal carcinoma. Degree of wall thickening is probably minimally improved from prior exam. Moderate left pleural effusion with left basilar atelectatic change. Mild emphysema. Tzjyh-za-[id number] hiatal hernia. Mild mediastinal lymphadenopathy, as noted above, probably minimally improved in some areas as compared to prior exam. Chest X-Ray 02/06/24 15:38 IMPRESSION: 1. No acute cardiopulmonary disease. Thoracentesis Ultrasound 02/06/24 15:49 IMPRESSION: 1. Successful ultrasound-guided thoracentesis yielding 700 mL of dudley-colored fluid. Labs Labs: Laboratory Results - last 24 hr 02/06/24 02/06/24 02/06/24 06:28 10:32 10:50 WBC 3.3 L RBC 2.48 L Hgb 7.0 L Hct 22.1 L MCV 89.1 MCH 28.2 MCHC 31.7 L RDW 14.6 H Plt Count 151 MPV 9.0 Immature Gran % (Auto) 8.4 H Neut % (Auto) 52.3 Lymph % (Auto) 19.2 [place] % (Auto) 17.7 H Eos % (Auto) 1.5 Baso % (Auto) 0.9 Lymph # (Auto) 0.64 L [place] # (Auto) 0.6 Eos # (Auto) 0.1 Baso # (Auto) 0.0 Abs Immat Gran (auto) 0.28 H Absolute Neuts (auto) 1.8 Absolute Nucleated RBC 0.020 H Total Counted 100 Neutrophils % (Manual) 43 L Band Neutrophils % 9 H Lymphocytes % (Manual) 29 Monocytes % (Manual) 18 H Eosinophils % (Manual) 1 Basophils % (Manual) 0 Nucleated RBC % 0.6 H Abs Neuts (Manual) 1.71 Abs Lymphs (Manual) 0.95 L Abs Monocytes (Manual) 0.59 Absolute Eos (Manual) 0.03 Abs Basophils (Manual) 0.00 Platelet Estimate Slightly decreased Large Platelets Present Hypochromasia 1+ Poikilocytosis 1+ Anisocytosis 1+ Ovalocytes [place]ancie Cells Schistocytes None seen PT 14.4 INR 1.1 Sodium Potassium Chloride Carbon Dioxide Anion Gap BUN Creatinine Estim Creat Clear Calc Estimated GFR Glucose POC Capillary Glucose Calcium Total Bilirubin AST ALT Alkaline Phosphatase Total Protein Albumin Pleural Fluid Source Pleural Color Pleural Appearance Pleural pH Pleural RBC Pleural Nuc Cells Pleural Neutrophils Pleural Lymphocytes Pleural Macrophages Pleural Mesothelial Stl Occult Blood (IFOB) Negative Vancomycin Trough Blood Type Antibody Screen Crossmatch 02/06/24 02/06/24 02/06/24 12:23 15:13 15:54 WBC RBC Hgb Hct MCV MCH MCHC RDW Plt Count MPV Immature Gran % (Auto) Neut % (Auto) Lymph % (Auto) [place] % (Auto) Eos % (Auto) Baso % (Auto) Lymph # (Auto) [place] # (Auto) Eos # (Auto) Baso # (Auto) Abs Immat Gran (auto) Absolute Neuts (auto) Absolute Nucleated RBC Total Counted Neutrophils % (Manual) Band Neutrophils % Lymphocytes % (Manual) Monocytes % (Manual) Eosinophils % (Manual) Basophils % (Manual) Nucleated RBC % Abs Neuts (Manual) Abs Lymphs (Manual) Abs Monocytes (Manual) Absolute Eos (Manual) Abs Basophils (Manual) Platelet Estimate Large Platelets Hypochromasia Poikilocytosis Anisocytosis Ovalocytes [place] Cells Schistocytes PT INR Sodium Potassium Chloride Carbon Dioxide Anion Gap BUN Creatinine Estim Creat Clear Calc Estimated GFR Glucose POC Capillary Glucose 105 Calcium Total Bilirubin AST ALT Alkaline Phosphatase Total Protein Albumin Pleural Fluid Source Pleural fluid Pleural Color Yellow Pleural Appearance Hazy Pleural pH > 7.500 H Pleural RBC 5000 Pleural Nuc Cells 782 Pleural Neutrophils 15 Pleural Lymphocytes 39 Pleural Macrophages 28 Pleural Mesothelial 18 Stl Occult Blood (IFOB) Vancomycin Trough Blood Type A Negative Antibody Screen Negative Crossmatch See Detail 02/06/24 02/06/24 02/06/24 17:12 20:14 20:20 WBC RBC Hgb Hct MCV MCH MCHC RDW Plt Count MPV Immature Gran % (Auto) Neut % (Auto) Lymph % (Auto) [place] % (Auto) Eos % (Auto) Baso % (Auto) Lymph # (Auto) [place] # (Auto) Eos # (Auto) Baso # (Auto) Abs Immat Gran (auto) Absolute Neuts (auto) Absolute Nucleated RBC Total Counted Neutrophils % (Manual) Band Neutrophils % Lymphocytes % (Manual) Monocytes % (Manual) Eosinophils % (Manual) Basophils % (Manual) Nucleated RBC % Abs Neuts (Manual) Abs Lymphs (Manual) Abs Monocytes (Manual) Absolute Eos (Manual) Abs Basophils (Manual) Platelet Estimate Large Platelets Hypochromasia Poikilocytosis Anisocytosis Ovalocytes [place] Cells Schistocytes PT INR Sodium Potassium Chloride Carbon Dioxide Anion Gap BUN Creatinine Estim Creat Clear Calc Estimated GFR Glucose POC Capillary Glucose 86 118 H Calcium Total Bilirubin AST ALT Alkaline Phosphatase Total Protein Albumin Pleural Fluid Source Pleural Color Pleural Appearance Pleural pH Pleural RBC Pleural Nuc Cells Pleural Neutrophils Pleural Lymphocytes Pleural Macrophages Pleural Mesothelial Stl Occult Blood (IFOB) Vancomycin Trough 11.3 Blood Type Antibody Screen Crossmatch 02/07/24 02/07/24 05:41 08:01 WBC 9.7 RBC 3.10 L Hgb 8.7 L Hct 27.8 L MCV 89.7 MCH 28.1 MCHC 31.3 L RDW 14.7 H Plt Count 225 MPV 8.5 Immature Gran % (Auto) 8.1 H Neut % (Auto) 70.7 Lymph % (Auto) 7.8 L [place] % (Auto) 11.6 H Eos % (Auto) 0.9 Baso % (Auto) 0.9 Lymph # (Auto) 0.75 L [place] # (Auto) 1.1 H Eos # (Auto) 0.1 Baso # (Auto) 0.1 Abs Immat Gran (auto) 0.78 H Absolute Neuts (auto) 6.8 H Absolute Nucleated RBC 0.050 H Total Counted Neutrophils % (Manual) Band Neutrophils % Lymphocytes % (Manual) Monocytes % (Manual) Eosinophils % (Manual) Basophils % (Manual) Nucleated RBC % 0.5 H Abs Neuts (Manual) Abs Lymphs (Manual) Abs Monocytes (Manual) Absolute Eos (Manual) Abs Basophils (Manual) Platelet Estimate Adequate Large Platelets Hypochromasia 1+ Poikilocytosis 1+ Anisocytosis 1+ Ovalocytes 1+ Nancie Cells 1+ Schistocytes None seen PT INR Sodium 137 Potassium 3.2 L Chloride 105 Carbon Dioxide 26 Anion Gap 6 BUN 3 L Creatinine 0.70 Estim Creat Clear Calc 77 Estimated GFR > 60 Glucose 94 POC Capillary Glucose 100 Calcium 8.2 L Total Bilirubin 0.4 AST 23 ALT 16 Alkaline Phosphatase 82 Total Protein 7.0 Albumin 2.9 L Pleural Fluid Source Pleural Color Pleural Appearance Pleural pH Pleural RBC Pleural Nuc Cells Pleural Neutrophils Pleural Lymphocytes Pleural Macrophages Pleural Mesothelial Stl Occult Blood (IFOB) Vancomycin Trough Blood Type Antibody Screen Crossmatch Quality VTE Prophylaxis VTE prophylaxis: mechanical ordered
[2024-02-07 11:59] LABS: Glucose Point of Care 118 mg/dl (65-105)
[2024-02-07] MEDS: ONDANSETRON INJ 4 MG/2 ML VIAL IV PUSH (12:13)
[2024-02-07 16:44] LABS: Glucose Point of Care 112 mg/dl (65-105)
[2024-02-07] MEDS: SODIUM CHLORIDE 0.9% IV 1,000 ML 75 ML IV CONT (16:56)
--- NOTE | 2024-02-07 18:19 | P.PNONC_ITS ---
Progress Note: A/P (1) Small cell lung cancer Code(s): C34.90 - Malignant neoplasm of unspecified part of unspecified bronchus or lung Status: Acute - Additional Plan This is a 73-year-old male with- Metastatic small cell cancer- The patient was diagnosed with metastatic small cell carcinoma. Patient was having dysphagia since summer 2023 and underwent EGD on 11/22/23 as outpatient. A large friable mass was seen in mid and distal esophagus measuring 9cm in length. Biopsy pathology was consistent with small cell carcinoma. A staging CT chest/abd/pelvis done 11/24/23 showed a mass in the mid and distal esophagus with metastatic lymphadenopathy including mediastinal lymphadenopathy, metastatic epigastric and gastrohepatic lymphadenopathy, and retroperitoneal lymphadenopathy. He also had several liver lesions measuring up to 13 mm in size and has previously had a minimal bilateral pleural effusion. PET scan on 12/22/2023 which showed wall thickening and prominent increased FDG uptake at the distal third of the esophagus consistent with reported primary esophageal cancer with FDG avid metastatic lymphadenopathy at the lower neck, mediastinum and upper abdomen along with 4 FDG avid avid liver lesions also consistent with metastatic disease. Brain MRI on 12/24/2023 showed no evidence of metastatic disease. Patient was seen by Dr. Ambrose and was started on cycle 1 of Carboplatin, Etoposide and Atezolizumab 01/22/24-01/24/24. Patient is now hospitalized for orthostasis and syncopal episode. Admission CBC shows WBC of 0.5 and Hemoglobin 7.8g/dL. Blood cultures from admission with no growth and repeat cultures from yesterday with no growth. Started on filgastrim and received 300mcg SC dose on 02/04/24, 02/05/24 and 02/06/24. WBC is 9.7 with ANC of 8.1. IV antibiotics can be transitioned to few days of oral levofloxacin to finish 7 day course of antibiotics. He can be discharged home tomorrow. He should follow with Dr. Ambrose in next few weeks. - Time Spent With Patient Total time spent is greater than 50% in coordination of care (as documented) at patient's floor/unit and/or counseling patient: 25 - 35 minutes Subjective Interval history: Patient seen at bedside resting well. Patient states that he is feeling better since the time of admission. There has been no syncopal episode during hospitalization. He is eating better and remains afebrile Review of Systems - Review of Systems Patient feels better. No dizziness, lightheadedness. States he feel little nauseous today. Denies dysphagia. Denies diarrhea. No cough or dyspnea. Rest of 12 point review of system is negative. - Neurologic Reports weakness Exam - Constitutional no acute distress - Routine HEENT Exam Head: Present: atraumatic - Routine Neck Exam Present: full ROM - Routine Respiratory Exam Present: CTAB - Routine Cardiovascular Exam Cardiovascular: Present: RRR, S1, S2 - Routine Abdominal Exam Present: normal bowel sounds - Routine Extremities Exam Present: full ROM PN: Objective Data - Labs CBC & Chem 7: 02/07/24 05:41 02/07/24 05:41 Labs: Laboratory Results - last 24 hr 02/06/24 02/06/24 02/06/24 15:54 20:14 20:20 WBC RBC Hgb Hct MCV MCH MCHC RDW Plt Count MPV Immature Gran % (Auto) Neut % (Auto) Lymph % (Auto) [place] % (Auto) Eos % (Auto) Baso % (Auto) Lymph # (Auto) [place] # (Auto) Eos # (Auto) Baso # (Auto) Abs Immat Gran (auto) Absolute Neuts (auto) Absolute Nucleated RBC Nucleated RBC % Platelet Estimate Hypochromasia Poikilocytosis Anisocytosis Ovalocytes Nancie Cells Schistocytes Sodium Potassium Chloride Carbon Dioxide Anion Gap BUN Creatinine Estim Creat Clear Calc Estimated GFR Glucose POC Capillary Glucose 118 H Calcium Total Bilirubin AST ALT Alkaline Phosphatase Total Protein Albumin Vancomycin Trough 11.3 Crossmatch See Detail 02/07/24 02/07/24 02/07/24 05:41 08:01 11:45 WBC 9.7 RBC 3.10 L Hgb 8.7 L Hct 27.8 L MCV 89.7 MCH 28.1 MCHC 31.3 L RDW 14.7 H Plt Count 225 MPV 8.5 Immature Gran % (Auto) 8.1 H Neut % (Auto) 70.7 Lymph % (Auto) 7.8 L [place] % (Auto) 11.6 H Eos % (Auto) 0.9 Baso % (Auto) 0.9 Lymph # (Auto) 0.75 L [place] # (Auto) 1.1 H Eos # (Auto) 0.1 Baso # (Auto) 0.1 Abs Immat Gran (auto) 0.78 H Absolute Neuts (auto) 6.8 H Absolute Nucleated RBC 0.050 H Nucleated RBC % 0.5 H Platelet Estimate Adequate Hypochromasia 1+ Poikilocytosis 1+ Anisocytosis 1+ Ovalocytes 1+ [place] Cells 1+ Schistocytes None seen Sodium 137 Potassium 3.2 L Chloride 105 Carbon Dioxide 26 Anion Gap 6 BUN 3 L Creatinine 0.70 Estim Creat Clear Calc 77 Estimated GFR > 60 Glucose 94 POC Capillary Glucose 100 118 H Calcium 8.2 L Total Bilirubin 0.4 AST 23 ALT 16 Alkaline Phosphatase 82 Total Protein 7.0 Albumin 2.9 L Vancomycin Trough Crossmatch 02/07/24 16:37 WBC RBC Hgb Hct MCV MCH MCHC RDW Plt Count MPV Immature Gran % (Auto) Neut % (Auto) Lymph % (Auto) [place] % (Auto) Eos % (Auto) Baso % (Auto) Lymph # (Auto) [place] # (Auto) Eos # (Auto) Baso # (Auto) Abs Immat Gran (auto) Absolute Neuts (auto) Absolute Nucleated RBC Nucleated RBC % Platelet Estimate Hypochromasia Poikilocytosis Anisocytosis Ovalocytes [place] Cells Schistocytes Sodium Potassium Chloride Carbon Dioxide Anion Gap BUN Creatinine Estim Creat Clear Calc Estimated GFR Glucose POC Capillary Glucose 112 H Calcium Total Bilirubin AST ALT Alkaline Phosphatase Total Protein Albumin Vancomycin Trough Crossmatch
[2024-02-07 21:14] LABS: Glucose Point of Care 120 mg/dl (65-105)
[2024-02-08 04:37] VITALS: BP 151/75; PULSE 66; RESP 12; TEMP 36.2; O2SAT 98
[2024-02-08] MEDS: CEFEPIME 2 GM/NS 50 ML 2 GM/50 ML BAG IVPB (05:33)
[2024-02-08] MEDS: CENTRAL LINE FLUSH 10 ML IV PUSH (05:33)
[2024-02-08 06:03] LABS: Basophils Percent Auto 0.1 % (0.2-1.2); Eosinophils Absolute Auto 0.1 K/mm3 (0-0.3); Eosinophils Percent Auto 0.5 % (0-4.4); Hematocrit 27.6 % (42.0-52.0); Hemoglobin 8.6 g/dL (14.0-18.0); Immature Granulocyte Absolute 1.76 K/mm3 (0.00-0.031); Immature Granulocyte Percent A 12.3 % (0-0.5); Lymphocytes Absolute Auto 0.81 K/mm3 (0.9-3.2); Lymphocytes Percent Auto 5.6 % (18.3-44.2); Mean Corpuscular HGB Conc 31.2 g/dl (32-36); Mean Corpuscular Hemoglobin 28.2 pg (26-34); Mean Corpuscular Volume 90.5 fl (80-100); Mean Platelet Volume 8.7 fl (7.4-10.4); Monocytes Absolute Auto 1.6 K/mm3 (0.1-0.6); Monocytes Percent Auto 10.9 % (2.6-8.5); Neutrophils Absolute Auto 10.1 K/mm3 (1.3-6.7); Neutrophils Percent Auto 70.6 % (45.5-73.1); Nucleated Red Blood Cells Perc 0.5 % (0.0-0.2); Platelet Count Result 256 k/mm3 (150-375); Red Blood Count 3.05 M/mm3 (4.6-6.20); Red Cell Distribution Width 15.1 % (11.5-14.5); White Blood Count 14.4 K/mm3 (4.5-10.0)
[2024-02-08 06:17] LABS: Alanine Aminotransferase 14 U/L (6-50); Albumin Level 2.8 g/dL (3.5-5.1); Alkaline Phosphatase 105 U/L (38-126); Anion Gap 7 mmol/L (4-12); Aspartate Amino Transferase 21 U/L (17-59); Bilirubin,Total 0.2 mg/dL (0.2-1.3); Blood Urea Nitrogen 4 mg/dL (9-20); Calcium 8.1 mg/dL (8.4-10.2); Carbon Dioxide 27 mmol/L (22-30); Chloride 104 mmol/L (98-107); Estimated CRCL calculation 61 ml/min; Estimated Glomerular Filt Rate > 60; Glucose 100 mg/dL (65-110); Potassium 3.2 mmol/L (3.4-5.0); Sodium 138 mmol/L (137-145)
[2024-02-08 06:50] LABS: Anisocytosis 1+; Hypochromasia 1+; Ovalocytes 1+; Platelet Estimate Adequate (Adequate); Poikilocytosis 1+; Target Cells 1+
[2024-02-08 06:51] LABS: Burr Cells 1+; Schistocytes None Seen
[2024-02-08 08:04] LABS: Glucose Point of Care 103 mg/dl (65-105)
[2024-02-08] MEDS: POTASSIUM CHLORIDE 10 MEQ ER TABLET PO (08:57)
[2024-02-08] MEDS: PANTOPRAZOLE 40 MG TABLET PO (08:58)
[2024-02-08] MEDS: POTASSIUM CHLORIDE 20 MEQ PACKET (FOR LIQUID) 40 MEQ PO (08:58)
[2024-02-08] MEDS: MIDODRINE HCL 2.5 MG TABLET 5 MG PO (08:59)
--- NOTE | 2024-02-08 10:03 | PM.DS ---
DS: Admitting Diagnosis Discharge Date 02/08/2024 Admitting Diagnosis Syncope DS: Discharge Diagnosis Discharge Diagnosis (1) Syncope: Qualifiers: Syncope type: unspecified Qualified Code(s): R55 - Syncope and collapse Code(s): R55 - Syncope and collapse Status: Acute (2) Small cell lung cancer: Code(s): C34.90 - Malignant neoplasm of unspecified part of unspecified bronchus or lung Status: Acute (3) Diabetes type 2, controlled: Qualifiers: Diabetes mellitus complication status: without complication Diabetes mellitus [facility] insulin use: without [facility] use Qualified Code(s): E11.9 - Type 2 diabetes mellitus without complications Code(s): E11.9 - Type 2 diabetes mellitus without complications Status: Chronic (4) Hypokalemia: Code(s): E87.6 - Hypokalemia Status: Acute (5) Neutropenia: Qualifiers: Neutropenia type: secondary to cancer chemotherapy Qualified Code(s): D70.1 - Agranulocytosis secondary to cancer chemotherapy; T45.1X5A - Adverse effect of antineoplastic and immunosuppressive drugs, initial encounter Code(s): D70.9 - Neutropenia, unspecified Status: Acute (6) Anemia: Qualifiers: Anemia type: unspecified type Qualified Code(s): D64.9 - Anemia, unspecified Code(s): D64.9 - Anemia, unspecified Status: Chronic DS: Summary Hospital Course Hospital Course: Patient admitted with syncope and collapse. Patient received 1 unit of blood during hospitalization. Patient was started on Midodrine 5 mg PO TID for orthostatic hypotension. Troponin negative x2. CXR: Small left pleural effusion with associated atelectasis versus less likely pneumonia. Patient received IV antibiotics and has transitioned to oral antibiotics to go home. UA negative for infection. Viral PCR negative. Oncology followed patient. Patient is followed outpatient by Dr. Ambrose and has his next appointment on Zvannf40/11/24. Patient Neutropenic on admission with WBC 0.5 and neutrophils 0.1, at discharge WBC 14.4 and neutrophils 10.1. Patient had an US guided paracentesis on 02/05 with 700 ml of dudley fluid removed. Head CT showed a normal aging brain, no acute intracranial process. Fluid/mucus filling the sphenoid sinus with can be seen with acute sinusitis. Blood cultures NGTD. Pleural fluid gram stain showed moderate WBC's and no organisms seen. Status at Discharge Functional status at discharge: independent ambulation Overall status at discharge: patient is progressing back to baseline Time Spent with Patient Time attestation: Total time spent providing and/or coordinating discharge services: Time spent: Greater than 30 minutes Exam Const: General: comfortable and no acute distress Resp: Effort & Inspection: normal respiratory effort Auscultation: clear to auscultation bilaterally Cardio: Rate: regular rate Rhythm: regular rhythm GI: GI Palp: Yes Soft to palpation Auscultation: normal bowel sounds Skin: General skin exam: no rashes or lesions noted Extrem: General: normal to inspection Psych: Affect: normal affect DS: Data Data Completed and Pending Completed studies during hospitalization: Pending at discharge 02/06/24 10:05 Cytology [PTH] Routine Labs on day of discharge: Labs from last 24 hours 02/08/24 02/08/24 02/07/24 08:00 05:38 20:18 WBC 14.4 H RBC 3.05 L Hgb 8.6 L Hct 27.6 L MCV 90.5 MCH 28.2 MCHC 31.2 L RDW 15.1 H Plt Count 256 MPV 8.7 Immature Gran % (Auto) 12.3 H Neut % (Auto) 70.6 Lymph % (Auto) 5.[address] [place] % (Auto) 10.9 H Eos % (Auto) 0.5 Baso % (Auto) 0.1 L Lymph # (Auto) 0.[address] [place] # (Auto) 1.6 H Eos # (Auto) 0.1 Baso # (Auto) 0.0 Abs Immat Gran (auto) 1.76 H Absolute Neuts (auto) 10.1 H Absolute Nucleated RBC 0.070 H Nucleated RBC % 0.5 H Platelet Estimate Adequate Hypochromasia 1+ Poikilocytosis 1+ Anisocytosis 1+ Target Cells 1+ Ovalocytes 1+ Nancie Cells 1+ Schistocytes None seen Sodium 138 Potassium 3.2 L Chloride 104 Carbon Dioxide 27 Anion Gap 7 BUN 4 L Creatinine 0.90 Estim Creat Clear Calc 61 Estimated GFR > 60 Glucose 100 POC Capillary Glucose 103 120 H Calcium 8.1 L Total Bilirubin 0.2 AST 21 ALT 14 Alkaline Phosphatase 105 Total Protein 6.0 L Albumin 2.8 L 02/07/24 02/07/24 16:37 11:45 WBC RBC Hgb Hct MCV MCH MCHC RDW Plt Count MPV Immature Gran % (Auto) Neut % (Auto) Lymph % (Auto) [place] % (Auto) Eos % (Auto) Baso % (Auto) Lymph # (Auto) [place] # (Auto) Eos # (Auto) Baso # (Auto) Abs Immat Gran (auto) Absolute Neuts (auto) Absolute Nucleated RBC Nucleated RBC % Platelet Estimate Hypochromasia Poikilocytosis Anisocytosis Target Cells Ovalocytes Nancie Cells Schistocytes Sodium Potassium Chloride Carbon Dioxide Anion Gap BUN Creatinine Estim Creat Clear Calc Estimated GFR Glucose POC Capillary Glucose 112 H 118 H Calcium Total Bilirubin AST ALT Alkaline Phosphatase Total Protein Albumin Preliminary micro results at discharge 02/06/24 15:13 Anaerobic Culture - Preliminary Pleural Fluid Aerobic Culture - Preliminary 02/06/24 09:56 Blood Culture - Preliminary Blood 02/06/24 09:58 Blood Culture - Preliminary Blood 02/03/24 13:29 Blood Culture - Preliminary Blood 02/03/24 13:29 Blood Culture - Preliminary Blood Discharge Plan Discharge Attending physician on discharge: Jatinder Jara Consulting providers: Reva Aquino Discharging Clinician: Johanna De Dios Anticipated Discharge Date/Time: 02/08/24 11:00 Patient Disposition: Home, Self-Care Activity: as tolerated Diet: as tolerated Discharge Instructions: Hold Midodrine if blood pressure >140/90. Avoid sick contacts. Good handwashing. Take all doses of antibiotics. Patient Instructions: Antibiotic Form, Midodrine (By mouth), Hypokalemia (DC), Hypotension (DC), Neutropenia (DC), Anemia (DC) Stand Alone Forms: General Discharge Information Follow-up/Referrals: Alex Ambrose MD [Physician] - 02/12/24 (Keep your scheduled appt) Daisy Christine APRN [Primary Care Provider] - 1 Week Discharge Medications: New midodrine 2.5 mg Tablet 5 mg PO TID Qty: 180 0RF levofloxacin 750 mg tablet 750 mg PO DAILY Qty: 3 0RF Rx Instructions: Start daily on 02/09/24 Continued potassium chloride 20 mEq Tablet Extended Release 10 meq PO BID pantoprazole 40 mg tablet,delayed release (DR/EC) 40 mg PO BID lorazepam [Ativan] 0.5 mg tablet 0.5 mg PO BID PRN (Reason: anxiety) Qty: 90 0RF Date of admission: 02/06/24 10:14 Primary Care Provider: Daisy Christine Admitting Provider: Francisco Villa Attending physician on admission: Isa Schrader Condition: Stable Hospitalist MIPS Heart Failure (Exclusion) Patient has history of Heart Transplant or Left Ventricular Assistive Device?: No IF YES, STOP HERE Heart Failure (Qualifier) Patient has current or prior documentation of LVEF less than or equal to 40%, or mod/servere depressed LVSF?: No IF NO, STOP HERE
[2024-02-08] MEDS: levoFLOXacin 750 MG TABLET PO (10:18)
[2024-02-08] MEDS: HEPARIN SODIUM LOCK FLUSH 500 UNITS/5 ML SYRINGE IV PUSH (10:55)
--- NOTE | 2024-02-13 08:15 | PC.NURSE ---
Blood cx x2 sets are negative.
[2024-02-13 15:28] LABS: Albumin Pleural Fluid 1.6 g/dL; Amylase, Pleural Fluid 23 U/L; Glucose Pleural Fluid 104 mg/dL; LDH Pleural Fluid 118 U/L; Total Protein Pleural Fluid 3.5 g/dL
== END 2024-02-08 11:08 | disposition home or self-care (01) | DRG 312 ==
LOC: ANHED 13:12 → ANH2MED 14:05
PROVIDERS: Internal Medicine; Student in an Organized Health Care Education/Training Program; Admitting Provider Internal Medicine; Emergency Provider Emergency Medicine; PCP Nurse Practitioner Family; Visit Provider Nurse Practitioner Family
DX: I95.1 Orthostatic hypotension (principal); C34.90 Malignant neoplasm of unspecified part of unspecified bronchus or lung; C78.89 Secondary malignant neoplasm of other digestive organs; D61.818 Other pancytopenia; J90 Pleural effusion, not elsewhere classified; F41.9 Anxiety disorder, unspecified; D70.1 Agranulocytosis secondary to cancer chemotherapy; D63.0 Anemia in neoplastic disease; T45.1X5A Adverse effect of antineoplastic and immunosuppressive drugs, initial encounter; E11.9 Type 2 diabetes mellitus without complications; E78.5 Hyperlipidemia, unspecified; G47.33 Obstructive sleep apnea (adult) (pediatric); I10 Essential (primary) hypertension; J01.30 Acute sphenoidal sinusitis, unspecified; K76.9 Liver disease, unspecified; K21.9 Gastro-esophageal reflux disease without esophagitis; N40.0 Benign prostatic hyperplasia without lower urinary tract symptoms; R59.1 Generalized enlarged lymph nodes; Z20.822 Contact with and (suspected) exposure to COVID-19; Z99.89 Dependence on other enabling machines and devices; Z87.891 Personal history of nicotine dependence
CPT/HCPCS: 32555; 36415; 36430; 70450; 71046; 71260; 80048; 80053; 80202; 81001; 82042; 82150; 82274; 82550; 82945; 82948; 83036; 83605; 83615; 83986; 84157; 84311; 84478; 84484; 85025; 85027; 85055; 85610; 85730; 86850; 86900; 86901; 86923; 87015; 87040; 87070; 87075; 87102; 87116; 87205; 87206; 87637; 87641; 88108; 88305; 89051; 93005; 94640; 96361; 96365; 96366; 96372; 96375; 99285; A9270; G0378; G0379; J0692; J1642; J2405; J2997; J3370; J7030; J7050; P9016; Q5101; Q5105; Q9967

== ENCOUNTER 2024-05-20 09:08 | Outpatient (CLI) | payer MEDICARE, SELFPAY ==
--- OUTSIDE RECORDS SUMMARY | 2024-05-20 11:52 | XMS_ITS | Clinical Summary ---
[facility] Address [address] [place] [address] Care Team Providers Care Ranch Hand Supervisor Name Role Phone Oleksandr Wilson MD Primary Care Provider [phone] Allergies No known active allergies Medications atorvastatin (LIPITOR) 40 mg tablet Take 1 Tablet by mouth daily. 4 Active carvediloL (COREG) 6.25 mg tablet Take 6.25 mg by mouth 2 times daily. Active LORazepam (ATIVAN) 0.5 mg tablet Take 0.5 mg by mouth 2 times daily as needed for Anxiety. Active omeprazole (PriLOSEC) 40 mg Capsule, Delayed Release(E.C.) Take 40 mg by mouth daily. 4 Active valsartan-hydro CHLOROthiazide (DIOVAN HCT) 320-12.5 mg tablet Take 1 Tablet by mouth daily. 4 Active loratadine (CLARITIN) 5 mg/5 mL solution Take 10 mg by mouth daily. Active potassium chloride (KLOR-CON) 10 mEq Extended Release tablet Take 1 Tablet (10 mEq) by mouth daily with breakfast. 30 Tablet 1 4 Active midodrine (PROAMATINE) 2.5 mg Tablet Take 2 Tablets by mouth 3 times daily. Patient is taking as need with at home bp checks at least three times a day. 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) (Primary Dx) 05/13/2024 Orders Only [facility] Oncology and Hematology [facility] [address] [place] [address] Alex Ambrose MD 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); Benign hypertension 05/06/2024 Orders Only [facility] Oncology and Hematology - [place] [address] [place] [address] Alex Ambrose MD Anemia, chronic disease 04/29/2024 Orders Only [facility] Oncology and Hematology [facility] [address] [place] [address] Alex Ambrose MD 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); Benign hypertension 04/24/2024 9:30 AM DIRECTOR RETAIL BRAND DEVELOPMENT Office Visit [facility] Oncology and Hematology - [place] [address] Alex Ambrose MD Anemia, chronic disease (Primary Dx) 04/22/2024 Orders Only [facility] Oncology and Hematology - [place] [address] Alex Ambrose MD Anemia, chronic disease 04/19/2024 [facility] - [place] [address] Alex Ambrose MD 04/18/2024 Orders [facility] Oncology and Hematology - [place] [address] Alex Ambrose MD 04/15/2024 Orders Only [facility] Oncology and Hematology - [place] [address] Alex Ambrose MD 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); Benign hypertension 04/08/2024 Orders Only [facility] Oncology and Hematology - [place] [address] [place] [id number] Alex Ambrose MD Anemia, chronic disease 04/01/2024 Orders Only [facility] Oncology and Hematology - [place] [address] Alex Ambrose MD 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); Benign hypertension 03/29/2024 Orders Only [facility] Oncology and Hematology - [place] [address] [place] [id number] Alex Ambrose MD 03/26/2024 8:30 AM DIRECTOR [employer] DEVELOPMENT Office Visit [facility] Oncology and Hematology - [place] [address] [place] [id number] Mable Meeks MD 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) (Primary Dx); Anemia, chronic disease 03/25/2024 [facility] - [place] [address] [place] [id number] Alex Ambrose MD Anemia, chronic disease 03/18/2024 Orders Only [facility] On[facility] - [place] [address] [place] [address] Alex Ambrose MD 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); Benign hypertension 03/11/2024 Orders Only [facility] On[facility]ology - [place] [address] [place] [id number] Alex Abmrose MD Anemia, chronic disease 03/05/2024 8:45 AM DIRECTOR [employer] DEVELOPMENT [facility] Oncology and Hematology - [place] [address] [place] [id number] Alex Ambrose MD 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) (Primary Dx); Anemia, chronic disease 03/05/2024 Orders [facility] - [place] [address] [place] [id number] Alex Ambrose MD 03/04/2024 Orders Only [facility] On[facility] H[facility]ology - [place] [address] [place] [address] Alex Ambrose MD 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); Benign hypertension 02/26/2024 Orders Only [facility] On[facility] - [place] [address] [place] [address] Alex Ambrose MD Anemia, chronic disease 02/23/2024 Orders Only [facility] On[facility] - [place] [address] [place] [address] Alex Ambrose MD 02/19/2024 Orders [facility] - [place] [address] [place] [address] Alex Ambrose MD 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); Benign hypertension from Last 3 Months Family History Medical History Relation Name Comments No Known Problems Child No Known Problems Father Diabetes Mother Relation Name Status Comments Child Alive Father Mother Social History Tobacco Use Types Packs/Day Years Used Date Smoking Tobacco: Former Cigarettes 1.5 40 Tobacco Cessation:Counseling Given: Not Answered Alcohol Use Standard Drinks/Week Comments Yes 0 (1 standard drink = 0.6 oz pur e alcohol) very rare Sex and Gender Information Value Date Recorded Sex Assigned at Not on file Legal Sex Male 9:42 AM CDT Gender Identity Not on file Sexual Orientation Not on file Last Filed Vital Signs Vital Sign Reading Time Taken Comments Blood Pressure 146/81 04/24/2024 9:32 AM DIRECTOR [employer]ELOPMENT Patient states that he is nervous Pulse 73 04/24/2024 9:30 AM DIRECTOR [employer]ELOPMENT Temperature 36.4 C (97.5 F) 04/24/2024 9:30 AM DIRECTOR [employer]ELOPMENT Respiratory Rate 15 04/24/2024 9:30 AM DIRECTOR [employer] DEVELOPMENT Oxygen Saturation 97% 04/24/2024 9:3 0 AM DIRECTOR [employer]ELOPMENT Inhaled Oxygen Concentration - - Weight 90.4 kg (199 lb 3.2 oz) 04/24/2024 9:30 AM DIRECTOR [employer]ELOPMENT Height 170.2 cm (5' 7 ) 12/13/2023 2:39 PM CDT Body Mass Index 31.2 12/13/2023 2:39 PM CDT Plan of Treatment Upcoming Encounters Date Type Department Care Team (Late st Contact Info) Description 06/10/2024 9:00 AM CDT Office Visit [facility] Oncology and Hematology - [place] [address] [facility] [address] [place] [address] Alex [facility] MD [address] [facility] [address] [place] [address] Health Maintenance Due Date Last Done Comments DTAP/TDAP/TD VACCINES (1 - Tdap) 1970 COLORECTAL SCREENING 1996 Colorectal Cancer Screening 1996 FIT-DNA Q 3 years 1996 FIT/FOBT Q 1 year 1996 Flex Sig/CT Colonography Q 5 years 1996 PNEUMOCOCCAL VACCINE 65+ YEARS (1 of 1 - PCV) 03/24/20 ZOSTER VACCINE (1 of 2) 2001 Abdominal Aortic Aneurysm (AAA) Screening 2016 INFLUENZA VACCINE (#1) 2023 [place] ([place] Prev entative Visit/Annual Wellness Visit 04/03/2024 RSV VACCINE (60+ or ) (1 - 1-dose 75+ series) 2026 Procedures Procedure Name Priority Date/Time Associated Diagnosis Comments PET BONE IMG W CT SKL BSE MID THG Routine 04/18/2024 3:17 PM DIRECTOR [employer]ELOPMENT IRON LEVEL Routine 04/18/2024 12:28 PM DIRECTOR [employer]OPMENT BASIC METABOLIC PANEL Routine 03/25/2024 10:26 AM DIRECTOR [employer]ELOPMENT COMPREHENSIVE METABOLIC PANEL Routine 03/25/2024 10:19 AM DIRECTOR [employer]ELOPMENT COMPREHENSIVE METABOLIC PANEL Routine 03/05/2024 3:17 PM DIRECTOR [employer]ELOPMENT CBC WITH DIFFERENTIAL Routine 03/05/2024 2:18 PM DIRECTOR [employer]ELOPMENT BASIC METABOLIC PANEL Routine 03/05/2024 2:08 PM DIRECTOR [employer]ELOPMENT CBC WITH DIFFERENTIAL Routine 02/21/2024 1:05 PM DIRECTOR [employer]ELOPMENT from Last 3 Months Results * PET BONE IMG W CT SKB MDTH (04/18/2024 3:17 PM DIRECTOR [employer] DEVELOPMENT) Anatomical Region Laterality Modality Other us Alex Ambrose MD PE ORDERABLES Final Result * IRON LEVEL (04/18/2024 12:28 PM DIRECTOR [employer] DEVELOPMENT) Blood us Alex Ambrose MD CHEMISTRY ORDERABLES Final Resu lt * BASIC METABOLIC PANEL (03/25/2024 10:26 AM DIRECTOR [employer]ELOPMENT) Only the most recent of2 resultswithin the time period is included. Blood us Alex Ambrose MD CHEMISTRY ORDERABLES Final Resu lt * COMPREHENSIVE METABOLIC PANEL (03/25/2024 10:19 AM DIRECTOR [employer] DEVELOPMENT) Only the most recent of2 resultswithin the time period is included. Blood Alex Ambrose MD CHEMISTRY ORDERABLES Final Resu lt * CBC WITH DIFFERENTIAL (03/05/2024 2:18 PM DIRECTOR [employer] DEVELOPMENT) Only the most recent of2 resultswithin the time period is included. Blood Alex Ambrose MD HEMATOLOGY ORDERABLES Final Res ult from Last 3 Months Insurance [facility] [id number] Care Teams Ranch Hand Supervisor Relationship Specialty Start Date End Date Oleksandr Wilson MD [address] [place] [address] PCP - General Family Practice 02/12/24
--- OUTSIDE RECORDS SUMMARY | 2024-05-20 11:52 | XMS_ITS | Encounter Summary ---
Author Organization [facility] [employer] [facility] Address [address] [place] [address] Care Team Providers Care Librarian Helper Name Role Phone Oleksandr Wilson MD Primary Care Provider [phone] Encounter Details Date Type Department Care Team ([facility] Contact Info) Description 05/20/2024 Orders Only [facility] Oncology and Hematology - [place] [address] [place] [address] Alex Ambrose MD [facility] [employer] [address] [place] [address] Anemia, chronic disease Social History Tobacco Use Types Packs/Day Years Used Date Smoking Tobacco: Former Cigarettes 1.5 40 Alcohol Use Standard Drinks/Week Comments Yes 0 (1 standard drink = 0.6 oz pur e alcohol) very rare Sex and Gender Information Value Date Recorded Sex Assigned at Not on file Legal Sex Male 9:42 AM CDT Gender Identity Not on file Sexual Orientation Not on file documented as of this encounter Plan of Treatment Upcoming Encounters Date Type Department Care Team (Late Contact Info) Description 06/10/2024 9:00 AM CDT Office Visit [facility] Oncology and Hematology - [place] [address] [place] [address] Alex Ambrose MD [facility] [employer] [address] [place] [id number] documented as of this encounter Visit Diagnoses Diagnosis Anemia, chronic disease Anemia of other chronic disease documented in this encounter Care Teams Librarian Helper Relationship Specialty Start Date End Date Oleksandr Wilson MD [address] [place] [address] PCP - General Family Practice 02/12/24 documented as of this encounter
--- OUTSIDE RECORDS SUMMARY | 2024-05-20 11:52 | XMS_ITS | Clinical Summary ---
Author Organization [facility] Address [address] [place] [address] Care Team Providers Care Windows Infrastructure Engineer Name Role Phone Aniket Brown DO Primary Care Provider [phone] Allergies No known active allergies Medications losartan 50 MG tablet Take 50 mg by mouth daily. Active simvastatin 20 MG tablet Take 20 mg by mouth nightly at bedtime. Active carvedilol 6.25 MG tablet Take 6.25 mg by mouth 2 (two) times daily. Active escitalopram 10 MG tablet Take 10 mg by mouth daily. Active lorazepam 0.5 MG tablet Take 0.5 mg by mouth every 6 (six) hours as needed for Anxiety. Active aspirin EC (ASPIRIN EC) 81 MG tablet Take 81 mg by mouth daily. Active Irbesartan-hydr oCHLOROthiazide 300-12.5 MG Tab Take 1 tablet by mouth daily. Active Active Problems No known active problems Social History Tobacco Use Types Packs/Day Years Used Date Smoking Tobacco: Former Cigarettes Q uit: 12/22/2014 Smokeless Tobacco: Never Alcohol Use Standard Drinks/Week Comments Yes 0 (1 standard drink = 0.6 oz pur e alcohol) occasional Sex and Gender Information Value Date Recorded Sex Assigned at Not on file Legal Sex Male 12:34 PM ARTIST AGENT Gender Identity Not on file Sexual Orientation Not on file Last Filed Vital Signs Vital Sign Reading Time Taken Comments Blood Pressure 146/75 05/27/2019 7:56 AM ARTIST AGENT Pulse 59 05/27/2019 7:56 AM ARTIST AGENT Temperature 37 C (98.6 F) 05/27/2019 6:14 AM ARTIST AGENT Respiratory Rate 16 05/27/2019 7:56 AM ARTIST AGENT Oxygen Saturation 97% 05/27/2019 7:56 AM ARTIST AGENT Inhaled Oxygen Concentration - - Weight 95.3 kg (210 lb) 05/22/2019 3:16 PM ARTIST AGENT Height 172.7 cm (5' 8 ) 05/22/2019 3:16 PM ARTIST AGENT Body Mass Index 31.93 05/22/2019 3:16 PM ARTIST AGENT Plan of Treatment Health Maintenance Due Date Last Done Comments Colorectal Cancer Screening Colonoscopy (10 Years) 1951 Hepatitis C 1969 DTaP, Tdap and Td Vaccines ( 1 - Tdap) 1970 Zoster Vaccines (1 of 2) 2001 Annual Medicare Wellness Visit 2016 Pneumococcal Vaccine: 65+ Ye ars (1 of 1 - PCV) 2016 COVID-19 Vaccine ( - 2023-2 5 season) 2023 Influenza Adult (#1) 2024 RSV Immunization or 60+ Years (1 - 1-dose 75+ series) 2026 Meningococcal B Vaccine Aged Out No l onger eligible based on patient's age to complete this topic Meningococcal Vaccine Aged Out No keturah marcial eligible based on patient's age to complete this topic RSV Immunizations Under 20 Months Aged Out No longer eligible based on patient's age to complete this topic Medical Devices Implanted Type Area [employer] Justice Device Identifier Shelf Expiration Date Model / Serial / Lot Iol [employer] - [id number] Implanted:Qty: 1 on 04/29/2019 by James Wilson MD at [facility] Lens Left: Eye [employer] 02/28/2023 [id number] / [id number] / Iol [employer] - [id number] Implanted:Qty: 1 on 05/27/2019 by James Wilson MD at [facility] Lens Right: Eye [employer] 09/27/2022 [id number] / [id number] / [id number] Insurance [facility] Care Teams Windows Infrastructure Engineer Relationship Specialty Start Date End Date Aniket Brown DO [address] [place], [place] [id number] PCP - General INTERNAL MEDICINE 04/24/19
[2024-05-20 13:33] LABS: Hemoglobin A1C 5.1 % (<5.7)
== END 2024-05-20 09:09 | disposition home or self-care (01) ==
LOC: ANHLAB 09:10
PROVIDERS: PCP Nurse Practitioner Family; Visit Provider Nurse Practitioner Family
DX: E11.9 Type 2 diabetes mellitus without complications (principal)
CPT/HCPCS: 36415; 83036

== ENCOUNTER 2024-07-15 10:18 | Outpatient (CLI) | payer MEDICARE, SELFPAY ==
--- NOTE | ~2024-07-15 | CT_ITS ---
Clinical Indication: Esophageal cancer CT Scan of the Chest, Abdomen, and Pelvis with Contrast: Technique: Contiguous sections were acquired throughout the chest, abdomen, and pelvis after intraven ous administration of 100 cc of Omnipaque 350. Dose reduction technique was used on this scan by uti lizing automated exposure control and iterative reconstruction technique. The dose-length product (DL P) was 1116.16 mGy-cm. Comparison: 02/04/2024 Findings: Mildly prominent subcarinal node measures 12 mm in short axis. There is mild wall thickening of the d istal esophagus near the GE junction, improved from prior exam. There is no evidence of pleural or pericardial effusion. There is mild emphysema. Calcified granulomas left upper lobe are noted. Probable mild fatty infiltration of liver. The spleen, pancreas, gallbladder, adrenals and kidneys ar e within normal limits. There are atherosclerotic calcifications of the aorta. No lymphadenopathy. No bowel obstruction or bowel wall thickening. There is no evidence to suggest acute appendicitis. Urinary bladder is unremarkable. No pelvic mass seen. No ascites. Impression: Mild wall thickening distal esophagus, improved from prior exam.. Mildly prominent subcarinal lymph node, decreased from prior exam. Additional nodes seen on prior ex am are also decreased in size. Mild fatty infiltration of liver. Reviewed, dictated and finalized at location . Impression: Mild wall thickening distal esophagus, improved from prior exam.. Mildly prominent subcarinal lymph node, decreased from prior exam. Additional nodes seen on prior exam are also decreased in size. Mild fatty infiltration of liver.
--- OUTSIDE RECORDS SUMMARY | 2024-07-15 11:37 | XMS_ITS | Clinical Summary ---
Author Organization [facility] Address [address] [place] [address] Care Team Providers Care Media Producer Name Role Phone Aniket Brown DO Primary Care Provider [phone] Allergies No known active allergies Medications losartan [...] on file Legal Sex Male 12:[address] Gender Identity Not on file Sexual Orientation Not on file Last Filed Vital Signs Vital Sign Reading Time Taken Comments Blood Pressure 146/75 05/27/2019 7:[address]ER Pulse 59 05/27/2019 7:[address]ER Temperature 37 C (98.6 F) 05/27/2019 6:[address]ER Respiratory Rate 16 05/27/2019 7:[address]ER Oxygen Saturation 97% 05/27/2019 7:[address]ER Inhaled Oxygen Concentration - - Weight 95.3 kg (210 lb) 05/22/2019 3:[address]ER Height 172.7 cm (5' 8 ) 05/22/2019 3:[address]ER Body Mass Index 31.93 05/22/2019 3:[address]ER Plan of Treatment Health Maintenance Due Date Last Done Comments Colorectal Cancer Screening Colonoscopy (10 Years) 1951 Hepatitis C 1969 DTaP, Tdap and Td Vaccines ( 1 - Tdap) 1970 Zoster Vaccines (1 of 2) 2001 Annual Medicare Wellness Visit 2016 Pneumococcal Vaccine: 50+ Ye ars (1 of 1 - PCV) 2016 COVID-19 Vaccine ( - 2023-2 5 season) 2023 RSV Immunization or 60+ Years (1 - [...] this topic Medical Devices Implanted Type Area Burglar Alarm Mechanic Device Identifier Shelf Expiration Date Model / Serial / Lot Iol [employer] - [id number] Implanted:Qty: 1 on 04/29/2019 by James Wilson MD at [facility] Lens Left: Eye [employer] 02/28/2023 ZCB00 / [id number] / Iol [employer] Zcboo - [id number] Implanted:Qty: 1 on 05/27/2019 by James Wilson MD at [facility] Lens Right: Eye [employer] 09/27/2022 [id number] / [id number] / [id number] Insurance [facility] Care Teams Media Producer Relationship Specialty Start Date End Date Aniket Brown DO [address] [place] [address] PCP - General INTERNAL MEDICINE 04/24/19
--- OUTSIDE RECORDS SUMMARY | 2024-07-15 11:37 | XMS_ITS | Clinical Summary ---
[facility] Address [address] [place] [address] Care Team Providers Care Php Architect Name Role Phone Oleksandr Wilson MD Primary Care Provider [phone] [phone] Allergies No known active allergies Medications atorvastatin (LIPITOR) 40 mg tablet Take 1 Tablet by mouth daily. 10/18/2023 Active carvediloL (COREG) 6.25 mg tablet Take 6.25 mg by mouth 2 times daily. Active LORazepam (ATIVAN) 0.5 mg tablet Take 0.5 mg by mouth 2 times daily as needed for Anxiety. Active omeprazole (PriLOSEC) 40 mg Capsule, Delayed Release(E.C.) Take 40 mg by mouth daily. 12/11/2023 Active valsartan-hydro CHLOROthiazide (DIOVAN HCT) 320-12.5 mg tablet Take 1 Tablet by mouth daily. 09/29/2023 Active loratadine (CLARITIN) 5 mg/5 mL solution Take 10 mg by mouth daily. Active potassium chloride (KLOR-CON) 10 mEq Extended Release tablet Take 1 Tablet (10 mEq) by mouth daily with breakfast. 30 Tablet 1 01/30/2024 Active midodrine (PROAMATINE) 2.5 mg Tablet Take 2 Tablets by mouth 3 times daily. Patient is taking as need with at home bp checks at least three times a day. 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); Benign hypertension 07/02/2024 Orders Only [facility] Oncology and Hematology - [place] [address] Alex Ambrose MD 07/01/2024 Orders Only [facility] Oncology and Hematology - [place] [address] Alex Ambrose MD Anemia, chronic disease 06/24/2024 Orders Only [facility] Oncology and Hematology - [place] [address] [place] [address] Alex Ambrose MD 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); Benign hypertension 06/19/2024 External Device Data STL ABSTRACTION Provider, Abstract 06/19/2024 External Device Data STL ABSTRACTION Provider, Abstract 06/17/2024 Orders Only [facility] Oncology and Hematology - [place] [address] [place] [address] Alex Ambrose MD Anemia, chronic disease 06/10/2024 9:00 AM CDT Office Visit [facility] Oncology and Hematology - [place] [address] [place] [address] Alex Ambrose MD 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); Benign hypertension 06/10/2024 External Device Data STL ABSTRACTION Provider, Abstract 06/10/2024 Orders Only [facility] Oncology and Hematology - [place] [address] [place] [id number] Alex Ambrose MD 06/08/2024 External Device Data STL ABSTRACTION Provider, Abstract 06/07/2024 External Device Data STL ABSTRACTION Provider, Abstract 06/05/2024 External Device Data STL ABSTRACTION Provider, Abstract 06/03/2024 Orders Only [facility] Oncology and Hematology - [place] [address] [place] [address] Alex Ambrose MD Anemia, chronic disease 05/27/2024 Orders Only [facility] Oncology and Hematology - [place] [address] [place] [address] Alex Ambrose MD 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); Benign hypertension 05/23/2024 Abstract [facility] Oncology and Hematology - [place] [address] [place] [address] Alex Ambrose MD 05/22/2024 External Device Data STL ABSTRACTION Provider, Abstract 05/20/2024 Orders Only [facility] Oncology and Hematology - [place] [address] [place] [address] Alex Ambrose MD Anemia, chronic disease 05/16/2024 Refill [facility] Oncology and Hematology - [place] [address] [place] [address] Alex Ambrose MD 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) (Primary Dx) 05/13/2024 Orders Only [facility] Oncology and Hematology - [place] [address] [place] [address] Alex Ambrose MD 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); Benign hypertension 05/06/2024 Orders Only [facility] Oncology and Hematology - [place] [address] Alex Ambrose MD Anemia, chronic disease 04/29/2024 Orders Only [facility] Oncology and Hematology - [place] [address] [place] [address] Alex Ambrose MD 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); Benign hypertension 04/24/2024 9:30 AM SCREEN PRINTER Office Visit [facility] Oncology and Hematology - [place] [address] [place] [address] Alex Ambrose MD Anemia, chronic disease (Primary Dx) 04/22/2024 Orders Only [facility] Oncology and Hematology - [place] [address] [place] [address] Alex Ambrose MD Anemia, chronic disease 04/19/2024 Orders Only [facility] Oncology and Hematology - [place] [address] [place] [address] Alex Ambrose MD 04/18/2024 Orders Only [facility] Oncology and Hematology - [place] [address] [place] [address] Alex Ambrose MD from Last 3 Months Family History Medical [...] Sign Reading Time Taken Comments Blood Pressure 137/76 06/10/2024 9:15 AM CDT Pulse 66 06/10/2024 9:15 AM CDT Temperature 36.1 C (97 F) 06/10/2024 9:15 AM CDT Respiratory Rate 15 06/10/2024 9:15 AM CDT Oxygen Saturation 95% 06/10/2024 9:15 AM CDT Inhaled Oxygen Concentration - - Weight 95.3 kg (210 lb) 06/10/2024 9:15 AM CDT Height 170.2 cm (5' 7 ) 12/13/2023 2:39 PM CDT Body Mass Index 32.89 12/13/2023 2:39 PM CDT Plan of Treatment Upcoming Encounters Date Type Department Care Team (Late st Contact Info) Description 07/22/2024 9:30 AM CDT Office Visit [facility] Oncology and Hematology - [place] [address] [place] [address] Reva Aquino MD [address] [place] [address] Health Maintenance Due Date Last Done Comments DTAP/TDAP/TD VACCINES (1 - Tdap) 1970 COLORECTAL SCREENING 1996 Colorectal Cancer Screening 1996 FIT-DNA Q 3 years 1996 FIT/FOBT Q 1 year 1996 Flex Sig/CT Colonography Q 5 years 1996 PNEUMOCOCCAL VACCINE 50+ YEARS (1 of 1 - PCV) 03/24/20 ZOSTER VACCINE (1 of 2) 2001 Abdominal Aortic Aneurysm (AAA) Screening 2016 INFLUENZA VACCINE (#1) 2023 [place] Prev entative Visit/Annual Wellness Visit 04/03/2024 RSV VACCINE (60+ or ) (1 - 1-dose 75+ series) 2026 Procedures Procedure Name Priority Date/Time Associated Diagnosis Comments COMPREHENSIVE METABOLIC PANEL Routine 07/01/2024 11:35 AM CDT CBC MIXED CELL DIFFERENTIAL Routine 07/01/2024 11:23 AM CDT BASIC METABOLIC PANEL Routine 07/01/2024 11:07 AM CDT BASIC METABOLIC PANEL Routine 06/10/2024 1:40 PM CDT PET BONE IMG W CT SKL BSE MID THG Routine 04/18/2024 3:17 PM SCREEN PRINTER IRON LEVEL Routine 04/18/2024 12:28 PM SCREEN PRINTER from Last 3 Months Results * COMPREHENSIVE METABOLIC PANEL (07/01/2024 11:35 AM CDT) Blood us Alex Ambrose MD CHEMISTRY ORDERABLES Final Resu lt * CBC MIXED CELL DIFFERENTIAL (07/01/2024 11:23 AM CDT) Blood us Alex Ambrose MD HEMATOLOGY ORDERABLES Final Res ult * BASIC METABOLIC PANEL (07/01/2024 11:07 AM CDT) Only the most recent of2 resultswithin the time period is included. Blood us Alex Ambrose MD CHEMISTRY ORDERABLES Final Resu lt * PET BONE IMG W CT SKB MDTH (04/18/2024 3:17 PM SCREEN PRINTER) Anatomical Region Laterality Modality Positron Emissio n Tomography (PET) us Alex Ambrose MD PE ORDERABLES Final Result * IRON LEVEL (04/18/2024 12:28 PM SCREEN PRINTER) Blood us Alex Ambrose MD CHEMISTRY ORDERABLES Final Resu lt from Last 3 Months Insurance [facility] [id number] Care Teams Php Architect Relationship Specialty Start Date End Date Oleksandr Wilson MD [address] [place] [address] PCP - General Family Practice 02/12/24
--- OUTSIDE RECORDS SUMMARY | 2024-07-15 11:37 | XMS_ITS | Encounter Summary ---
Author Organization [facility] Address [address] [place] [address] Care Team Providers Care Recruiting Assistant Name Role Phone Oleksandr Wilson MD Primary Care Provider [phone] Encounter Details Date Type Department Care Team ([facility] Contact Info) Description 07/15/[address] [facility] Oncology and Hematology - [place] [address] [place] [address] Alex Ambrose MD [address] [facility] [address] [place] [address] Anemia, chronic disease Social History Tobacco [...] Department Care Team (Late Contact Info) Description 07/22/2024 9:30 AM CDT Office Visit [facility] Oncology and Hematology - [place] [address] [place] [address] Reva Aquino MD [address] [place] [address] documented as of this encounter Visit Diagnoses Diagnosis Anemia, chronic disease Anemia of other chronic disease documented in this encounter Care Teams Recruiting Assistant Relationship Specialty Start Date End Date Oleksandr Wilson MD [address] [place] [address] PCP - General Family Practice 02/12/24 documented as of this encounter
== END 2024-07-15 10:19 | disposition home or self-care (01) ==
PROVIDERS: PCP Nurse Practitioner Family; Visit Provider Internal Medicine Hematology & Oncology
DX: C15.4 Malignant neoplasm of middle third of esophagus (principal); K76.0 Fatty (change of) liver, not elsewhere classified
CPT/HCPCS: 71260; 74177; Q9967

== ENCOUNTER 2024-10-07 08:54 | Outpatient (CLI) | payer MEDICARE, SELFPAY ==
--- NOTE | ~2024-10-07 | CT_ITS ---
Clinical Indication: Esophageal cancer CT Scan of the Chest, Abdomen, and Pelvis with Contrast: Technique: Contiguous sections were acquired throughout the chest, abdomen, and pelvis after intraven ous administration of 100 cc of Omnipaque 350. Dose reduction technique was used on this scan by uti lizing automated exposure control and iterative reconstruction technique. The dose-length product (DL P) was 1064.77 mGy-cm. Comparison: 07/15/2024 Findings: There is no evidence of any significant mediastinal, hilar or axillary lymphadenopathy. There is wall thickening of the esophagus, especially the distal aspect, which reflect esophagitis, treated diseas e, versus residual neoplasm.. There is no evidence of pleural or pericardial effusion. Stable 3 mm right lower lobe pulmonary nodule (axial image 73). Calcified lingular granuloma present. . Minimal emphysema. There is diffuse hepatic steatosis. The spleen, pancreas, gallbladder, adrenals and kidneys are withi n normal limits. No evidence of aortic aneurysm. No lymphadenopathy. No bowel obstruction or bowel wall thickening. There is no evidence to suggest acute appendicitis. Urinary bladder is unremarkable. No pelvic mass seen. No ascites. Impression: Esophageal wall thickening, especially at the distal aspect. Correlate for esophagitis, treated disea se, or residual neoplasm. Stable 3 mm right lower lobe pulmonary nodule. Diffuse hepatic steatosis. Reviewed, dictated and finalized at [facility]. Impression: Esophageal wall thickening, especially at the distal aspect. Correlate for esop hagitis, treated disease, or residual neoplasm. Stable 3 mm right lower lobe pulmonary nodule. Diffuse hepatic steatosis.
--- OUTSIDE RECORDS SUMMARY | 2024-10-07 09:08 | XMS_ITS | Clinical Summary ---
[facility] Organization [facility] Address [address] [address] Care Team Providers Care Clinical Biostatistics Director Name Role Phone Oleksandr Wilson MD Primary Care Provider [phone] Allergies No known active allergies Medications atorvastatin [...] Encounters Date Type Department Care Team Description 10/07/2024 Orders Only [facility] Oncology and Hematology - [place] [address] Alex Ambrose MD Anemia, chronic disease 09/30/2024 Orders Only [facility] Oncology and Hematology - [place] Te[address] Alex Ambrose MD 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); Benign hypertension 09/23/2024 Orders Only [facility] Oncology and Hematology - [place] [address] Alex Ambrose MD Anemia, chronic disease 09/17/2024 External Device Data STL ABSTRACTION Provider, Abstract 09/16/2024 Orders Only [facility] Oncology and Hematology - [place] [address] [place] [address] Alex Ambrose MD 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); Benign hypertension 09/09/2024 Orders Only [facility] Oncology and Hematology - [place] [address] [place] [address] Alex Ambrose MD Anemia, chronic disease 09/02/2024 9:45 AM CDT Office Visit [facility] Oncology and Hematology - [place] [address] [place] [address] Alex Ambrose MD 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); Benign hypertension 09/02/2024 Orders Only [facility] Oncology and Hematology - [place] [address] [place] [address] Alex Ambrose MD 08/27/2024 External Device Data STL ABSTRACTION Provider, Abstract 08/26/2024 [facility] On[facility] and Hematology - [place] [address] [place] [address] Alex Ambrose MD Anemia, chronic disease 08/22/2024 External Device Data STL ABSTRACTION Provider, Abstract 08/21/2024 External Device Data STL ABSTRACTION Provider, Abstract 08/20/2024 External Device Data STL ABSTRACTION Provider, Abstract 08/19/2024 [facility] Oncology and Hematology - [place] [address] [place] [address] Alex Ambrose MD 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); Benign hypertension 08/14/2024 Orders Only [facility] Oncology and Hematology - [place] [address] [place] [address] Alex Ambrose MD 08/12/2024 Orders Only [facility] Oncology and Hematology - [place] [address] [place] [address] Alex Ambrose MD Anemia, chronic disease 08/05/2024 Orders Only [facility] Oncology and Hematology - [place] [address] [place] [address] Alex Ambrose MD 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); Benign hypertension 07/29/2024 Orders Only [facility] Oncology and Hematology - [place] [address] [place] [address] Alex Ambrose MD Anemia, chronic disease 07/22/2024 9:30 AM CDT Office Visit [facility] Oncology and Hematology - [place] [address] [place] [address] Reva Aquino MD 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) (Primary Dx) 07/22/2024 Orders Only [facility] Oncology and Hematology - [place] [address] [place] [address] Alex Ambrose MD 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); Benign hypertension 07/16/2024 External Device Data STL ABSTRACTION Provider, Abstract 07/15/2024 Orders Only [facility] Oncology and Hematology [facility] [address] [place] [address] Alex Ambrose MD Anemia, chronic disease 07/08/2024 Orders Only [facility] Oncology and Hematology - [place] [address] [place] [address] Alex Ambrose MD Cancer of middle third [...] Sign Reading Time Taken Comments Blood Pressure 126/65 09/02/2024 9:53 AM CDT Pulse 58 09/02/2024 9:53 AM CDT Temperature 36.3 C (97.4 F) 09/02/2024 9:53 AM CDT Respiratory Rate 15 09/02/2024 9:53 AM CDT Oxygen Saturation 95% 09/02/2024 9:53 AM CDT Inhaled Oxygen Concentration - - Weight 94.2 kg (207 lb 9.6 oz) 09/02/2024 9:53 A M CDT Height 170.2 cm (5' 7) 12/13/2023 2:39 PM CDT Body Mass Index 32.51 12/13/2023 2:39 PM CDT Plan of Treatment Upcoming Encounters Date Type Department Care Team (Late st Contact Info) Description 10/14/2024 9:15 AM CDT Office Visit [facility] Oncology and Hematology - [place] [address] [facility] [address] [place] [address] Alex Ambrose MD [address] [facility] [address] [place] [address] Health Maintenance Due Date Last [...] Aneurysm (AAA) Screening 2016 INFLUENZA VACCINE (#1) 2024 RSV VACCINE (60+ or ) (1 - 1-dose 75+ series) 2026 Procedures Procedure Name Priority Date/Time Associated Diagnosis Comments BASIC METABOLIC PANEL Routine 09/23/2024 4:14 PM CDT COMPREHENSIVE METABOLIC PANEL Routine 09/23/2024 4:12 PM CDT BASIC METABOLIC PANEL Routine 09/02/2024 3:00 PM CDT COMPREHENSIVE METABOLIC PANEL Routine 09/02/2024 2:39 PM CDT COMPREHENSIVE METABOLIC PANEL Routine 08/12/2024 11:54 AM CDT BASIC METABOLIC PANEL Routine 08/12/2024 11:[address] CHEST ABDOMEN PELVIS W CONT Routine 07/15/2024 1:46 PM CDT from Last 3 Months Results * BASIC METABOLIC PANEL (09/23/2024 4:14 PM CDT) Only the most recent of3 resultswithin the time period is included. Blood us Alex Ambrose MD CHEMISTRY ORDERABLES Final Resu lt * COMPREHENSIVE METABOLIC PANEL (09/23/2024 4:12 PM CDT) Only the most recent of3 resultswithin the time period is included. Blood Alex Ambrose MD CHEMISTRY ORDERABLES Final Resu lt * CT CHEST ABDOMEN PELVIS W CONT (07/15/2024 1:46 PM CDT) Anatomical Region Laterality Modality Chest Computed Tomogra phy Alex Ambrose MD CT ORDERABLES Final Result from Last 3 Months Insurance [facility] [id number] Member Subscriber Plan / Payer (Ef fective 2023-Present) Name:Karthik Ordonez Relation to Subscriber:Self Name:Karthik Ordonez Payer ID:[id number] (NAIC) Type:PPO Address: [place] [id number] Care Teams Clinical Biostatistics Director Relationship Specialty Start Date End Date Oleksandr Wilson MD [address] [place] [address] PCP - General Family Practice 02/12/24
--- OUTSIDE RECORDS SUMMARY | 2024-10-07 09:08 | XMS_ITS | Encounter Summary ---
Author Organization [facility] Address [address] [place] [address] Care Team Providers Care Firmware Developer Name Role Phone Oleksandr Wilson MD Primary Care Provider [phone] Encounter Details Date Type Department Care Team ([facility] Contact Info) Description 10/07/2024 Orders Only [facility] Oncology and Hematology - [place] [address] [place] [address] Alex Ambrose MD [facility] [employer] [address] [place] [address] Anemia, chronic disease Social History Tobacco [...] Department Care Team (Late Contact Info) Description 10/14/2024 9:15 AM CDT Office Visit [facility] Oncology and Hematology - [place] [address] [place] [address] Alex Ambrose MD [facility] [employer] [address] [place] [address] documented as of this encounter Visit Diagnoses Diagnosis Anemia, chronic disease Anemia of other chronic disease documented in this encounter Care Teams Firmware Developer Relationship Specialty Start Date End Date Oleksandr Wilson MD [address] [place] [address] PCP - General Family Practice 02/12/24 documented as of this encounter
== END 2024-10-07 08:55 | disposition home or self-care (01) ==
PROVIDERS: PCP Nurse Practitioner Family; Visit Provider Internal Medicine Hematology & Oncology
DX: C15.4 Malignant neoplasm of middle third of esophagus (principal); K76.0 Fatty (change of) liver, not elsewhere classified; R91.1 Solitary pulmonary nodule
CPT/HCPCS: 71260; 74177; Q9967

== ENCOUNTER 2024-12-30 08:31 | Outpatient (CLI) | payer MEDICARE, SELFPAY ==
--- NOTE | ~2024-12-30 | CT_ITS ---
EXAMINATION: CT chest abdomen pelvis w con DATE: 12/30/2024 08:52 INDICATION: Cancer of middle third of esophagus. TECHNIQUE: Computed tomography (CT) of the chest, abdomen, and pelvis was performed with 100 mL Omnipaque 350 intravenous contrast. Automated exposure control and iterative reconstruction technique were employed. The dose-length product was 1074.99 mGy-cm. COMPARISON: CT 10/07/2024, 11/29/2023 FINDINGS: CHEST CT: There is mild emphysema. A calcified left lung nodule and calcified left hilar lymph nodes are consistent with old granulomatous disease. There is a 4 mm nodule in right lower lobe, stable from 11/29/2023, likely benign. There is no pleural effusion. The heart size is normal. There are coronary artery c alcifications. No pericardial effusion. There is a small sliding hiatal hernia. There is wall thickening of the distal esophagus. There is a right internal jugular port with tip in superior vena cava. There is severe cervical and thoracic spondylosis. ABDOMEN/PELVIS CT: The liver and gallbladder are normal. Calcifications in the spleen are consistent with old granulomatous disease. The pancreas, adrenal glands, and kidneys are normal. The prostate is mildly enlarged. There is diverticulosis of the colon without evidence of diverticulitis. There are no dilated loops of bowel. The appendix is normal. There are no pathologically enlarged lymph nodes. There is no free intraperitoneal fluid. There are bilateral inguinal hernias containing fat. There is severe lumbar spondylosis. IMPRESSION: 1. Mild wall thickening of the distal esophagus, consistent with radiation esophagitis and treated malignancy. 2. Small sliding hiatal hernia. Reviewed, dictated and finalized at location E. IMPRESSION: 1. Mild wall thickening of the distal esophagus, consistent with radiation esop hagitis and treated malignancy. 2. Small sliding hiatal hernia.
--- OUTSIDE RECORDS SUMMARY | 2024-12-30 08:42 | XMS_ITS | Clinical Summary ---
[facility] Organization [facility] Address [address] [place] [address] Care Team Providers Care Registered Nurse Float Pool Name Role Phone Oleksandr Wilson MD Primary Care Provider [phone] Allergies No known active allergies Medications atorvastatin [...] CreamIndication s:Cancer of middle third of esophagus Apply a quarter size amount to port site 30 minutes before access. 30 Gram 1 05/16/2024 Active ondansetron (ZOFRAN ODT) 8 mg Tablet, Rapid DissolveIndicat ions:Cancer of middle third of esophagus Dissolve 1 tablet on top of tongue then swallow with saliva every 8 hours as needed for nausea or vomiting 30 Tablet 1 05/16/2024 Active escitalopram oxalate (LEXAPRO) 10 mg tablet Take 10 mg by mouth daily. 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); Benign hypertension 12/17/2024 External Device Data STL ABSTRACTION Provider, Abstract 12/17/2024 Orders Only [facility] Oncology and Hematology - [place] [address] [place] [id number] Alex Ambrose MD 12/16/2024 Orders Only [facility] Oncology and Hematology - [place] [address] [place] [id number] Alex Ambrose MD Anemia, chronic disease 12/09/2024 Orders Only [facility] Oncology and Hematology - [place] [address] [place] [id number] Alex Ambrose MD 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); Benign hypertension 12/02/2024 Orders Only [facility] Oncology and Hematology - [place] [address] [place] [address] Alex Ambrose MD Anemia, chronic disease 11/26/2024 Orders Only [facility] Oncology and Hematology - [place] [address] [place] [id number] Alex Ambrose MD 11/25/2024 9:30 AM CDT Office Visit [facility] Oncology and Hematology - [place] [address] [place] [phone] Alex Ambrose MD 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); Benign hypertension 11/25/2024 Orders Only [facility] Oncology and Hematology - [place] [address] [place] [address] Alex Ambrose MD 11/19/2024 External Device Data STL ABSTRACTION Provider, Abstract 11/18/2024 Orders Only [facility] Oncology and Hematology - [place] [address] [place] [id number] Alex Ambrose MD Anemia, chronic disease 11/11/2024 Orders Only [facility] Oncology and Hematology - [place] [address] [place] [address] Alex Ambrose MD 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); Benign hypertension 11/05/2024 External Device Data STL ABSTRACTION Provider, Abstract 11/05/2024 Orders Only [facility] Oncology and Hematology - [place] [address] [place] [id number] Alex Ambrose MD 11/04/2024 Orders Only [facility] Oncology and Hematology - [place] [address] [place] [id number] Alex Ambrose MD Anemia, chronic disease 10/28/2024 Orders Only [facility] Oncology and Hematology - [place] [address] [place] [address] Alex Ambrose MD 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); Benign hypertension 10/21/2024 Orders Only [facility] Oncology and Hematology - [place] [address] [place] [address] Alex Ambrose MD Anemia, chronic disease 10/14/2024 9:15 AM CDT Office Visit [facility] Oncology and Hematology - [place] [address] [place] [address] Alex Ambrose MD 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); Benign hypertension 10/07/2024 Orders Only [facility] Oncology and Hematology - [place] [address] [place] [address] Alex Ambrose MD Anemia, chronic disease 09/30/2024 Orders Only [facility] Oncology and Hematology - [place] [address] [place] [address] Alex Ambrose MD Cancer of [...] Sign Reading Time Taken Comments Blood Pressure 130/69 11/25/2024 9:25 AM CDT Pulse 85 11/25/2024 9:21 AM CDT Temperature 36.4 C (97.5 F) 11/25/2024 9:21 AM CDT Respiratory Rate 16 11/25/2024 9:21 AM CDT Oxygen Saturation 95% 11/25/2024 9:21 AM CDT Inhaled Oxygen Concentration - - Weight 94.8 kg (209 lb) 11/25/2024 9:21 AM CDT Height 170.2 cm (5' 7) 12/13/2023 2:39 PM CDT Body Mass Index 32.73 12/13/2023 2:39 PM CDT Plan of Treatment Upcoming Encounters Date Type Department Care Team (Late st Contact Info) Description 01/06/2025 10:15 AM CDT Office Visit [facility] Oncology and Hematology - [place] [address] [place] [address] Alex Ambrose MD [address] [place] [address] Health Maintenance Due Date Last Done Comments DIABETES ANNUAL FOOT EXAM 1969 DIABETES ANNUAL RETINAL EXAM 1969 DIABETES HBA1C Q 6 MONTHS 1969 DIABETES MICROALBUMIN ANNUAL SCREEN 1969 LDL CHOLESTEROL ANNUAL 1969 DTAP/TDAP/TD VACCINES (1 - Tdap) 1970 PNEUMOCOCCAL VACCINE 50+ YEARS (1 of 2 - PCV) 03/24/19 70 COLORECTAL SCREENING 1996 Colorectal Cancer Screening 1996 FIT-DNA Q 3 years 1996 FIT/FOBT Q 1 year 1996 Flex Sig/CT Colonography Q 5 years 1996 ZOSTER VACCINE (1 of 2) 2001 Abdominal Aortic Aneurysm (AAA) Screening 2016 INFLUENZA VACCINE (#1) 2024 RSV VACCINE (60+ or ) (1 - 1-dose 75+ series) 2026 Procedures Procedure Name Priority Date/Time Associated Diagnosis Comments BASIC METABOLIC PANEL Routine 12/16/2024 12:28 PM CDT CBC WITH AUTODIFFERENTIAL Routine 2024 12:26 PM CDT COMPREHENSIVE METABOLIC PANEL Routine 11/25/2024 2:29 PM CDT BASIC METABOLIC PANEL Routine 11/25/2024 10:12 AM CDT COMPREHENSIVE METABOLIC PANEL Routine 11/04/2024 10:46 AM CDT BASIC METABOLIC PANEL Routine 11/04/2024 10:41 AM CDT CBC WITH AUTODIFFERENTIAL Routine 2024 10:37 AM CDT from Last 3 Months Results * BASIC METABOLIC PANEL (12/16/2024 12:28 PM CDT) Only the most recent of3 resultswithin the time period is included. Blood Alex Ambrose MD CHEMISTRY ORDERABLES Final Resu lt * CBC WITH AUTODIFFERENTIAL (12/16/2024 12:26 PM CDT) Only the most recent of2 resultswithin the time period is included. Blood Alex Ambrose MD HEMATOLOGY ORDERABLES Final Res ult * COMPREHENSIVE METABOLIC PANEL (11/25/2024 2:29 PM CDT) Only the most recent of2 resultswithin the time period is included. Blood Alex Ambrose MD CHEMISTRY ORDERABLES Final Resu lt from Last 3 Months Insurance [facility] [id number] Care Teams Registered Nurse Float Pool Relationship Specialty Start Date End Date Oleksandr Wilson MD [address] [place] [address] PCP - General Family Practice 02/12/24
--- OUTSIDE RECORDS SUMMARY | 2024-12-30 08:42 | XMS_ITS | Encounter Summary ---
Author Organization [facility] [employer] [facility] Address [address] [place] [address] Care Team Providers Care [facility] Name Role Phone Oleksandr Wilson MD Primary Care Provider [phone] Encounter Details Date Type Department Care Team ([facility] Contact Info) Description 12/30/2024 Orders Only [facility] Oncology and Hematology - [place] [address] [place] [address] Alex Ambrose MD [facility] [address] [place] [phone] Anemia, chronic disease Social History Tobacco [...] Department Care Team (Late Contact Info) Description 01/06/2025 10:15 AM CDT Office Visit [facility] Oncology and Hematology - [place] [address] [place] [address] Alex Ambrose MD [facility] [address] [place] [phone] documented as of this encounter Visit Diagnoses Diagnosis Anemia, chronic disease Anemia of other chronic disease documented in this encounter Care Teams [facility] Relationship Specialty Start Date End Date Oleksandr Wilson MD [address] [place] [address] PCP - General Family Practice 02/12/24 documented as of this encounter
== END 2024-12-30 08:32 | disposition home or self-care (01) ==
PROVIDERS: PCP Nurse Practitioner Family; Visit Provider Internal Medicine Hematology & Oncology
DX: K22.89 Other specified disease of esophagus (principal); K44.9 Diaphragmatic hernia without obstruction or gangrene; C15.4 Malignant neoplasm of middle third of esophagus
CPT/HCPCS: 71260; 74177; Q9967